=== PATIENT | female | born 1955 | race Two or more races ===

== ENCOUNTER 2017-03-18 12:22 | Emergency (ER) | payer MEDICAID ==
[~2017-03-18] VITALS: Ht 160 cm; Wt 72.6 kg
[~2017-03-18 12:22] MED LIST: ALBUAER3 IN; ALPR0.5T7 PO; AMIT PO; AMLO10TA2 PO; ATEN100T PO; CARI-316 PO; CHOL1TAB42 PO; CLO01T PO; FLUO20CA19 PO; FURO20TA PO; GABA-497 PO; HYDR12.56 PO; IBUP800T24 PO; INSLANTI SC; LEVO500T21 PO; LISI40TA PO; LORA-516 PO; MET10T PO; METF-371 PO; NOR10T PO; OLAN20TA13 PO; OMEP20CA74 PO; POTA12PO2 PO; RANI300T3 PO; SIMV-8 PO
[2017-03-18 12:47] VITALS: BP 140/86
[2017-03-18] MEDS ORDERED: KETOROLAC TROMETH 60MG/2ML VIAL IM ONE (14:30)
== END 2017-03-18 15:48 | disposition home or self-care (01) ==
LOC: ER 12:22 → EDBD 12:22 → ER 15:48
DX: S63.501A Unspecified sprain of right wrist, initial encounter (principal); S80.02XA Contusion of left knee, initial encounter; S09.90XA Unspecified injury of head, initial encounter; J44.9 Chronic obstructive pulmonary disease, unspecified; I25.10 Atherosclerotic heart disease of native coronary artery without angina pectoris; E11.9 Type 2 diabetes mellitus without complications; K21.9 Gastro-esophageal reflux disease without esophagitis; I10 Essential (primary) hypertension; Z90.710 Acquired absence of both cervix and uterus; Z79.4 Long term (current) use of insulin; W01.0XXA Fall on same level from slipping, tripping and stumbling without subsequent striking against object, initial encounter; Y93.01 Activity, walking, marching and hiking; Y99.8 Other external cause status; Y92.89 Other specified places as the place of occurrence of the external cause
CPT/HCPCS: 70450; 73110; 73562; 96372; 99284; J1885

== ENCOUNTER 2017-07-23 12:43 | Emergency (ER) | payer MEDICAID ==
[~2017-07-23] VITALS: Ht 160 cm; Wt 72.6 kg
[~2017-07-23 12:43] MED LIST changes: -ALBUAER3 IN; -AMIT PO; -GABA-497 PO; +GABA300C10 PO; -IBUP800T24 PO; -LEVO500T21 PO; -MET10T PO; -NOR10T PO; -OLAN20TA13 PO; -RANI300T3 PO; -SIMV-8 PO
[2017-07-23] MEDS ORDERED: cloNIDine HCL 0.1 MG TAB PO ONE (13:15)
[2017-07-23 14:23] LABS: Basophils # (auto) 0 uL; Basophils % (auto) 0.5 % (0.0-2.0); Eosinophils # (auto) 0.1 uL; Eosinophils % (auto) 1.2 % (0.0-7.0); Hematocrit 38.3 % (36.0-46.0); Hemoglobin 12.7 g/dL (12.2-16.2); Lymphocytes % (auto) 39.8 % (10.0-50.0); Mean Corpuscular Hemoglobin 27.6 pg (28.0-32.0); Mean Corpuscular Volume 83.6 fL (80.0-100.0); Monocytes # (auto) 0.4 uL; Monocytes % (auto) 5.2 % (0.0-12.0); Neutrophils % (auto) 53.3 % (37.0-80.0); Nucleated Red Blood Cells % 0.1 %; Platelet Count (auto) 432 10^3/uL (140-450); Red Blood Cells 4.59 10^6/uL (4.0-5.20); Red Cell Distribution Width 13.1 % (11.8-14.3); White Blood Cell 7.6 10^3/uL (4.4-10.8)
[2017-07-23 14:30] LABS: INR 0.95 (0.9-1.15); Partial Thromboplastin Time 28.5 sec (22.64-33.71); Prothrombin Time 10.3 sec (9.37-12.3)
[2017-07-23 14:45] LABS: Alanine Aminotransferase 37 U/L (13-56); Albumin 3.8 g/dL (3.4-5.0); Alkaline Phosphatase 176 U/L (45-117); Anion Gap 9 (5-15); Aspartate Aminotransferase 43 U/L (15-37); BUN/Creatinine Ratio 14.1; Bilirubin, Total 0.1 mg/dL (0.2-1.0); Blood Urea Nitrogen 13 mg/dL (7-18); Calcium 9.3 mg/dL (8.5-10.1); Carbon Dioxide 29 mmol/L (21-32); Chloride 97 mmol/L (98-107); GFR African American 80 mL/min; GFR Non-African American 66 mL/min; Glucose 344 mg/dL (74-106); Potassium 3.8 mmol/L (3.5-5.1); Sodium 135 mmol/L (136-145); Total Protein 8.1 g/dL (6.4-8.2)
[2017-07-23 15:01] LABS: Urine Bacteria NONE SEEN /hpf (None Seen); Urine Blood Negative /uL (Negative); Urine WBC <1 /hpf (0 - 5)
[2017-07-23] MEDS ORDERED: InsuLIN REG 1unit/0.01ml Soln (100units/ml) SC ONE (16:30)
[2017-07-23] MEDS ORDERED: HYDROcodone-ACET 10/325MG TAB PO ONE (17:00)
[2017-07-23 17:14] VITALS: BP 167/95
== END 2017-07-23 17:36 | disposition home or self-care (01) ==
LOC: ER 12:43 → EDBD 12:43 → ER 17:36
DX: I10 Essential (primary) hypertension (principal); R51 Headache; K21.9 Gastro-esophageal reflux disease without esophagitis; J44.9 Chronic obstructive pulmonary disease, unspecified; E11.9 Type 2 diabetes mellitus without complications; E78.5 Hyperlipidemia, unspecified; Z90.710 Acquired absence of both cervix and uterus; Z79.4 Long term (current) use of insulin
CPT/HCPCS: 36415; 71046; 80053; 81001; 82962; 83880; 84484; 85025; 85610; 85730; 93005; 96372; 99285; J1815

== ENCOUNTER 2017-09-21 16:42 | Emergency (ER) | payer MEDICAID ==
[~2017-09-21] VITALS: Ht 160 cm; Wt 74.8 kg
[2017-09-21 16:57] VITALS: BP 177/106
[2017-09-21 18:25] LABS: Basophils # (auto) 0.1 uL; Hematocrit 38.6 % (36.0-46.0); Hemoglobin 13.2 g/dL (12.2-16.2); Mean Corpuscular Hgb Conc. 34.2 g/dL (32.0-36.0); Monocytes # (auto) 0.6 uL; Neutrophils # (auto) 5.6 uL; Nucleated Red Blood Cells % 0.2 %; Platelet Count (auto) 584 10^3/uL (140-450)
[2017-09-21 18:27] LABS: Eosinophils # (auto) 0 uL; Eosinophils % (auto) 0.5 % (0.0-7.0); Lymphocytes # (auto) 3.9 uL; Lymphocytes % (auto) 37.6 % (10.0-50.0); Mean Corpuscular Hemoglobin 27.8 pg (28.0-32.0); Mean Corpuscular Volume 81.5 fL (80.0-100.0); Monocytes % (auto) 6.2 % (0.0-12.0); Neutrophils % (auto) 54.7 % (37.0-80.0); Red Blood Cells 4.74 10^6/uL (4.0-5.20); Red Cell Distribution Width 14.2 % (11.8-14.3); White Blood Cell 10.3 10^3/uL (4.4-10.8)
[2017-09-21 18:44] LABS: Albumin 4.4 g/dL (3.4-5.0); Anion Gap 11 (5-15); Calcium 9.1 mg/dL (8.5-10.1); Carbon Dioxide 22 mmol/L (21-32); Chloride 97 mmol/L (98-107); Glucose 166 mg/dL (74-106); Potassium 3.4 mmol/L (3.5-5.1); Sodium 130 mmol/L (136-145)
[2017-09-21 18:49] LABS: Alanine Aminotransferase 30 U/L (13-56); Alkaline Phosphatase 87 U/L (45-117); Aspartate Aminotransferase 12 U/L (15-37); BUN/Creatinine Ratio 7.4; Bilirubin, Total 0.3 mg/dL (0.2-1.0); Blood Urea Nitrogen 7 mg/dL (7-18); GFR African American 78 mL/min; GFR Non-African American 65 mL/min; Total Protein 8.7 g/dL (6.4-8.2)
== END 2017-09-21 22:40 | disposition left against medical advice (07) ==
LOC: EDBD 16:42 → ER 16:58
DX: I10 Essential (primary) hypertension (principal); R55 Syncope and collapse; Z53.21 Procedure and treatment not carried out due to patient leaving prior to being seen by health care provider
CPT/HCPCS: 36415; 70450; 71045; 80053; 84484; 85025; 93005

== ENCOUNTER 2017-10-11 13:55 | Emergency (ER) | payer MEDICAID ==
[~2017-10-11] VITALS: Ht 160 cm; Wt 71.2 kg
[2017-10-11 14:15] VITALS: BP 179/82
[2017-10-11] MEDS ORDERED: ACETAMINOPHEN 650 mg PER 20 mL UD PO ONE (14:15)
[2017-10-11 14:19] LABS: Basophils # (auto) 0 uL; Basophils % (auto) 0.6 % (0.0-2.0); Eosinophils # (auto) 0 uL; Eosinophils % (auto) 0.1 % (0.0-7.0); Hematocrit 35.4 % (36.0-46.0); Hemoglobin 11.5 g/dL (12.2-16.2); Lymphocytes # (auto) 1.2 uL; Lymphocytes % (auto) 18.1 % (10.0-50.0); Mean Corpuscular Hemoglobin 27.2 pg (28.0-32.0); Mean Corpuscular Hgb Conc. 32.6 g/dL (32.0-36.0); Mean Corpuscular Volume 83.3 fL (80.0-100.0); Monocytes # (auto) 0.9 uL; Monocytes % (auto) 13.5 % (0.0-12.0); Neutrophils # (auto) 4.5 uL; Neutrophils % (auto) 67.7 % (37.0-80.0); Nucleated Red Blood Cells % 0.2 %; Platelet Count (auto) 395 10^3/uL (140-450); Red Blood Cells 4.25 10^6/uL (4.0-5.20); Red Cell Distribution Width 14.4 % (11.8-14.3); White Blood Cell 6.7 10^3/uL (4.4-10.8)
[2017-10-11 14:36] LABS: Anion Gap 10 (5-15); Blood Urea Nitrogen 7 mg/dL (7-18); Carbon Dioxide 25 mmol/L (21-32); Chloride 101 mmol/L (98-107); Glucose 244 mg/dL (74-106); Potassium 3.5 mmol/L (3.5-5.1); Sodium 136 mmol/L (136-145)
[2017-10-11 14:37] LABS: Alanine Aminotransferase 27 U/L (13-56); Albumin 3.3 g/dL (3.4-5.0); Aspartate Aminotransferase 12 U/L (15-37); Calcium 8.7 mg/dL (8.5-10.1); GFR African American 73 mL/min; GFR Non-African American 60 mL/min
[2017-10-11 14:39] LABS: Alkaline Phosphatase 134 U/L (45-117); Bilirubin, Total 0.2 mg/dL (0.2-1.0); Total Protein 7.8 g/dL (6.4-8.2)
[2017-10-11 15:49] LABS: Urine Bacteria MANY /hpf (None Seen); Urine Blood Negative /uL (Negative); Urine Mucus FEW (None Seen); Urine Specific Gravity 1.009 (1.001-1.035); Urine WBC 12 /hpf (0 - 5)
[2017-10-11] MEDS ORDERED: cefTRIAXone 1GM/10ml IVPUSH 10 ML IV ONE (16:00)
== END 2017-10-11 16:11 | disposition home or self-care (01) ==
LOC: EDUNIT# 13:55 → EDBD 13:55 → ER 13:55
DX: N39.0 Urinary tract infection, site not specified (principal); R51 Headache; R53.1 Weakness; J44.9 Chronic obstructive pulmonary disease, unspecified; E11.9 Type 2 diabetes mellitus without complications; K21.9 Gastro-esophageal reflux disease without esophagitis; E78.5 Hyperlipidemia, unspecified; I10 Essential (primary) hypertension
CPT/HCPCS: 36415; 71045; 80053; 81001; 83605; 84484; 85025; 87040; 93005; 94761; 96374

== ENCOUNTER 2017-12-12 12:20 | Emergency (ER) | payer MEDICAID ==
[~2017-12-12] VITALS: Ht 160 cm; Wt 70.3 kg
[2017-12-12 13:21] LABS: Basophils # (auto) 0 uL; Eosinophils # (auto) 0 uL; Eosinophils % (auto) 0.4 % (0.0-7.0); Lymphocytes # (auto) 2.6 uL; Mean Corpuscular Volume 80.8 fL (80.0-100.0); White Blood Cell 7.1 10^3/uL (4.4-10.8)
[2017-12-12 13:22] LABS: Basophils % (auto) 0.5 % (0.0-2.0); Hematocrit 37.1 % (36.0-46.0); Hemoglobin 12.5 g/dL (12.2-16.2); Lymphocytes % (auto) 37.2 % (10.0-50.0); Mean Corpuscular Hemoglobin 27.2 pg (28.0-32.0); Mean Corpuscular Hgb Conc. 33.7 g/dL (32.0-36.0); Monocytes # (auto) 0.5 uL; Monocytes % (auto) 6.9 % (0.0-12.0); Neutrophils # (auto) 3.9 uL; Platelet Count (auto) 317 10^3/uL (140-450); Red Cell Distribution Width 14.3 % (11.8-14.3)
[2017-12-12 13:41] LABS: Partial Thromboplastin Time 29.4 sec (23.78-33.04); Prothrombin Time 10.7 sec (9.27-12.13)
[2017-12-12 13:44] LABS: Alanine Aminotransferase 22 U/L (13-56); Albumin 3.7 g/dL (3.4-5.0); Alkaline Phosphatase 99 U/L (45-117); Anion Gap 12 (5-15); Aspartate Aminotransferase 15 U/L (15-37); BUN/Creatinine Ratio 9.2; Bilirubin, Total 0.3 mg/dL (0.2-1.0); Blood Alcohol < 3.0 mg/dL (0-5); Blood Urea Nitrogen 9 mg/dL (7-18); Calcium 8.3 mg/dL (8.5-10.1); Carbon Dioxide 25 mmol/L (21-32); Chloride 103 mmol/L (98-107); GFR African American 74 mL/min; GFR Non-African American 61 mL/min; Glucose 379 mg/dL (74-106); Potassium 3.9 mmol/L (3.5-5.1); Sodium 140 mmol/L (136-145); Total Protein 7.4 g/dL (6.4-8.2)
[2017-12-12 14:14] LABS: Acetaminophen < 2.0 ug/mL (10-30); Salicylate < 1.7 mg/dL (2.8-20.0)
[2017-12-12 14:44] LABS: Urine Bacteria NONE SEEN /hpf (None Seen); Urine Blood Negative /uL (Negative); Urine Specific Gravity 1.012 (1.001-1.035); Urine WBC <1 /hpf (0 - 5)
[2017-12-12 15:29] LABS: Alcohol, Urine < 3.0 mg/dL (0-5); Amphetamine Screen, Urine NEGATIVE (NEGATIVE); Barbiturate Scree,Urine NEGATIVE (NEGATIVE); Benzodiazephine Screen, Urine POSITIVE (NEGATIVE); Cannabinoid Screen, Urine NEGATIVE (NEGATIVE); Cocaine Screen, Urine NEGATIVE (NEGATIVE); Opiate Scree,Urine NEGATIVE (NEGATIVE); Phencyclidine Screen, Urine NEGATIVE (NEGATIVE)
[2017-12-12] MEDS ORDERED: cloNIDine HCL 0.1 MG TAB PO ONE (15:45)
[2017-12-12] MEDS ORDERED: LABETALOL HCL 5 MG/ML ML 20ML VIAL IV ONE (16:30)
[2017-12-12 18:58] VITALS: BP 155/68
[2017-12-12] MEDS ORDERED: ALPRAZolam 0.5 MG TAB PO ONE (20:00)
== END 2017-12-12 21:15 | disposition home or self-care (01) ==
LOC: EDUNIT# 12:20 → EDBD 12:20 → ER 12:24
DX: R45.851 Suicidal ideations (principal); F32.9 Major depressive disorder, single episode, unspecified; F41.9 Anxiety disorder, unspecified; J44.9 Chronic obstructive pulmonary disease, unspecified; I10 Essential (primary) hypertension; K21.9 Gastro-esophageal reflux disease without esophagitis; E11.9 Type 2 diabetes mellitus without complications; E78.5 Hyperlipidemia, unspecified; Z90.710 Acquired absence of both cervix and uterus
CPT/HCPCS: 36415; 71045; 80053; 80307; 80320; 80329; 81001; 84484; 85025; 85610; 85730; 93005; 96374

== ENCOUNTER 2017-12-21 13:09 | Inpatient (IN) | payer MEDICAID ==
[~2017-12-21] VITALS: Ht 170.2 cm; Wt 73.1 kg
[2017-12-21] MEDS ORDERED: SODIUM CHLORIDE 0.9% 1,000 ML IVB ONE (14:10)
[2017-12-21 14:18] LABS: Basophils # (auto) 0.1 uL; Basophils % (auto) 1.1 % (0.0-2.0); Eosinophils # (auto) 0 uL; Hemoglobin 12.4 g/dL (12.2-16.2); Monocytes # (auto) 0.6 uL; Red Cell Distribution Width 14.2 % (11.8-14.3)
[2017-12-21 14:19] LABS: Eosinophils % (auto) 0.4 % (0.0-7.0); Hematocrit 36.6 % (36.0-46.0); Lymphocytes # (auto) 2.9 uL; Lymphocytes % (auto) 33.3 % (10.0-50.0); Mean Corpuscular Hemoglobin 27.4 pg (28.0-32.0); Mean Corpuscular Hgb Conc. 33.8 g/dL (32.0-36.0); Monocytes % (auto) 7.1 % (0.0-12.0); Neutrophils # (auto) 5.1 uL; Neutrophils % (auto) 58.1 % (37.0-80.0); Platelet Count (auto) 364 10^3/uL (140-450); Red Blood Cells 4.52 10^6/uL (4.0-5.20); White Blood Cell 8.7 10^3/uL (4.4-10.8)
[2017-12-21 14:34] LABS: Alanine Aminotransferase 24 U/L (13-56); Albumin 3.6 g/dL (3.4-5.0); Anion Gap 10 (5-15); Aspartate Aminotransferase 15 U/L (15-37); BUN/Creatinine Ratio 6.8; Blood Alcohol < 3.0 mg/dL (0-5); Blood Urea Nitrogen 7 mg/dL (7-18); Calcium 8.8 mg/dL (8.5-10.1); Carbon Dioxide 26 mmol/L (21-32); Chloride 105 mmol/L (98-107); GFR African American 70 mL/min; GFR Non-African American 58 mL/min; Glucose 249 mg/dL (74-106); Potassium 3.6 mmol/L (3.5-5.1); Sodium 141 mmol/L (136-145)
[2017-12-21 14:36] LABS: Alkaline Phosphatase 115 U/L (45-117); Bilirubin, Total 0.2 mg/dL (0.2-1.0); Total Protein 7.5 g/dL (6.4-8.2)
[2017-12-21 14:38] LABS: Acetaminophen < 2.0 ug/mL (10-30); Salicylate < 1.7 mg/dL (2.8-20.0)
[2017-12-21] MEDS: MAGNESIUM SULFATE 1GM/100ML 100 ML IV SCH ×2 (15:37→16:45)
[2017-12-21] MEDS ORDERED: ALPRAZolam 0.5 MG TAB PO ONE ×2 (15:45→17:45)
[2017-12-21] MEDS ORDERED: cloNIDine HCL 0.1 MG TAB PO ONE (15:45)
[2017-12-21 16:26] LABS: Urine Bacteria FEW /hpf (None Seen); Urine Blood Negative /uL (Negative); Urine Hyaline Cast FEW /lpf (0 - 2); Urine Specific Gravity 1.007 (1.001-1.035); Urine WBC 11 /hpf (0 - 5)
[2017-12-21 16:44] LABS: Alcohol, Urine < 3.0 mg/dL (0-5); Amphetamine Screen, Urine NEGATIVE (NEGATIVE); Barbiturate Scree,Urine NEGATIVE (NEGATIVE); Cannabinoid Screen, Urine NEGATIVE (NEGATIVE); Cocaine Screen, Urine NEGATIVE (NEGATIVE); Opiate Scree,Urine NEGATIVE (NEGATIVE); Phencyclidine Screen, Urine NEGATIVE (NEGATIVE)
[2017-12-21] MEDS ORDERED: cefTRIAXone 1GM/10ml IVPUSH 10 ML IV ONE ×2 (16:45→17:15)
[2017-12-21 17:14] LABS: Benzodiazephine Screen, Urine POSITIVE (NEGATIVE)
[2017-12-21] MEDS ORDERED: DEXTROSE (50%) 50ML SYRG IV PRN (17:15)
[2017-12-21] MEDS ORDERED: NITROGLYCERIN 0.4 MG SL TAB SL PRN (17:15)
[2017-12-21] MEDS ORDERED: MORPHINE SULF INJ 2 MG/ML SYRINGE 1ML IV PRN ×2 (17:15)
[2017-12-21] MEDS ORDERED: TEMAZEPAM 15 MG CAP PO PRN (17:15)
[2017-12-21] MEDS ORDERED: LACTULOSE 20Gm/30ML SOLN PO PRN (17:15)
[2017-12-21] MEDS ORDERED: PROMETHAZINE HCL 25 MG/ML 1ML IV PRN (17:15)
[2017-12-21] MEDS ORDERED: ALBUTEROL SULF 2.5 MG/0.5ML(0.5%) NEB SOLN NEB PRN (17:15)
[2017-12-21 19:33] LABS: Albumin 3.3 g/dL (3.4-5.0); BUN/Creatinine Ratio 5.8; Calcium 8.1 mg/dL (8.5-10.1); Potassium 3.3 mmol/L (3.5-5.1)
[2017-12-21 19:35] LABS: Bilirubin, Total 0.1 mg/dL (0.2-1.0)
[2017-12-21 19:36] LABS: Salicylate 3.5 mg/dL (2.8-20.0)
[2017-12-21 19:41] LABS: Acetaminophen < 2.0 ug/mL (10-30)
[2017-12-21] MEDS: IPRATROPIUM BROM 0.5 MG/2.5ML INH SOL NEB SCH (19:47)
[2017-12-21] MEDS: ALBUTEROL SULF 2.5 MG/0.5ML(0.5%) NEB SOLN NEB SCH (19:47)
[2017-12-21] MEDS: SODIUM CHLORIDE 0.9% 1,000 ML IV SCH (19:58)
[2017-12-21] MEDS: POTASSIUM CHL 20 Meq TABLET PO SCH (20:56)
[2017-12-21] MEDS ORDERED: LABETALOL HCL 5 MG/ML ML 20ML VIAL IV ONE (21:15)
[2017-12-21] MEDS: cloNIDine HCL 0.1 MG TAB PO SCH (21:25)
[2017-12-21] MEDS: SODIUM CHLOR 0.9% PF (SALINE LOCK) 10ML VIAL/SYR IV SCH (22:11)
[2017-12-21] MEDS: ALPRAZolam 0.5 MG TAB PO SCH (22:17)
[2017-12-21] MEDS: GABAPENTIN 300 MG CAP PO SCH (22:17)
[2017-12-21] MEDS: ATENOLOL 25 MG TAB PO SCH (22:17)
[2017-12-21] MEDS: ACCU-CHEK COMFORT CURVE STRIP VI SCH (22:35)
[2017-12-21] MEDS: InsuLIN REG 1unit/0.01ml Soln (100units/ml) SC SCH (22:57)
[2017-12-22] MEDS ORDERED: hydrALAZINE HCL 20 MG/ML VL IV ONE
[2017-12-22] MEDS: ALBUTEROL SULF 2.5 MG/0.5ML(0.5%) NEB SOLN NEB SCH ×3 (00:29→11:47)
[2017-12-22] MEDS: IPRATROPIUM BROM 0.5 MG/2.5ML INH SOL NEB SCH ×3 (00:29→11:47)
[2017-12-22 01:35] VITALS: BP 154/90
[2017-12-22 02:15] VITALS: BP 167/80
[2017-12-22] MEDS: MORPHINE SULF INJ 2 MG/ML SYRINGE 1ML IV PRN ×2 (02:56→12:35)
[2017-12-22] MEDS: SODIUM CHLORIDE 0.9% 1,000 ML IV SCH ×2 (03:07→13:07)
[2017-12-22 04:30] VITALS: BP 183/86
[2017-12-22 04:40] VITALS: BP 169/88
[2017-12-22] MEDS: SODIUM CHLOR 0.9% PF (SALINE LOCK) 10ML VIAL/SYR IV SCH ×2 (05:49→14:00)
[2017-12-22] MEDS ORDERED: METOPROLOL TARTRATE 1MG/1ML-5ML VIAL IV ONE (06:00)
[2017-12-22] MEDS: ACCU-CHEK COMFORT CURVE STRIP VI SCH ×2 (06:07→12:41)
[2017-12-22] MEDS: InsuLIN REG 1unit/0.01ml Soln (100units/ml) SC SCH ×2 (06:08→12:45)
[2017-12-22 06:13] LABS: Cholesterol 104 mg/dL (< 200); HDL Cholesterol 41 mg/dL (40-59); LDL Cholesterol 47 mg/dL (< 100); Triglycerides 178 mg/dL (< 150)
[2017-12-22] MEDS ORDERED: cefTRIAXone 1GM/10ml IVPUSH 10 ML IV SCH (09:00)
[2017-12-22] MEDS ORDERED: ENOXAPARIN SOD 40 MG/0.4 ML SYRINGE SC SCH (10:00)
[2017-12-22] MEDS ORDERED: amLODIPine BESYLATE 5 MG TAB PO SCH (10:00)
[2017-12-22] MEDS ORDERED: FUROSEMIDE 20 MG TAB PO SCH (10:00)
[2017-12-22] MEDS ORDERED: CHOLECALCIFEROL (VITD3) 1,000 UNIT TAB PO SCH (10:00)
[2017-12-22] MEDS ORDERED: FLUoxetine HCL 20 MG CAP PO SCH (10:00)
[2017-12-22] MEDS ORDERED: PANTOPRAZOLE 40 MG TAB PO SCH (10:00)
[2017-12-22] MEDS ORDERED: HCTZ 25 MG TAB PO SCH (10:00)
[2017-12-22] MEDS ORDERED: LISINOPRIL 20 MG TAB PO SCH (10:00)
[2017-12-22] MEDS ORDERED: INSULIN LANTUS (GLARGINE) 1 /0.01ml (100units/ml) SC SCH (10:00)
[2017-12-22] MEDS: ATENOLOL 25 MG TAB PO SCH (10:13)
[2017-12-22] MEDS: POTASSIUM CHL 20 Meq TABLET PO SCH (10:13)
[2017-12-22] MEDS: GABAPENTIN 300 MG CAP PO SCH (10:14)
[2017-12-22] MEDS: cloNIDine HCL 0.1 MG TAB PO SCH (10:15)
[2017-12-22] MEDS: ALPRAZolam 0.5 MG TAB PO SCH (10:15)
[2017-12-22 14:41] VITALS: BP 167/80
== END 2017-12-22 17:28 | disposition home or self-care (01) | DRG 812 ==
LOC: EDBD 13:09 → ER 13:09 → TELE 13:10 → TELE-WESTW 12-22 01:30
PROVIDERS: ADMIT Internal Medicine; ATTEND Internal Medicine
DX: T39.1X2A Poisoning by 4-Aminophenol derivatives, intentional self-harm, initial encounter (principal); R45.851 Suicidal ideations; E11.40 Type 2 diabetes mellitus with diabetic neuropathy, unspecified; T45.0X2A Poisoning by antiallergic and antiemetic drugs, intentional self-harm, initial encounter; T43.592A Poisoning by other antipsychotics and neuroleptics, intentional self-harm, initial encounter; E11.65 Type 2 diabetes mellitus with hyperglycemia; I10 Essential (primary) hypertension; N39.0 Urinary tract infection, site not specified; F32.9 Major depressive disorder, single episode, unspecified; J44.9 Chronic obstructive pulmonary disease, unspecified; F41.9 Anxiety disorder, unspecified; K21.9 Gastro-esophageal reflux disease without esophagitis; E78.5 Hyperlipidemia, unspecified; E83.42 Hypomagnesemia; Z90.710 Acquired absence of both cervix and uterus; Y92.89 Other specified places as the place of occurrence of the external cause; Z79.4 Long term (current) use of insulin; Z82.49 Family history of ischemic heart disease and other diseases of the circulatory system
CPT/HCPCS: 36415; 71045; 80053; 80061; 80307; 80320; 80329; 81001; 82248; 82962; 83036; 83735; 85025; 87086; 93005; 94640; 94761; 96361; 96365; 96375; 96376; J1815

== ENCOUNTER 2018-09-26 10:43 | Emergency (ER) | payer MEDICAID ==
[~2018-09-26] VITALS: Ht 162.6 cm; Wt 68.0 kg
[~2018-09-26 10:43] MED LIST changes: +AMLO10TA12 PO; -AMLO10TA2 PO; -CARI-316 PO; +CARI350T22 PO; -HYDR12.56 PO
[2018-09-26] MEDS ORDERED: PANTOPRAZOLE 40 MG TAB PO ONE (11:30)
[2018-09-26 12:12] LABS: Basophils # (auto) 0.1 uL; Basophils % (auto) 0.6 % (0.0-2.0); Eosinophils # (auto) 0.1 uL; Eosinophils % (auto) 0.9 % (0.0-7.0); Hematocrit 42.7 % (36.0-46.0); Hemoglobin 14.5 g/dL (12.2-16.2); Lymphocytes % (auto) 31.5 % (10.0-50.0); Mean Corpuscular Hemoglobin 30.2 pg (28.0-32.0); Mean Corpuscular Hgb Conc. 34.1 g/dL (32.0-36.0); Mean Corpuscular Volume 88.5 fL (80.0-100.0); Monocytes # (auto) 0.6 uL; Monocytes % (auto) 6.1 % (0.0-12.0); Neutrophils # (auto) 5.7 uL; Neutrophils % (auto) 60.9 % (37.0-80.0); Nucleated Red Blood Cells % 0.2 %; Platelet Count (auto) 445 10^3/uL (140-450); Red Blood Cells 4.82 10^6/uL (4.0-5.20); White Blood Cell 9.4 10^3/uL (4.4-10.8)
[2018-09-26 12:37] LABS: Albumin 4.2 g/dL (3.4-5.0); BUN/Creatinine Ratio 8.5; Bilirubin, Total 0.3 mg/dL (0.2-1.0); Total Protein 8.6 g/dL (6.4-8.2)
[2018-09-26 13:20] VITALS: BP 183/103
[2018-09-26] MEDS ORDERED: POTASSIUM CHL 10% (20 MEQ/15ML) 15ml ORAL SOLN PO ONE (14:15)
== END 2018-09-26 14:32 | disposition home or self-care (01) ==
LOC: ER 10:48
DX: K29.70 Gastritis, unspecified, without bleeding (principal); E87.6 Hypokalemia; F17.210 Nicotine dependence, cigarettes, uncomplicated; J44.9 Chronic obstructive pulmonary disease, unspecified; E11.9 Type 2 diabetes mellitus without complications; E78.5 Hyperlipidemia, unspecified; I10 Essential (primary) hypertension; Z90.710 Acquired absence of both cervix and uterus; Z79.4 Long term (current) use of insulin; Z79.899 Other long term (current) drug therapy
CPT/HCPCS: 36415; 71046; 80053; 85025

== ENCOUNTER 2019-05-30 08:43 | Emergency (ER) | payer MEDICAID ==
[~2019-05-30] VITALS: Ht 157.5 cm; Wt 61.2 kg
[~2019-05-30 08:43] MED LIST changes: -AMLO10TA12 PO; +AMLO10TA13 PO; +FURO1TAB33 PO; -FURO20TA PO
[2019-05-30 09:52] LABS: Basophils # (auto) 0.1 uL; Eosinophils # (auto) 0 uL; Lymphocytes # (auto) 1.9 uL
[2019-05-30 09:54] LABS: Basophils % (auto) 0.7 % (0.0-2.0); Eosinophils % (auto) 0.4 % (0.0-7.0); Hematocrit 39.7 % (36.0-46.0); Lymphocytes % (auto) 18.7 % (10.0-50.0); Mean Corpuscular Hemoglobin 28.6 pg (28.0-32.0); Mean Corpuscular Hgb Conc. 35.4 g/dL (32.0-36.0); Mean Corpuscular Volume 80.8 fL (80.0-100.0); Monocytes # (auto) 0.6 uL; Monocytes % (auto) 5.8 % (0.0-12.0); Neutrophils # (auto) 7.5 uL; Neutrophils % (auto) 74.4 % (37.0-80.0); Platelet Count (auto) 563 10^3/uL (140-450); Red Blood Cells 4.91 10^6/uL (4.0-5.20); Red Cell Distribution Width 14.5 % (11.8-14.3)
[2019-05-30 10:09] LABS: Albumin 3.4 g/dL (3.4-5.0); Calcium 7.4 mg/dL (8.5-10.1)
[2019-05-30 10:16] LABS: BUN/Creatinine Ratio 3.5; Bilirubin, Total 0.3 mg/dL (0.2-1.0); Total Protein 7.7 g/dL (6.4-8.2)
[2019-05-30 10:20] LABS: Potassium 2.2 mmol/L (3.5-5.1)
[2019-05-30] MEDS ORDERED: POTASSIUM EFFERVESENT TAB 25 MEQ PO ONE (10:30)
[2019-05-30] MEDS ORDERED: cloNIDine HCL 0.1 MG TAB PO ONE (11:00)
[2019-05-30 11:08] VITALS: BP 185/101
== END 2019-05-30 11:27 | disposition left against medical advice (07) ==
LOC: ER 08:47
DX: M54.5 Low back pain (principal); E87.1 Hypo-osmolality and hyponatremia; E87.6 Hypokalemia; J44.9 Chronic obstructive pulmonary disease, unspecified; E11.9 Type 2 diabetes mellitus without complications; K21.9 Gastro-esophageal reflux disease without esophagitis; E78.5 Hyperlipidemia, unspecified; I10 Essential (primary) hypertension; Z90.710 Acquired absence of both cervix and uterus; Z87.891 Personal history of nicotine dependence; Z79.4 Long term (current) use of insulin; Z79.899 Other long term (current) drug therapy
CPT/HCPCS: 36415; 80053; 85025

== ENCOUNTER 2019-05-31 09:00 | Emergency (ER) | payer MEDICAID ==
[~2019-05-31] VITALS: Ht 157.5 cm; Wt 61.2 kg
[2019-05-31 09:21] VITALS: BP 156/92
[2019-05-31] MEDS ORDERED: ACETAMINOPHEN 325 MG TAB PO ONE (11:15)
== END 2019-05-31 11:11 | disposition home or self-care (01) ==
LOC: ER 09:01
DX: S00.83XA Contusion of other part of head, initial encounter (principal); N39.0 Urinary tract infection, site not specified; J44.9 Chronic obstructive pulmonary disease, unspecified; E11.9 Type 2 diabetes mellitus without complications; K21.9 Gastro-esophageal reflux disease without esophagitis; E78.5 Hyperlipidemia, unspecified; I10 Essential (primary) hypertension; Z87.891 Personal history of nicotine dependence; Z79.899 Other long term (current) drug therapy; W01.0XXA Fall on same level from slipping, tripping and stumbling without subsequent striking against object, initial encounter; Y93.01 Activity, walking, marching and hiking; Y92.89 Other specified places as the place of occurrence of the external cause; Y99.8 Other external cause status
CPT/HCPCS: 70450; 81002

== ENCOUNTER 2019-08-27 09:03 | Emergency (ER) | payer MEDICAID ==
[~2019-08-27] VITALS: Ht 157.5 cm; Wt 58.1 kg
[2019-08-27 09:09] VITALS: BP 157/50
[2019-08-27] MEDS ORDERED: ACETAMINOPHEN 500 MG TAB PO ONE (09:15)
== END 2019-08-27 10:52 | disposition home or self-care (01) ==
LOC: ER 09:08
DX: S63.501A Unspecified sprain of right wrist, initial encounter (principal); J44.9 Chronic obstructive pulmonary disease, unspecified; E11.9 Type 2 diabetes mellitus without complications; K21.9 Gastro-esophageal reflux disease without esophagitis; E78.5 Hyperlipidemia, unspecified; I10 Essential (primary) hypertension; F17.210 Nicotine dependence, cigarettes, uncomplicated; Z90.710 Acquired absence of both cervix and uterus; W01.0XXA Fall on same level from slipping, tripping and stumbling without subsequent striking against object, initial encounter; Y93.89 Activity, other specified; Y92.89 Other specified places as the place of occurrence of the external cause; Y99.8 Other external cause status
CPT/HCPCS: 29125; 73110

== ENCOUNTER 2020-09-10 15:48 | Inpatient (IN) | payer MEDICAID ==
[~2020-09-10] VITALS: Ht 167.6 cm; Wt 60.2 kg
[~2020-09-10 15:48] MED LIST changes: +AMLO-496 PO; -AMLO10TA13 PO; -LISI40TA PO; +LISI40TA11 PO
[2020-09-10] MEDS ORDERED: AZITHROMYCIN 500MG/ 250ML 250 ML IV ONE (16:45)
[2020-09-10] MEDS ORDERED: FUROSEMIDE 40 MG/4 ML VIAL IV ONE (16:45)
[2020-09-10] MEDS ORDERED: cefTRIAXone 1GM/50ML D5W 50 ML IV ONE (16:45)
[2020-09-10 16:49] LABS: Hematocrit 41.4 % (36.0-46.0); Hemoglobin 14.2 g/dL (12.2-16.2); Mean Corpuscular Hemoglobin 31.6 pg (28.0-32.0); Mean Corpuscular Hgb Conc. 34.3 g/dL (32.0-36.0); Mean Corpuscular Volume 92.2 fL (80.0-100.0); Platelet Count (auto) 551 10^3/uL (140-450); Red Blood Cells 4.49 10^6/uL (4.0-5.20); Red Cell Distribution Width 14.5 % (11.8-14.3); White Blood Cell 9.8 10^3/uL (4.4-10.8)
[2020-09-10 16:52] LABS: Basophils % (manual) 0 (0.0-2.0); Blast Cells 0; Eosinophils % (manual) 0 (0-7); Metamyelocytes % 0; Myelocytes % 0; Promyelocytes % 0; Reactive Lymphocytes 0
[2020-09-10 16:55] LABS: Urine Amorphous Crystal FEW /hpf (None Seen); Urine Bacteria FEW /hpf (None Seen); Urine Blood TRACE /uL (Negative); Urine Specific Gravity 1.007 (1.001-1.035); Urine WBC 7 /hpf (0 - 5)
[2020-09-10] MEDS ORDERED: methylPREDNISolone SOD SUCC 125 MG/2 ML VL IV ONE (17:00)
[2020-09-10 17:04] VITALS: BP 175/93
[2020-09-10 17:06] LABS: Albumin 3.3 g/dL (3.4-5.0); Anion Gap 21 (5-15); Blood Urea Nitrogen 17 mg/dL (7-18); Calcium 7.6 mg/dL (8.5-10.1); Carbon Dioxide 16 mmol/L (21-32); Chloride 98 mmol/L (98-107); Glucose 270 mg/dL (74-106); Magnesium 1.4 mg/dL (1.6-2.6); Sodium 135 mmol/L (136-145)
[2020-09-10 17:07] LABS: INR 0.98 (0.9-1.15); Partial Thromboplastin Time 26.9 sec (23.0-31.2)
[2020-09-10 17:10] LABS: Band Neutrophils % (manual) 3
[2020-09-10 17:11] LABS: Alanine Aminotransferase 15 U/L (13-56); Alkaline Phosphatase 99 U/L (45-117); Aspartate Aminotransferase 13 U/L (15-37); BUN/Creatinine Ratio 8.9; Bilirubin, Total 0.2 mg/dL (0.2-1.0); GFR African American 34 mL/min; GFR Non-African American 28 mL/min; Lactic Acid w/Reflex 10.3 mmol/L (0.4-2.0); Lymphocytes % (manual) 53 (10.0-50.0); Monocytes % (manual) 4 (0-12); Total Protein 7.4 g/dL (6.4-8.2)
[2020-09-10 17:13] LABS: Potassium 2.8 mmol/L (3.5-5.1)
[2020-09-10] MEDS ORDERED: POTASSIUM EFFERVESENT TAB 25 MEQ PO ONE (17:30)
[2020-09-10] MEDS ORDERED: ALUM & MAG HYDROX-SIMETH LIQ(MAALOX) 30 ML PO PRN (18:00)
[2020-09-10] MEDS ORDERED: NITROGLYCERIN 0.4 MG SL TAB SL PRN (18:00)
[2020-09-10] MEDS ORDERED: ONDANSETRON HCL 4 MG/2 ML VIAL IV PRN (18:00)
[2020-09-10] MEDS ORDERED: MORPHINE SULF INJ 2 MG/ML SYRINGE 1ML IV PRN (18:00)
[2020-09-10] MEDS ORDERED: DEXTROSE (50%) 50ML SYRG IV PRN (18:00)
[2020-09-10] MEDS ORDERED: ACETAMINOPHEN 325 MG TAB PO PRN (18:00)
[2020-09-10] MEDS: MAGNESIUM SULFATE 1GM/100ML 100 ML IV SCH ×2 (18:06→19:09)
[2020-09-10] MEDS: FUROSEMIDE 40 MG/4 ML VIAL IV SCH (18:32)
[2020-09-10 18:58] LABS: Alcohol, Urine < 3.0 mg/dL (0-10); Amphetamine Screen, Urine NEGATIVE (NEGATIVE); Barbiturate Scree,Urine NEGATIVE (NEGATIVE); Benzodiazephine Screen, Urine POSITIVE (NEGATIVE); Cannabinoid Screen, Urine NEGATIVE (NEGATIVE); Cocaine Screen, Urine NEGATIVE (NEGATIVE); Opiate Scree,Urine NEGATIVE (NEGATIVE); Phencyclidine Screen, Urine NEGATIVE (NEGATIVE)
[2020-09-10] MEDS ORDERED: PIPERACILLIN-TAZOB 3.375GM 100 ML IV ONE (19:00)
[2020-09-10] MEDS: MORPHINE SULF INJ 2 MG/ML SYRINGE 1ML IV PRN (20:02)
[2020-09-10] MEDS: hydrALAZINE HCL 20 MG/ML VL IV PRN (20:25)
[2020-09-10] MEDS: POTASSIUM CHL 20 Meq TABLET PO SCH (21:36)
[2020-09-10] MEDS: MAGNESIUM OXIDE 400 MG TAB PO SCH (21:37)
[2020-09-10] MEDS: GABAPENTIN 300 MG CAP PO SCH (21:37)
[2020-09-10] MEDS: ALPRAZolam 0.5 MG TAB PO SCH (21:37)
[2020-09-10] MEDS: ATENOLOL 50 MG TAB PO SCH (21:38)
[2020-09-10] MEDS: ACCU-CHEK COMFORT CURVE STRIP VI SCH (21:38)
[2020-09-10] MEDS: INSULIN LANTUS (GLARGINE) 1 /0.01ml (100units/ml) SC SCH (21:40)
[2020-09-10] MEDS ORDERED: BUDESONIDE (INHALATION) 0.5 MG/2 ML NEB NEB SCH (22:00)
[2020-09-10] MEDS ORDERED: LISINOPRIL 20 MG TAB PO SCH (22:00)
[2020-09-10] MEDS ORDERED: cloNIDine HCL 0.1 MG TAB PO PRN (22:00)
[2020-09-10] MEDS ORDERED: ALBUTEROL SULF HFA 90MCG INH 200DOSE IN SCH (22:00)
[2020-09-10] MEDS ORDERED: ALBUTEROL SULF 2.5 MG/0.5ML(0.5%) NEB SOLN ONE (23:37)
[2020-09-11] MEDS ORDERED: PIPERACILLIN-TAZOB 2.25GM 50 ML IV SCH
[2020-09-11] MEDS: cloNIDine HCL 0.1 MG TAB PO PRN ×2 (01:04→07:18)
[2020-09-11] MEDS: PIPERACILLIN-TAZOB 2.25GM 50 ML IV SCH ×4 (03:35→21:00)
[2020-09-11] MEDS: hydrALAZINE HCL 20 MG/ML VL IV PRN ×3 (03:37→16:42)
[2020-09-11] MEDS: HYDROcodone-ACET 5/325MG TAB PO PRN ×3 (04:02→15:40)
[2020-09-11] MEDS ORDERED: ALBUTEROL SULF 2.5 MG/0.5ML(0.5%) NEB SOLN NEB PRN (04:45)
[2020-09-11] MEDS: FUROSEMIDE 40 MG/4 ML VIAL IV SCH (05:59)
[2020-09-11] MEDS: ACCU-CHEK COMFORT CURVE STRIP VI SCH ×4 (06:29→22:21)
[2020-09-11] MEDS: InsuLIN REG 1unit/0.01ml Soln (100units/ml) SC SCH ×3 (07:00→18:12)
[2020-09-11] MEDS: INSULIN LANTUS (GLARGINE) 1 /0.01ml (100units/ml) SC SCH ×2 (07:00→22:21)
[2020-09-11 07:33] LABS: Basophils # (auto) 0 10 ^3/uL (0-0.2); Basophils % (auto) 0.2 % (0.0-2.0); Eosinophils # (auto) 0 10 ^3/uL (0-0.8); Hematocrit 37.1 % (36.0-46.0); Hemoglobin 12.8 g/dL (12.2-16.2); Lymphocytes # (auto) 1.3 10 ^3/uL (0.4-5.4); Mean Corpuscular Hemoglobin 30.5 pg (28.0-32.0); Mean Corpuscular Hgb Conc. 34.5 g/dL (32.0-36.0); Mean Corpuscular Volume 88.4 fL (80.0-100.0); Monocytes # (auto) 0.8 10 ^3/uL (0-1.3); Monocytes % (auto) 5.8 % (0.0-12.0); Neutrophils # (auto) 12.4 10 ^3/uL (1.6-8.6); Platelet Count (auto) 532 10^3/uL (140-450); Red Cell Distribution Width 14.6 % (11.8-14.3); White Blood Cell 14.5 10^3/uL (4.4-10.8)
[2020-09-11 07:42] LABS: BUN/Creatinine Ratio 13.8; Calcium 8.1 mg/dL (8.5-10.1); Magnesium 1.9 mg/dL (1.6-2.6); Potassium 3.3 mmol/L (3.5-5.1)
[2020-09-11] MEDS ORDERED: FAMOTIDINE (10MG/ML) 2ML VL IV SCH (10:00)
[2020-09-11] MEDS ORDERED: DexAMETHasone SOD PHOS 10MG/1ML VIAL INJ IV SCH (10:00)
[2020-09-11] MEDS: ATENOLOL 50 MG TAB PO SCH ×2 (11:28→22:20)
[2020-09-11] MEDS: POTASSIUM CHL 20 Meq TABLET PO SCH ×2 (11:29→22:20)
[2020-09-11] MEDS: FLUoxetine HCL 20 MG CAP PO SCH (11:29)
[2020-09-11] MEDS: MAGNESIUM OXIDE 400 MG TAB PO SCH ×2 (11:29→22:20)
[2020-09-11] MEDS ORDERED: traMADol HCL 50 MG TAB PO ONE (11:30)
[2020-09-11] MEDS: CHOLECALCIFEROL (VITD3) 2,000 UNIT CAP/TAB PO SCH (11:31)
[2020-09-11] MEDS: ALPRAZolam 0.5 MG TAB PO SCH ×2 (11:38→22:21)
[2020-09-11] MEDS ORDERED: amLODIPine BESYLATE 5 MG TAB PO SCH (12:00)
[2020-09-11] MEDS: methylPREDNISolone SOD SUCC 125 MG/2 ML VL IV SCH ×2 (14:15→22:19)
[2020-09-11] MEDS: MORPHINE SULF INJ 2 MG/ML SYRINGE 1ML IV PRN (14:16)
[2020-09-11 15:00] VITALS: BP 172/81
[2020-09-11 17:00] VITALS: BP 187/95
[2020-09-11] MEDS: FUROSEMIDE 40 MG TAB PO SCH (18:02)
[2020-09-11 20:00] VITALS: BP 186/89
[2020-09-11 22:00] VITALS: BP 186/89
[2020-09-11] MEDS: GABAPENTIN 300 MG CAP PO SCH (22:20)
[2020-09-12] MEDS: hydrALAZINE HCL 20 MG/ML VL IV PRN ×3 (01:22→23:05)
[2020-09-12] MEDS: HYDROcodone-ACET 5/325MG TAB PO PRN ×5 (01:23→20:55)
[2020-09-12] MEDS: PIPERACILLIN-TAZOB 2.25GM 50 ML IV SCH ×4 (03:29→20:54)
[2020-09-12] MEDS: cloNIDine HCL 0.1 MG TAB PO PRN (04:28)
[2020-09-12 05:00] VITALS: BP 206/99
[2020-09-12] MEDS: FUROSEMIDE 40 MG TAB PO SCH ×2 (06:07→18:26)
[2020-09-12] MEDS: ACCU-CHEK COMFORT CURVE STRIP VI SCH ×4 (06:07→21:52)
[2020-09-12] MEDS: methylPREDNISolone SOD SUCC 125 MG/2 ML VL IV SCH (06:07)
[2020-09-12] MEDS: InsuLIN REG 1unit/0.01ml Soln (100units/ml) SC SCH ×3 (06:30→17:04)
[2020-09-12] MEDS: INSULIN LANTUS (GLARGINE) 1 /0.01ml (100units/ml) SC SCH ×2 (06:39→21:52)
[2020-09-12 07:20] LABS: Basophils # (auto) 0 10 ^3/uL (0-0.2); Eosinophils # (auto) 0 10 ^3/uL (0-0.8); Hematocrit 36.3 % (36.0-46.0); Hemoglobin 12.1 g/dL (12.2-16.2); Lymphocytes # (auto) 0.8 10 ^3/uL (0.4-5.4); Lymphocytes % (auto) 6.6 % (10.0-50.0); Mean Corpuscular Hemoglobin 30.3 pg (28.0-32.0); Mean Corpuscular Hgb Conc. 33.4 g/dL (32.0-36.0); Mean Corpuscular Volume 90.5 fL (80.0-100.0); Monocytes # (auto) 0.4 10 ^3/uL (0-1.3); Neutrophils % (auto) 90.4 % (37.0-80.0); Nucleated Red Blood Cells % 0.1 %; Platelet Count (auto) 420 10^3/uL (140-450); Red Blood Cells 4.01 10^6/uL (4.0-5.20); Red Cell Distribution Width 14.8 % (11.8-14.3); White Blood Cell 12.1 10^3/uL (4.4-10.8)
[2020-09-12 07:44] LABS: Potassium 4.3 mmol/L (3.5-5.1)
[2020-09-12 09:00] VITALS: BP 165/94
[2020-09-12] MEDS: MAGNESIUM OXIDE 400 MG TAB PO SCH ×2 (09:22→21:40)
[2020-09-12] MEDS: POTASSIUM CHL 20 Meq TABLET PO SCH ×2 (09:22→21:43)
[2020-09-12] MEDS: ATENOLOL 50 MG TAB PO SCH ×2 (09:23→21:41)
[2020-09-12] MEDS: FLUoxetine HCL 20 MG CAP PO SCH (09:23)
[2020-09-12] MEDS: CHOLECALCIFEROL (VITD3) 2,000 UNIT CAP/TAB PO SCH (09:24)
[2020-09-12] MEDS: ALPRAZolam 0.5 MG TAB PO SCH ×2 (09:24→21:40)
[2020-09-12] MEDS: ENOXAPARIN SOD 40 MG/0.4 ML SYRINGE SC SCH (09:24)
[2020-09-12] MEDS: FAMOTIDINE 20 MG TAB PO SCH (09:30)
[2020-09-12] MEDS ORDERED: FAMOTIDINE (10MG/ML) 2ML VL IV SCH (10:00)
[2020-09-12] MEDS: diphenhdrAMINE HCL 25 MG CAP PO PRN ×2 (12:35→21:39)
[2020-09-12 13:00] VITALS: BP 164/87
[2020-09-12] MEDS: cloNIDine HCL 0.1 MG TAB PO SCH ×2 (14:20→21:42)
[2020-09-12 16:47] VITALS: BP 196/97
[2020-09-12] MEDS: methylPREDNISolone SOD SUCC 40 MG/ML VL IV SCH (18:26)
[2020-09-12] MEDS: MORPHINE SULF INJ 2 MG/ML SYRINGE 1ML IV PRN (18:26)
[2020-09-12] MEDS: GABAPENTIN 300 MG CAP PO SCH (21:40)
[2020-09-12 22:00] VITALS: BP 199/101
[2020-09-13 00:40] VITALS: BP 167/80
[2020-09-13] MEDS ORDERED: METOPROLOL TARTRATE 1MG/1ML-5ML VIAL IV PRN (03:15)
[2020-09-13] MEDS: PIPERACILLIN-TAZOB 2.25GM 50 ML IV SCH ×3 (03:15→15:00)
[2020-09-13 05:00] VITALS: BP 186/92
[2020-09-13] MEDS: methylPREDNISolone SOD SUCC 40 MG/ML VL IV SCH (05:07)
[2020-09-13] MEDS: cloNIDine HCL 0.1 MG TAB PO SCH ×3 (05:08→14:00)
[2020-09-13] MEDS: FUROSEMIDE 40 MG TAB PO SCH (05:09)
[2020-09-13] MEDS: hydrALAZINE HCL 20 MG/ML VL IV PRN (06:40)
[2020-09-13] MEDS: ACCU-CHEK COMFORT CURVE STRIP VI SCH ×2 (06:42→12:35)
[2020-09-13] MEDS: INSULIN LANTUS (GLARGINE) 1 /0.01ml (100units/ml) SC SCH (06:43)
[2020-09-13] MEDS: InsuLIN REG 1unit/0.01ml Soln (100units/ml) SC SCH ×2 (06:43→12:36)
[2020-09-13 07:07] LABS: Potassium 4.5 mmol/L (3.5-5.1)
[2020-09-13 07:12] LABS: BUN/Creatinine Ratio 24.5
[2020-09-13] MEDS ORDERED: hydrALAZINE HCL 25 MG TAB PO ONE (07:15)
[2020-09-13] MEDS ORDERED: DOXY-338 PO (09:04)
[2020-09-13] MEDS ORDERED: ATEN100T PO (09:04)
[2020-09-13] MEDS ORDERED: LISI40TA11 PO (09:04)
[2020-09-13] MEDS ORDERED: AMLO-496 PO (09:04)
[2020-09-13] MEDS ORDERED: CLON0.1T PO (09:04)
[2020-09-13] MEDS ORDERED: FURO1TAB31 PO (09:05)
[2020-09-13 09:10] VITALS: BP 182/88
[2020-09-13] MEDS ORDERED: amLODIPine BESYLATE 5 MG TAB PO ONE (09:15)
[2020-09-13] MEDS: FAMOTIDINE 20 MG TAB PO SCH (09:25)
[2020-09-13] MEDS: FLUoxetine HCL 20 MG CAP PO SCH (09:25)
[2020-09-13] MEDS: MAGNESIUM OXIDE 400 MG TAB PO SCH (09:25)
[2020-09-13] MEDS: POTASSIUM CHL 20 Meq TABLET PO SCH (09:25)
[2020-09-13] MEDS: ALPRAZolam 0.5 MG TAB PO SCH (09:26)
[2020-09-13] MEDS: CHOLECALCIFEROL (VITD3) 2,000 UNIT CAP/TAB PO SCH (09:26)
[2020-09-13] MEDS: ENOXAPARIN SOD 40 MG/0.4 ML SYRINGE SC SCH (09:27)
[2020-09-13] MEDS: HYDROcodone-ACET 5/325MG TAB PO PRN (09:31)
[2020-09-13] MEDS ORDERED: ATENOLOL 50 MG TAB PO SCH (10:00)
[2020-09-13] MEDS ORDERED: amLODIPine BESYLATE 5 MG TAB PO SCH (10:00)
[2020-09-13 10:23] VITALS: BP 180/84
[2020-09-13 11:35] VITALS: BP 182/88
[2020-09-13 13:19] VITALS: BP 158/76
[2020-09-13] MEDS ORDERED: hydrALAZINE HCL 25 MG TAB PO SCH (14:00)
[2020-09-14] MEDS ORDERED: amLODIPine BESYLATE 5 MG TAB PO SCH (10:00)
== END 2020-09-13 16:02 | disposition home health service (06) | DRG 133 ==
LOC: EDBD 15:48 → ER 15:48 → EDUNIT# 15:48 → OVERFLOW 15:49 → TELE-WESTW 09-11 15:11
PROVIDERS: ADMIT Hospitalist; ATTEND Hospitalist
PROC: 5A09357 Assistance with Respiratory Ventilation, Less than 24 Consecutive Hours, Continuous Positive Airway Pressure (ICD-10-PCS; principal; 2020-09-10)
DX: J96.01 Acute respiratory failure with hypoxia (principal); J18.9 Pneumonia, unspecified organism; I50.31 Acute diastolic (congestive) heart failure; J44.0 Chronic obstructive pulmonary disease with (acute) lower respiratory infection; E83.42 Hypomagnesemia; J81.1 Chronic pulmonary edema; E11.21 Type 2 diabetes mellitus with diabetic nephropathy; I13.0 Hypertensive heart and chronic kidney disease with heart failure and stage 1 through stage 4 chronic kidney disease, or unspecified chronic kidney disease; N18.31 Chronic kidney disease, stage 3a; Z20.822 Contact with and (suspected) exposure to COVID-19; N39.0 Urinary tract infection, site not specified; K21.9 Gastro-esophageal reflux disease without esophagitis; J98.11 Atelectasis; E87.6 Hypokalemia; E78.5 Hyperlipidemia, unspecified; F17.210 Nicotine dependence, cigarettes, uncomplicated; Z79.4 Long term (current) use of insulin; Z79.899 Other long term (current) drug therapy; Z82.49 Family history of ischemic heart disease and other diseases of the circulatory system; Z83.3 Family history of diabetes mellitus; Z90.710 Acquired absence of both cervix and uterus; Z80.9 Family history of malignant neoplasm, unspecified
CPT/HCPCS: 36415; 36600; 71045; 71250; 80048; 80053; 80307; 81001; 82805; 82962; 83036; 83605; 83735; 83880; 84443; 84484; 85007; 85025; 85027; 85610; 85730; 87040; 87426; 93005; 93306; 94640; 94660; 96365; 96368; 96375; 97163; 99291; G0378; J0696; J1815; J2405; J2543; J3490

== ENCOUNTER 2020-09-29 10:13 | Emergency (ER) | payer MEDICAID ==
[~2020-09-29] VITALS: Ht 160 cm; Wt 61.2 kg
[~2020-09-29 10:13] MED LIST changes: -CLO01T PO; +CLON0.1T PO; +DOXY-338 PO; +FURO1TAB31 PO; -FURO1TAB33 PO
[2020-09-29 11:16] VITALS: BP 143/83
== END 2020-09-29 12:47 | disposition home or self-care (01) ==
LOC: ER 10:13
DX: S93.402A Sprain of unspecified ligament of left ankle, initial encounter (principal); X50.1XXA Overexertion from prolonged static or awkward postures, initial encounter; Y93.89 Activity, other specified; Y92.89 Other specified places as the place of occurrence of the external cause; Y99.8 Other external cause status
CPT/HCPCS: 73610

== ENCOUNTER 2021-04-03 12:05 | Emergency (ER) | payer MEDICAID ==
[~2021-04-03] VITALS: Ht 160 cm; Wt 64.0 kg
[2021-04-03 12:21] VITALS: BP 192/88
[2021-04-03 13:34] LABS: Basophils # (auto) 0.1 10 ^3/uL (0-0.2); Eosinophils # (auto) 0 10 ^3/uL (0-0.8); Hematocrit 36.7 % (36.0-46.0); Hemoglobin 12.8 g/dL (12.2-16.2); Lymphocytes # (auto) 2.4 10 ^3/uL (0.4-5.4); Neutrophils # (auto) 7.3 10 ^3/uL (1.6-8.6); Red Cell Distribution Width 14.7 % (11.8-14.3)
[2021-04-03 13:36] LABS: Basophils % (auto) 0.6 % (0.0-2.0); Eosinophils % (auto) 0.3 % (0.0-7.0); Lymphocytes % (auto) 21.7 % (10.0-50.0); Mean Corpuscular Hemoglobin 29.7 pg (28.0-32.0); Mean Corpuscular Volume 84.7 fL (80.0-100.0); Monocytes # (auto) 1.1 10 ^3/uL (0-1.3); Monocytes % (auto) 9.7 % (0.0-12.0); Neutrophils % (auto) 67.7 % (37.0-80.0); Nucleated Red Blood Cells % 0.1 %; Red Blood Cells 4.33 10^6/uL (4.0-5.20); White Blood Cell 10.8 10^3/uL (4.4-10.8)
[2021-04-03 13:50] LABS: Albumin 3.6 g/dL (3.4-5.0); Anion Gap 8 (5-15); Blood Urea Nitrogen 21 mg/dL (7-18); Calcium 8.4 mg/dL (8.5-10.1); Carbon Dioxide 24 mmol/L (21-32); Chloride 103 mmol/L (98-107); Glucose 133 mg/dL (74-106); Sodium 135 mmol/L (136-145)
[2021-04-03 13:56] LABS: Alanine Aminotransferase 28 U/L (13-56); Alkaline Phosphatase 117 U/L (45-117); Aspartate Aminotransferase 12 U/L (15-37); BUN/Creatinine Ratio 10.1; Bilirubin, Total 0.2 mg/dL (0.2-1.0); GFR African American 31 mL/min; GFR Non-African American 26 mL/min; Total Protein 7.7 g/dL (6.4-8.2)
[2021-04-03 18:02] LABS: Urine Blood TRACE /uL (Negative); Urine Specific Gravity 1.015 (1.001-1.035); Urine WBC 43 /hpf (0 - 5)
[2021-04-03 18:03] LABS: Urine Bacteria FEW /hpf (None Seen)
== END 2021-04-03 17:22 | disposition home or self-care (01) ==
LOC: ER 12:05
DX: I10 Essential (primary) hypertension (principal); R51.9 Headache, unspecified; F17.210 Nicotine dependence, cigarettes, uncomplicated; E11.9 Type 2 diabetes mellitus without complications; F41.9 Anxiety disorder, unspecified; J44.9 Chronic obstructive pulmonary disease, unspecified; F32.9 Major depressive disorder, single episode, unspecified; K21.9 Gastro-esophageal reflux disease without esophagitis; E78.5 Hyperlipidemia, unspecified; Z79.4 Long term (current) use of insulin; Z79.899 Other long term (current) drug therapy; Z90.710 Acquired absence of both cervix and uterus
CPT/HCPCS: 36415; 70450; 80053; 81001; 84484; 85025; 93005

== ENCOUNTER 2021-04-08 19:02 | Emergency (ER) | payer MEDICAID ==
[~2021-04-08] VITALS: Ht 160 cm; Wt 63.5 kg
[2021-04-08] MEDS ORDERED: cloNIDine HCL 0.1 MG TAB PO ONE (19:45)
[2021-04-08 20:19] LABS: Basophils # (auto) 0.1 10 ^3/uL (0-0.2); Basophils % (auto) 1.3 % (0.0-2.0); Eosinophils # (auto) 0.1 10 ^3/uL (0-0.8); Eosinophils % (auto) 1.3 % (0.0-7.0); Hemoglobin 11.8 g/dL (12.2-16.2); Lymphocytes # (auto) 2.4 10 ^3/uL (0.4-5.4); Lymphocytes % (auto) 22.5 % (10.0-50.0); Mean Corpuscular Hemoglobin 29.3 pg (28.0-32.0); Mean Corpuscular Hgb Conc. 34.8 g/dL (32.0-36.0); Mean Corpuscular Volume 84.1 fL (80.0-100.0); Monocytes % (auto) 9.2 % (0.0-12.0); Neutrophils # (auto) 7.1 10 ^3/uL (1.6-8.6); Neutrophils % (auto) 65.7 % (37.0-80.0); Nucleated Red Blood Cells % 0.1 %; Red Blood Cells 4.04 10^6/uL (4.0-5.20); Red Cell Distribution Width 14.3 % (11.8-14.3); White Blood Cell 10.8 10^3/uL (4.4-10.8)
[2021-04-08 20:45] LABS: Albumin 3.5 g/dL (3.4-5.0); Anion Gap 12 (5-15); BUN/Creatinine Ratio 12.1; Blood Urea Nitrogen 20 mg/dL (7-18); Calcium 8.1 mg/dL (8.5-10.1); Carbon Dioxide 25 mmol/L (21-32); Chloride 99 mmol/L (98-107); GFR African American 40 mL/min; GFR Non-African American 33 mL/min; Glucose 81 mg/dL (74-106); Magnesium 1.1 mg/dL (1.6-2.6); Potassium 3.2 mmol/L (3.5-5.1); Sodium 136 mmol/L (136-145)
[2021-04-08 20:51] LABS: Alanine Aminotransferase 24 U/L (13-56); Alkaline Phosphatase 112 U/L (45-117); Aspartate Aminotransferase 13 U/L (15-37); Bilirubin, Total 0.3 mg/dL (0.2-1.0); Total Protein 7.7 g/dL (6.4-8.2)
[2021-04-08] MEDS ORDERED: HYDROcodone-ACET 7.5/325MG TAB PO ONE (23:00)
[2021-04-09 01:21] VITALS: BP 178/99
== END 2021-04-09 02:06 | disposition home or self-care (01) ==
LOC: EDBD 19:02 → ER 19:02
DX: I12.9 Hypertensive chronic kidney disease with stage 1 through stage 4 chronic kidney disease, or unspecified chronic kidney disease (principal); E11.22 Type 2 diabetes mellitus with diabetic chronic kidney disease; N18.9 Chronic kidney disease, unspecified; R51.9 Headache, unspecified; E78.5 Hyperlipidemia, unspecified; F17.210 Nicotine dependence, cigarettes, uncomplicated; Z90.710 Acquired absence of both cervix and uterus; Z79.899 Other long term (current) drug therapy
CPT/HCPCS: 36415; 71045; 80053; 83735; 83880; 84484; 85025; 93005

== ENCOUNTER 2021-10-14 10:04 | Emergency (ER) | payer MEDICAID ==
[~2021-10-14] VITALS: Ht 160 cm; Wt 66.2 kg
[2021-10-14 11:19] LABS: Basophils # (auto) 0.1 10 ^3/uL (0-0.2); Eosinophils # (auto) 0.1 10 ^3/uL (0-0.8); Hemoglobin 10.5 g/dL (12.2-16.2); Monocytes # (auto) 0.6 10 ^3/uL (0-1.3); Neutrophils # (auto) 5.2 10 ^3/uL (1.6-8.6)
[2021-10-14 11:22] LABS: Basophils % (auto) 0.8 % (0.0-2.0); Eosinophils % (auto) 1.2 % (0.0-7.0); Hematocrit 31.3 % (36.0-46.0); Lymphocytes # (auto) 1.6 10 ^3/uL (0.4-5.4); Lymphocytes % (auto) 21.8 % (10.0-50.0); Mean Corpuscular Hemoglobin 28.1 pg (28.0-32.0); Mean Corpuscular Hgb Conc. 33.5 g/dL (32.0-36.0); Mean Corpuscular Volume 83.9 fL (80.0-100.0); Monocytes % (auto) 7.8 % (0.0-12.0); Neutrophils % (auto) 68.4 % (37.0-80.0); Red Blood Cells 3.74 10^6/uL (4.0-5.20); Red Cell Distribution Width 13.3 % (11.8-14.3); White Blood Cell 7.5 10^3/uL (4.4-10.8)
[2021-10-14 11:34] LABS: Albumin 3.4 g/dL (3.4-5.0); Calcium 8.3 mg/dL (8.5-10.1); Potassium 3.6 mmol/L (3.5-5.1)
[2021-10-14 11:37] LABS: BUN/Creatinine Ratio 8.7
[2021-10-14 11:46] LABS: Bilirubin, Total 0.1 mg/dL (0.2-1.0); Total Protein 6.8 g/dL (6.4-8.2)
[2021-10-14] MEDS ORDERED: SODIUM CHLORIDE 0.9% 1,000 ML IV ONE (14:00)
[2021-10-14] MEDS ORDERED: SODIUM CHLORIDE 0.9% 500 ML IVB ONE (14:00)
[2021-10-14 14:11] LABS: Magnesium 2.2 mg/dL (1.6-2.6)
[2021-10-14] MEDS ORDERED: PEGSOL11 OR (15:34)
[2021-10-14 16:00] VITALS: BP 161/69
== END 2021-10-14 16:02 | disposition home or self-care (01) ==
LOC: ER 10:04
DX: K59.01 Slow transit constipation (principal); E11.21 Type 2 diabetes mellitus with diabetic nephropathy; D35.00 Benign neoplasm of unspecified adrenal gland; K42.9 Umbilical hernia without obstruction or gangrene; D53.9 Nutritional anemia, unspecified; I12.9 Hypertensive chronic kidney disease with stage 1 through stage 4 chronic kidney disease, or unspecified chronic kidney disease; E11.22 Type 2 diabetes mellitus with diabetic chronic kidney disease; N18.4 Chronic kidney disease, stage 4 (severe); J44.9 Chronic obstructive pulmonary disease, unspecified; K21.9 Gastro-esophageal reflux disease without esophagitis; E78.5 Hyperlipidemia, unspecified; F17.210 Nicotine dependence, cigarettes, uncomplicated; Z86.73 Personal history of transient ischemic attack (TIA), and cerebral infarction without residual deficits; Z90.710 Acquired absence of both cervix and uterus; Z79.4 Long term (current) use of insulin; Z79.899 Other long term (current) drug therapy
CPT/HCPCS: 36415; 71046; 74176; 80053; 83690; 83735; 85025; 93005; 99285; J7030

== ENCOUNTER 2022-11-04 11:22 | Inpatient (IN) | payer OTHER, MEDICAID ==
[~2022-11-04] VITALS: Ht 160 cm; Wt 70.1 kg
[~2022-11-04 11:22] MED LIST changes: +ALPR0.5T PO; +HYDR25TA87 PO; +LISI20TA28 PO; +NIFE1TAB31 PO; +OME20GT PO; +PEGSOL11 OR; +SPIR25TA PO
[2022-11-04 11:44] LABS: Basophils # (auto) 0.1 10 ^3/uL (0-0.2); Basophils % (auto) 0.6 % (0.0-2.0); Eosinophils # (auto) 0.1 10 ^3/uL (0-0.8); Eosinophils % (auto) 0.9 % (0.0-7.0); Hematocrit 35.5 % (36.0-46.0); Lymphocytes % (auto) 22.8 % (10.0-50.0); Mean Corpuscular Hemoglobin 27.8 pg (28.0-32.0); Mean Corpuscular Hgb Conc. 33.9 g/dL (32.0-36.0); Mean Corpuscular Volume 82.1 fL (80.0-100.0); Monocytes # (auto) 0.6 10 ^3/uL (0-1.3); Monocytes % (auto) 6.4 % (0.0-12.0); Neutrophils # (auto) 6.1 10 ^3/uL (1.6-8.6); Neutrophils % (auto) 69.3 % (37.0-80.0); Nucleated Red Blood Cells % 0.2 %; Red Blood Cells 4.32 10^6/uL (4.0-5.20); Red Cell Distribution Width 16.7 % (11.8-14.3); White Blood Cell 8.8 10^3/uL (4.4-10.8)
[2022-11-04 12:00] LABS: INR 0.92 (0.9-1.15); Partial Thromboplastin Time 31.3 sec (24.6-33.4)
[2022-11-04 12:41] LABS: Albumin 4.2 g/dL (3.4-5.0); Calcium 9.2 mg/dL (8.5-10.1); Magnesium 2.7 mg/dL (1.6-2.6); Potassium 4.3 mmol/L (3.5-5.1)
[2022-11-04 12:44] LABS: Bilirubin, Total 0.2 mg/dL (0.2-1.0); Total Protein 7.1 g/dL (6.4-8.2)
[2022-11-04 13:07] LABS: Urine Bacteria FEW /hpf (None Seen); Urine Blood Negative /uL (Negative); Urine Specific Gravity 1.006 (1.001-1.035); Urine WBC 16 /hpf (0 - 5)
[2022-11-04] MEDS ORDERED: ONDANSETRON HCL 4 MG/2 ML VIAL IV PRN (15:45)
[2022-11-04] MEDS ORDERED: DOCUSATE SOD 100 MG CAP PO PRN (15:45)
[2022-11-04] MEDS ORDERED: MORPHINE SULFATE INJ 2 MG/ml SYRG IV PRN (15:45)
[2022-11-04] MEDS ORDERED: NITROGLYCERIN 0.4 MG SL TAB SL PRN (15:45)
[2022-11-04] MEDS ORDERED: ACETAMINOPHEN 325 MG TAB PO PRN (15:45)
[2022-11-04] MEDS ORDERED: HYDROcodone-ACET 5/325MG TAB PO PRN (15:45)
[2022-11-04] MEDS ORDERED: FURO1TAB31 PO (15:54)
[2022-11-04] MEDS: MORPHINE SULFATE INJ 2 MG/ml SYRG IV PRN (20:43)
[2022-11-04] MEDS ORDERED: LORazepam 0.5 MG TAB PO PRN (22:00)
[2022-11-04] MEDS: SODIUM CHLOR 0.9% PF (SALINE LOCK) 10ML VIAL/SYR IV SCH (22:15)
[2022-11-04] MEDS: FUROSEMIDE 40 MG TAB PO SCH (22:20)
[2022-11-04 22:59] LABS: Cholesterol 111 mg/dL (< 200); HDL Cholesterol 53 mg/dL (40-59); LDL Cholesterol 42 mg/dL (< 100); Triglycerides 205 mg/dL (< 150)
[2022-11-05] MEDS: hydrALAZINE HCL 20 MG/ML VL IV PRN ×2 (02:12→07:11)
[2022-11-05 05:49] LABS: Basophils # (auto) 0 10 ^3/uL (0-0.2); Basophils % (auto) 0.5 % (0.0-2.0); Eosinophils # (auto) 0.1 10 ^3/uL (0-0.8); Eosinophils % (auto) 2.1 % (0.0-7.0); Hematocrit 35.4 % (36.0-46.0); Hemoglobin 12.2 g/dL (12.2-16.2); Lymphocytes # (auto) 2.2 10 ^3/uL (0.4-5.4); Lymphocytes % (auto) 31.5 % (10.0-50.0); Mean Corpuscular Hemoglobin 28.2 pg (28.0-32.0); Mean Corpuscular Hgb Conc. 34.4 g/dL (32.0-36.0); Mean Corpuscular Volume 81.9 fL (80.0-100.0); Monocytes # (auto) 0.8 10 ^3/uL (0-1.3); Monocytes % (auto) 11.1 % (0.0-12.0); Neutrophils # (auto) 3.8 10 ^3/uL (1.6-8.6); Neutrophils % (auto) 54.8 % (37.0-80.0); Nucleated Red Blood Cells % 0.2 %; Red Blood Cells 4.32 10^6/uL (4.0-5.20); White Blood Cell 6.9 10^3/uL (4.4-10.8)
[2022-11-05] MEDS ORDERED: diphenhdrAMINE HCL 50 MG/1 ML VL IV ONE (06:00)
[2022-11-05 06:01] LABS: Albumin 3.8 g/dL (3.4-5.0); Calcium 8.7 mg/dL (8.5-10.1)
[2022-11-05 06:03] LABS: BUN/Creatinine Ratio 9.7 (10.0-20.0)
[2022-11-05] MEDS: SODIUM CHLOR 0.9% PF (SALINE LOCK) 10ML VIAL/SYR IV SCH ×3 (06:10→21:15)
[2022-11-05 06:16] LABS: Bilirubin, Total 0.2 mg/dL (0.2-1.0); Total Protein 7.4 g/dL (6.4-8.2)
[2022-11-05] MEDS: clonazePAM 0.5 MG TAB PO SCH (09:42)
[2022-11-05] MEDS: FUROSEMIDE 40 MG TAB PO SCH ×2 (09:42→21:18)
[2022-11-05] MEDS: GABAPENTIN 300 MG CAP PO SCH (09:42)
[2022-11-05] MEDS: amLODIPine BESYLATE 5 MG TAB PO SCH (09:43)
[2022-11-05] MEDS: ATENOLOL 50 MG TAB PO SCH (09:43)
[2022-11-05] MEDS: MORPHINE SULFATE INJ 2 MG/ml SYRG IV PRN ×2 (09:44→16:15)
[2022-11-05] MEDS ORDERED: ALPRAZolam 0.5 MG TAB PO PRN (12:15)
[2022-11-05] MEDS ORDERED: DEXTROSE (50%) 50ML SYRG IV PRN (12:30)
[2022-11-05] MEDS ORDERED: cefTRIAXone 1GM/50ML D5W 50 ML IV ONE (12:45)
[2022-11-05] MEDS: cloNIDine HCL 0.1 MG TAB PO SCH ×2 (15:06→21:18)
[2022-11-05 15:21] VITALS: BP 168/73
[2022-11-05 16:05] VITALS: BP 168/73
[2022-11-05] MEDS: ACCU-CHEK COMFORT CURVE STRIP VI SCH ×2 (16:17→21:26)
[2022-11-05] MEDS: InsuLIN REG 1unit/0.01ml Soln (100units/ml) SC SCH ×2 (16:22→21:24)
[2022-11-05 17:00] VITALS: BP 151/73
[2022-11-05 20:00] VITALS: BP 145/63
[2022-11-05] MEDS: CARISOPRODOL 350 MG TAB PO SCH (21:15)
[2022-11-05] MEDS ORDERED: CLON0.3T PO (21:22)
[2022-11-05] MEDS ORDERED: ZOLP5TAB5 PO (21:22)
[2022-11-05] MEDS: INSULIN LANTUS (GLARGINE) 1 /0.01ml (100units/ml) SC SCH (21:25)
[2022-11-05 22:00] VITALS: BP 163/61
[2022-11-06 05:00] VITALS: BP 161/71
[2022-11-06] MEDS: cloNIDine HCL 0.1 MG TAB PO SCH ×2 (06:17→14:12)
[2022-11-06] MEDS: SODIUM CHLOR 0.9% PF (SALINE LOCK) 10ML VIAL/SYR IV SCH ×2 (06:19→14:11)
[2022-11-06] MEDS: InsuLIN REG 1unit/0.01ml Soln (100units/ml) SC SCH ×2 (06:21→11:30)
[2022-11-06] MEDS: ACCU-CHEK COMFORT CURVE STRIP VI SCH ×2 (06:22→12:39)
[2022-11-06] MEDS: INSULIN LANTUS (GLARGINE) 1 /0.01ml (100units/ml) SC SCH (06:23)
[2022-11-06 07:30] VITALS: BP 155/62
[2022-11-06 09:00] VITALS: BP 151/72
[2022-11-06] MEDS ORDERED: cefTRIAXone 1GM/50ML D5W 50 ML IV SCH (09:00)
[2022-11-06] MEDS: clonazePAM 0.5 MG TAB PO SCH (09:14)
[2022-11-06] MEDS: GABAPENTIN 300 MG CAP PO SCH (09:15)
[2022-11-06] MEDS: CARISOPRODOL 350 MG TAB PO SCH (09:16)
[2022-11-06] MEDS: ATENOLOL 50 MG TAB PO SCH (09:18)
[2022-11-06] MEDS: amLODIPine BESYLATE 5 MG TAB PO SCH (09:20)
[2022-11-06] MEDS: FUROSEMIDE 40 MG TAB PO SCH (09:21)
[2022-11-06] MEDS ORDERED: NIFEdipine ER 30 MG TAB PO SCH (10:00)
[2022-11-06] MEDS ORDERED: CIPR500T4 PO (11:38)
[2022-11-06 13:00] VITALS: BP 173/75
[2022-11-06 13:48] VITALS: BP 138/73
[2022-11-06] MEDS: hydrALAZINE HCL 20 MG/ML VL IV PRN (14:17)
== END 2022-11-06 15:31 | disposition home or self-care (01) | DRG 69 ==
LOC: ER 11:22 → TELE 15:54 → WEST WING 11-05 13:14 → TELE-WESTW 11-05 20:14
PROVIDERS: ADMIT Nurse Practitioner Family; ATTEND Hospitalist
PROC: 4A00X4Z Measurement of Central Nervous Electrical Activity, External Approach (ICD-10-PCS; principal; 2022-11-05)
DX: G45.9 Transient cerebral ischemic attack, unspecified (principal); G92.9 Unspecified toxic encephalopathy; N18.4 Chronic kidney disease, stage 4 (severe); N39.0 Urinary tract infection, site not specified; I12.9 Hypertensive chronic kidney disease with stage 1 through stage 4 chronic kidney disease, or unspecified chronic kidney disease; E78.5 Hyperlipidemia, unspecified; E11.22 Type 2 diabetes mellitus with diabetic chronic kidney disease; K21.9 Gastro-esophageal reflux disease without esophagitis; J44.9 Chronic obstructive pulmonary disease, unspecified; F41.9 Anxiety disorder, unspecified; F17.210 Nicotine dependence, cigarettes, uncomplicated; G89.4 Chronic pain syndrome; F31.9 Bipolar disorder, unspecified; Z86.73 Personal history of transient ischemic attack (TIA), and cerebral infarction without residual deficits; Z90.710 Acquired absence of both cervix and uterus; Z82.49 Family history of ischemic heart disease and other diseases of the circulatory system; Z83.3 Family history of diabetes mellitus; Z80.1 Family history of malignant neoplasm of trachea, bronchus and lung; Z82.3 Family history of stroke; Z79.82 Long term (current) use of aspirin
CPT/HCPCS: 36415; 70450; 70551; 71045; 80053; 80061; 81001; 82962; 83735; 83880; 84484; 85025; 85610; 85730; 93005; 95819; 96374; 96375; 97163; G0378; J0696; J1815; J2405

== ENCOUNTER 2023-03-18 20:09 | Inpatient (IN) | payer OTHER, MEDICAID ==
[~2023-03-18] VITALS: Ht 165.1 cm; Wt 70.3 kg
[~2023-03-18 20:09] MED LIST changes: -ALPR0.5T7 PO; -AMLO-496 PO; +AMLO1TAB23 PO; -CARI350T22 PO; +CIPR500T4 PO; -CLON0.1T PO; +CLON0.3T PO; -DOXY-338 PO; +GABA-1250 PO; -GABA300C10 PO; -LISI20TA28 PO; -LISI40TA11 PO; -LORA-516 PO; -METF-371 PO; -OME20GT PO; -PEGSOL11 OR; -SPIR25TA PO; +ZOLP5TAB5 PO
[2023-03-18] MEDS ORDERED: ATENOLOL 25 MG TAB PO ONE (20:30)
[2023-03-18] MEDS ORDERED: ACETAMINOPHEN 325 MG TAB PO ONE (20:30)
[2023-03-18 20:54] LABS: Urine Bacteria FEW /hpf (None Seen); Urine Blood Negative /uL (Negative); Urine Clarity Clear (Clear); Urine Color Colorless (Yellow); Urine Protein, UAD TRACE (Negative); Urine Specific Gravity 1.004 (1.001-1.035); Urine Urobilinogen Normal (Negative); Urine WBC <1 /hpf (0 - 5); Urine pH 6.5 (5.0-8.0)
[2023-03-18 20:55] VITALS: PULSE 100; RESP 21; O2SAT 99
[2023-03-18 20:57] LABS: Basophils # (auto) 0 10 ^3/uL (0-0.2); Basophils % (auto) 0.4 % (0.0-2.0); Eosinophils # (auto) 0.1 10 ^3/uL (0-0.8); Eosinophils % (auto) 1.3 % (0.0-7.0); Hematocrit 35.1 % (36.0-46.0); Hemoglobin 11.8 g/dL (12.2-16.2); Lymphocytes # (auto) 1.7 10 ^3/uL (0.4-5.4); Lymphocytes % (auto) 16.9 % (10.0-50.0); Mean Corpuscular Hemoglobin 28.9 pg (28.0-32.0); Mean Corpuscular Hgb Conc. 33.7 g/dL (32.0-36.0); Monocytes # (auto) 0.9 10 ^3/uL (0-1.3); Monocytes % (auto) 9.1 % (0.0-12.0); Neutrophils # (auto) 7.5 10 ^3/uL (1.6-8.6); Neutrophils % (auto) 72.3 % (37.0-80.0); Red Blood Cells 4.09 10^6/uL (4.0-5.20); White Blood Cell 10.3 10^3/uL (4.4-10.8)
[2023-03-18 21:10] LABS: INR 0.95 (0.9-1.15); Partial Thromboplastin Time 33.3 SEC (24.5-34.5)
[2023-03-18 21:12] LABS: Alanine Aminotransferase 14 U/L (7-40); Alkaline Phosphatase 91 U/L (46-116); Anion Gap 10 (5-15); BUN/Creatinine Ratio 10.5 (10.0-20.0); Blood Urea Nitrogen 28 mg/dL (9-23); Carbon Dioxide 22 mmol/L (20-30); Chloride 103 mmol/L (98-107); Glucose 130 mg/dL (74-106); Magnesium 2.4 mg/dL (1.6-2.6); Potassium 3.5 mmol/L (3.5-5.1); Sodium 135 mmol/L (136-145)
[2023-03-18 21:13] LABS: Albumin 4.6 g/dL (3.2-4.8); Aspartate Aminotransferase 10 U/L (13-40); Bilirubin, Total < 0.2 mg/dL (0.2-1.0); Total Protein 7.6 g/dL (5.7-8.2)
[2023-03-18] MEDS ORDERED: hydrALAZINE HCL 20 MG/ML VL IV ONE (21:45)
[2023-03-19] MEDS ORDERED: ONDANSETRON HCL 4 MG/2 ML VIAL IV PRN
[2023-03-19] MEDS ORDERED: ACETAMINOPHEN 325 MG TAB PO PRN
[2023-03-19] MEDS ORDERED: MORPHINE SULFATE INJ 2 MG/ml SYRG IV PRN
[2023-03-19] MEDS ORDERED: MORPHINE SULFATE INJ 2 MG/ml SYRG IV ONE (00:15)
[2023-03-19] MEDS ORDERED: ONDANSETRON HCL 4 MG/2 ML VIAL IV ONE (00:15)
[2023-03-19] MEDS ORDERED: DEXTROSE (50%) 50ML SYRG IV PRN (00:30)
[2023-03-19] MEDS: cloNIDine HCL 0.1 MG TAB PO SCH ×4 (00:48→21:46)
[2023-03-19] MEDS ORDERED: HEPARIN DRIP/D5W 100UNITS/ML 250 ML IV SCH ×2 (01:00→09:00)
[2023-03-19] MEDS ORDERED: HEPARIN SODIUM (PORCINE) 5000 UNITS/ML 1ML VIAL IV ONE (01:00)
[2023-03-19 01:44] LABS: INR 0.94 (0.9-1.15); Partial Thromboplastin Time 32.1 SEC (24.5-34.5); Prothrombin Time 9.9 sec (9.3-11.8)
[2023-03-19 01:45] LABS: Basophils # (auto) 0.1 10 ^3/uL (0-0.2); Basophils % (auto) 0.8 % (0.0-2.0); Eosinophils # (auto) 0.2 10 ^3/uL (0-0.8); Eosinophils % (auto) 1.8 % (0.0-7.0); Hematocrit 36.6 % (36.0-46.0); Hemoglobin 11.9 g/dL (12.2-16.2); Lymphocytes # (auto) 1.6 10 ^3/uL (0.4-5.4); Lymphocytes % (auto) 14.6 % (10.0-50.0); Mean Corpuscular Hemoglobin 28.3 pg (28.0-32.0); Mean Corpuscular Hgb Conc. 32.6 g/dL (32.0-36.0); Mean Corpuscular Volume 86.7 fL (80.0-100.0); Monocytes # (auto) 1.3 10 ^3/uL (0-1.3); Monocytes % (auto) 11.4 % (0.0-12.0); Neutrophils # (auto) 7.9 10 ^3/uL (1.6-8.6); Neutrophils % (auto) 71.4 % (37.0-80.0); Red Blood Cells 4.22 10^6/uL (4.0-5.20); Red Cell Distribution Width 15.5 % (11.8-14.3); White Blood Cell 11.1 10^3/uL (4.4-10.8)
[2023-03-19] MEDS: HYDROcodone-ACET 5/325MG TAB PO PRN ×3 (03:55→21:44)
[2023-03-19 04:25] LABS: LDL Cholesterol 64 mg/dL (< 100)
[2023-03-19 04:26] LABS: Cholesterol 169 mg/dL (< 200); HDL Cholesterol 46 mg/dL (40-59)
[2023-03-19] MEDS: ASPirin 81 mg TAB PO SCH (04:27)
[2023-03-19] MEDS: hydrALAZINE HCL 20 MG/ML VL IV PRN (04:28)
[2023-03-19] MEDS ORDERED: ASPirin-EC 81 mg tab PO ONE (05:30)
[2023-03-19] MEDS: hydrALAZINE HCL 25 MG TAB PO SCH ×3 (06:29→21:45)
[2023-03-19] MEDS: InsuLIN REG 1unit/0.01ml Soln (100units/ml) SC SCH ×4 (06:31→22:05)
[2023-03-19] MEDS: ACCU-CHEK COMFORT CURVE STRIP VI SCH ×4 (06:31→21:51)
[2023-03-19 07:30] VITALS: PULSE 65; RESP 14; O2SAT 96
[2023-03-19 07:45] LABS: INR 0.98 (0.9-1.15); Partial Thromboplastin Time 45.4 SEC (24.5-34.5); Prothrombin Time 10.3 sec (9.3-11.8)
[2023-03-19] MEDS: FLUoxetine HCL 20 MG CAP PO SCH (10:00)
[2023-03-19] MEDS: ATENOLOL 25 MG TAB PO SCH (10:11)
[2023-03-19 15:16] LABS: Chloride 105 mmol/L (98-107); Potassium 4.2 mmol/L (3.5-5.1)
[2023-03-19 15:17] LABS: Carbon Dioxide 22 mmol/L (20-30)
[2023-03-19 15:18] LABS: Calcium 8.7 mg/dL (8.5-10.1)
[2023-03-19 15:23] LABS: Glucose 141 mg/dL (74-106)
[2023-03-19 15:28] LABS: Partial Thromboplastin Time 41.9 SEC (24.5-34.5); Prothrombin Time 10.5 sec (9.3-11.8)
[2023-03-19 15:42] VITALS: BP 142/57; PULSE 71; PULSE 72; RESP 18; TEMP 99.9; O2SAT 96; O2SAT 98
[2023-03-19] MEDS: HEPARIN DRIP/D5W 100UNITS/ML 250 ML IV SCH (15:45)
[2023-03-19 15:50] LABS: Triglycerides 190 mg/dL (< 150)
[2023-03-19 16:02] LABS: BUN/Creatinine Ratio 10.2 (10.0-20.0); Blood Urea Nitrogen 24 mg/dL (9-23)
[2023-03-19 16:03] LABS: Anion Gap 6 (5-15); Sodium 133 mmol/L (136-145)
[2023-03-19 17:00] VITALS: BP 142/57; PULSE 71; RESP 18; TEMP 99.9; O2SAT 98
[2023-03-19 20:00] VITALS: BP 149/59; PULSE 65; PULSE 67; RESP 16; TEMP 98.6; O2SAT 96
[2023-03-19 21:55] VITALS: BP 149/59; PULSE 65; RESP 16; TEMP 98.6; O2SAT 96
[2023-03-19] MEDS ORDERED: ATORVASTATIN 20 MG TAB PO SCH (22:00)
[2023-03-19 23:10] LABS: Prothrombin Time 10.5 sec (9.3-11.8)
[2023-03-20] MEDS: HEPARIN DRIP/D5W 100UNITS/ML 250 ML IV SCH (02:57)
[2023-03-20 05:00] VITALS: BP 148/54; PULSE 65; RESP 16; TEMP 98.9; O2SAT 97
[2023-03-20] MEDS: cloNIDine HCL 0.1 MG TAB PO SCH ×2 (05:51→13:37)
[2023-03-20] MEDS: HYDROcodone-ACET 5/325MG TAB PO PRN (05:58)
[2023-03-20] MEDS: hydrALAZINE HCL 25 MG TAB PO SCH (06:00)
[2023-03-20 06:07] LABS: Anion Gap 7 (5-15); Carbon Dioxide 22 mmol/L (20-30); Chloride 105 mmol/L (98-107); Potassium 4.2 mmol/L (3.5-5.1); Sodium 134 mmol/L (136-145)
[2023-03-20 06:08] LABS: Calcium 8.1 mg/dL (8.7-10.4)
[2023-03-20 06:13] LABS: BUN/Creatinine Ratio 11.8 (10.0-20.0); Blood Urea Nitrogen 33 mg/dL (9-23); Glucose 122 mg/dL (74-106)
[2023-03-20] MEDS: InsuLIN REG 1unit/0.01ml Soln (100units/ml) SC SCH ×3 (06:55→17:00)
[2023-03-20] MEDS: ACCU-CHEK COMFORT CURVE STRIP VI SCH ×3 (07:03→17:00)
[2023-03-20 07:30] VITALS: PULSE 61
[2023-03-20 07:36] LABS: INR 0.99 (0.9-1.15); Partial Thromboplastin Time 62.1 SEC (24.5-34.5); Prothrombin Time 10.4 sec (9.3-11.8)
[2023-03-20 09:00] VITALS: BP 157/77; PULSE 63; RESP 16; TEMP 98.1; O2SAT 96
[2023-03-20] MEDS: FLUoxetine HCL 20 MG CAP PO SCH (09:27)
[2023-03-20] MEDS: ATENOLOL 25 MG TAB PO SCH (09:27)
[2023-03-20] MEDS: ASPirin 81 mg TAB PO SCH (09:27)
[2023-03-20] MEDS ORDERED: NIFEdipine ER 30 MG TAB PO SCH (11:30)
[2023-03-20 12:42] LABS: INR 0.95 (0.9-1.15); Partial Thromboplastin Time 68.9 SEC (24.5-34.5)
[2023-03-20 13:07] VITALS: BP 144/59; PULSE 60; RESP 18; TEMP 98.1; O2SAT 98
[2023-03-20] MEDS ORDERED: hydrALAZINE HCL 25 MG TAB PO SCH (14:00)
[2023-03-20 15:31] VITALS: PULSE 65; TEMP 36.7
[2023-03-20] MEDS: hydrALAZINE HCL 20 MG/ML VL IV PRN (16:35)
== END 2023-03-20 18:05 | disposition home health service (06) | DRG 281 ==
LOC: EDBD 20:09 → ER 20:09 → TELE 03-19 00:24 → TELE-WESTW 03-19 15:29
PROVIDERS: ADMIT Nurse Practitioner Family; ATTEND Nurse Practitioner Family
DX: I16.1 Hypertensive emergency (principal); I21.A1 Myocardial infarction type 2; I69.354 Hemiplegia and hemiparesis following cerebral infarction affecting left non-dominant side; N17.9 Acute kidney failure, unspecified; N18.4 Chronic kidney disease, stage 4 (severe); I12.9 Hypertensive chronic kidney disease with stage 1 through stage 4 chronic kidney disease, or unspecified chronic kidney disease; J44.9 Chronic obstructive pulmonary disease, unspecified; E11.22 Type 2 diabetes mellitus with diabetic chronic kidney disease; F17.210 Nicotine dependence, cigarettes, uncomplicated; F32.A Depression, unspecified; F41.9 Anxiety disorder, unspecified; K21.9 Gastro-esophageal reflux disease without esophagitis; R00.0 Tachycardia, unspecified; I27.20 Pulmonary hypertension, unspecified; I34.0 Nonrheumatic mitral (valve) insufficiency; Z80.1 Family history of malignant neoplasm of trachea, bronchus and lung; Z82.49 Family history of ischemic heart disease and other diseases of the circulatory system; Z90.710 Acquired absence of both cervix and uterus
CPT/HCPCS: 36415; 70450; 71045; 76775; 80048; 80053; 80061; 81001; 82962; 83036; 83735; 83880; 84443; 84484; 85025; 85610; 85730; 93005; 93306; 99291; G0378; J1815; J2405

== ENCOUNTER 2023-10-07 11:53 | Inpatient (IN) | payer OTHER, MEDICAID ==
[~2023-10-07] VITALS: Ht 160 cm; Wt 63.4 kg
[2023-10-07 13:30] LABS: Basophils # (auto) 0 10 ^3/uL (0-0.2); Eosinophils # (auto) 0 10 ^3/uL (0-0.8); Monocytes # (auto) 0.4 10 ^3/uL (0-1.3)
[2023-10-07 13:33] LABS: Basophils % (auto) 0.3 % (0.0-2.0); Hematocrit 36.8 % (36.0-46.0); Hemoglobin 12.1 g/dL (12.2-16.2); Lymphocytes # (auto) 1.1 10 ^3/uL (0.4-5.4); Mean Corpuscular Hemoglobin 28.6 pg (28.0-32.0); Mean Corpuscular Hgb Conc. 32.8 g/dL (32.0-36.0); Mean Corpuscular Volume 87.2 fL (80.0-100.0); Monocytes % (auto) 3.4 % (0.0-12.0); Neutrophils # (auto) 10.8 10 ^3/uL (1.6-8.6); Neutrophils % (auto) 87.3 % (37.0-80.0); Red Blood Cells 4.22 10^6/uL (4.0-5.20); Red Cell Distribution Width 14.3 % (11.8-14.3); White Blood Cell 12.4 10^3/uL (4.4-10.8)
[2023-10-07 13:46] LABS: Alanine Aminotransferase 11 U/L (7-40); Albumin 4.9 g/dL (3.2-4.8); Alkaline Phosphatase 66 U/L (46-116); Anion Gap 18 (5-15); Aspartate Aminotransferase 12 U/L (13-40); BUN/Creatinine Ratio 13.8 (10.0-20.0); Blood Urea Nitrogen 41 mg/dL (9-23); Calcium 9.8 mg/dL (8.5-10.1); Carbon Dioxide 18 mmol/L (20-30); Chloride 103 mmol/L (98-107); Glucose 171 mg/dL (74-106); Sodium 139 mmol/L (136-145)
[2023-10-07 13:47] LABS: Bilirubin, Total < 0.2 mg/dL (0.2-1.0); Total Protein 7.5 g/dL (5.7-8.2)
[2023-10-07] MEDS: InsuLIN REG 1unit/0.01ml Soln (100units/ml) IV ONE (15:00)
[2023-10-07] MEDS ORDERED: SODIUM CHLORIDE 0.9% 1,000 ML IV ONE (15:00)
[2023-10-07 16:03] LABS: Base Excess -2.8 mmol/L (-2.0-2.0)
[2023-10-07] MEDS ORDERED: DEXTROSE (50%) 50ML SYRG IV PRN (16:15)
[2023-10-07] MEDS ORDERED: SODIUM CHLORIDE 0.9% 1,000 ML IV SCH (16:15)
[2023-10-07] MEDS ORDERED: NITROGLYCERIN 0.4 MG SL TAB SL PRN (16:15)
[2023-10-07 16:17] LABS: Lactic Acid w/Reflex 2.9 mmol/L (0.4-2.0)
[2023-10-07] MEDS: ATENOLOL 25 MG TAB PO ONE (16:30)
[2023-10-07] MEDS: InsuLIN REG 1unit/0.01ml Soln (100units/ml) SC SCH ×2 (17:00→22:00)
[2023-10-07] MEDS: ACCU-CHEK COMFORT CURVE STRIP VI SCH (17:00)
[2023-10-07 18:48] LABS: Magnesium 2.4 mg/dL (1.6-2.6)
[2023-10-07 18:50] LABS: Phosphorus 2.9 mg/dL (2.4-5.1)
[2023-10-07] MEDS: MORPHINE SULFATE INJ 2 MG/ml SYRG IV PRN ×2 (18:58→22:40)
[2023-10-07 19:16] LABS: Urine Bacteria None Seen /hpf (None Seen)
[2023-10-07 19:30] LABS: Urine Blood Negative /uL (Negative); Urine Clarity Turbid (Clear); Urine Color Light-Yellow (Yellow); Urine Protein, UAD 1+ (Negative); Urine Urobilinogen Normal (Negative); Urine WBC 9 /hpf (0 - 5)
[2023-10-07 19:39] LABS: Protein, Urine 50.6 mg/dL (0.0-11.9)
[2023-10-07 19:42] LABS: Creatinine, Urine 52.74 mg/dL (30.0-125.0); Urine Protein/Creatinine Ratio 0.96
[2023-10-07] MEDS: NIFEdipine ER 30 MG TAB PO SCH (20:03)
[2023-10-07] MEDS: PIPERACILLIN-TAZOB 3.375GM 100 ML IV ONE (20:08)
[2023-10-07] MEDS: ONDANSETRON HCL 4 MG/2 ML VIAL IV PRN (20:09)
[2023-10-07 21:56] LABS: Lactic Acid w/Reflex 2.3 mmol/L (0.4-2.0)
[2023-10-07] MEDS: INSULIN LANTUS (GLARGINE) 1 /0.01ml (100units/ml) SC SCH (22:00)
[2023-10-07] MEDS: PIPERACILLIN-TAZOB 3.375GM 100 ML IV SCH (22:50)
[2023-10-07] MEDS: SODIUM CHLORIDE 0.9% 1,000 ML IV ONE (22:50)
[2023-10-07] MEDS: PANTOPRAZOLE 40 MG/10 ML VIAL INJ IV SCH (22:50)
[2023-10-07] MEDS: ATORVASTATIN 20 MG TAB PO SCH (23:02)
[2023-10-07] MEDS: hydrALAZINE HCL 25 MG TAB PO SCH (23:03)
[2023-10-07 23:38] VITALS: BP 186/88; PULSE 86; RESP 24; TEMP 97.5; O2SAT 99
[2023-10-07] MEDS: SODIUM BICARB 8.4% 50Meq/50ml SYR Vial IV ONE (23:55)
[2023-10-08] VITALS (8 sets, daily range): BP systolic 157–200; BP diastolic 58–88; PULSE 77–131; RESP 16–32; TEMP 97.5–98.1; O2SAT 95–100
[2023-10-08] MEDS: SODIUM BICARB 50mEq/50ml Vial 50 ML in SOD CHL 0.45% 1,000 ML IV SCH (00:24)
[2023-10-08] MEDS: hydrALAZINE HCL 20 MG/ML VL IV PRN (01:43)
[2023-10-08 06:15] LABS: Basophils # (auto) 0 10 ^3/uL (0-0.2); Basophils % (auto) 0.4 % (0.0-2.0); Eosinophils # (auto) 0 10 ^3/uL (0-0.8); Eosinophils % (auto) 0.2 % (0.0-7.0); Hematocrit 32.9 % (36.0-46.0); Hemoglobin 10.9 g/dL (12.2-16.2); Lymphocytes # (auto) 1.2 10 ^3/uL (0.4-5.4); Lymphocytes % (auto) 10.1 % (10.0-50.0); Mean Corpuscular Hemoglobin 28.6 pg (28.0-32.0); Mean Corpuscular Volume 86.7 fL (80.0-100.0); Monocytes # (auto) 1.2 10 ^3/uL (0-1.3); Monocytes % (auto) 10.5 % (0.0-12.0); Neutrophils # (auto) 9.3 10 ^3/uL (1.6-8.6); Neutrophils % (auto) 78.8 % (37.0-80.0); Nucleated Red Blood Cells % 0.1 %; Red Cell Distribution Width 14.4 % (11.8-14.3); White Blood Cell 11.8 10^3/uL (4.4-10.8)
[2023-10-08 06:56] LABS: Alkaline Phosphatase 53 U/L (46-116)
[2023-10-08 06:57] LABS: Alanine Aminotransferase < 9 U/L (7-40); Albumin 4.7 g/dL (3.2-4.8); Anion Gap 11 (5-15); Aspartate Aminotransferase 17 U/L (13-40); BUN/Creatinine Ratio 10.9 (10.0-20.0); Bilirubin, Total < 0.2 mg/dL (0.2-1.0); Blood Urea Nitrogen 29 mg/dL (9-23); Calcium 8.7 mg/dL (8.7-10.4); Carbon Dioxide 21 mmol/L (20-30); Chloride 108 mmol/L (98-107); Glucose 82 mg/dL (74-106); Lipase 26 U/L (12-53); Sodium 140 mmol/L (136-145); Total Protein 7.3 g/dL (5.7-8.2)
[2023-10-08 06:59] LABS: Cholesterol 155 mg/dL (< 200); HDL Cholesterol 47 mg/dL (40-59); LDL Cholesterol 90 mg/dL (< 100); Triglycerides 238 mg/dL (< 150)
[2023-10-08] MEDS: ASPirin 81 mg TAB PO SCH (08:34)
[2023-10-08] MEDS: ATENOLOL 25 MG TAB PO SCH (08:35)
[2023-10-08] MEDS: ACETAMINOPHEN 325 MG TAB PO PRN (08:40)
[2023-10-08] MEDS: POTASSIUM CHL 20MEQ/100ML 100 ML IV SCH (10:30)
[2023-10-08] MEDS: MORPHINE SULFATE INJ 2 MG/ml SYRG IV PRN (11:34)
[2023-10-08] MEDS: MELATONIN 5 MG TAB PO PRN (23:56)
[2023-10-09] VITALS (9 sets, daily range): BP systolic 136–205; BP diastolic 58–87; PULSE 79–90; RESP 20–22; TEMP 97.9–98.6; O2SAT 95–100
[2023-10-09] MEDS: LABETALOL HCL 5 MG/ML 4ML SYRINGE IV PRN (02:00)
[2023-10-09] MEDS ORDERED: CLON-853 PO (08:57)
[2023-10-09] MEDS ORDERED: HYDR-4798 PO (09:11)
[2023-10-09] MEDS: cloNIDine HCL 0.1 MG TAB PO SCH (11:58)
[2023-10-09] MEDS: amLODIPine BESYLATE 5 MG TAB PO SCH (11:58)
[2023-10-09] MEDS ORDERED: clonazePAM 0.5 MG TAB PO PRN (12:30)
[2023-10-09] MEDS ORDERED: guaiFENesin-DM 100/10mg/5ml SYR PO PRN (16:30)
[2023-10-09] MEDS: FUROSEMIDE 40 MG TAB PO SCH (18:00)
[2023-10-09] MEDS: HYDROcodone-ACET 5/325MG TAB PO PRN (20:00)
[2023-10-09] MEDS: GABAPENTIN 300 MG CAP PO SCH (21:06)
[2023-10-10] VITALS (8 sets, daily range): BP systolic 121–129; BP diastolic 64–98; PULSE 70–73; RESP 20–22; TEMP 97.9–98.3; O2SAT 97–99
[2023-10-10 09:00] LABS: Basophils # (auto) 0.1 10 ^3/uL (0-0.2); Basophils % (auto) 0.7 % (0.0-2.0); Eosinophils # (auto) 0.2 10 ^3/uL (0-0.8); Eosinophils % (auto) 1.7 % (0.0-7.0); Hematocrit 38.1 % (36.0-46.0); Hemoglobin 12.5 g/dL (12.2-16.2); Lymphocytes # (auto) 2.4 10 ^3/uL (0.4-5.4); Lymphocytes % (auto) 24.8 % (10.0-50.0); Mean Corpuscular Hgb Conc. 32.8 g/dL (32.0-36.0); Mean Corpuscular Volume 88.4 fL (80.0-100.0); Monocytes % (auto) 10.3 % (0.0-12.0); Neutrophils % (auto) 62.5 % (37.0-80.0); Red Cell Distribution Width 14.4 % (11.8-14.3); White Blood Cell 9.6 10^3/uL (4.4-10.8)
[2023-10-10 09:05] LABS: Chloride 106 mmol/L (98-107); Potassium 3.7 mmol/L (3.5-5.1)
[2023-10-10 09:06] LABS: Anion Gap 8 (5-15); Calcium 8.8 mg/dL (8.7-10.4); Carbon Dioxide 21 mmol/L (20-30)
[2023-10-10 09:07] LABS: Sodium 135 mmol/L (136-145)
[2023-10-10 09:11] LABS: BUN/Creatinine Ratio 8.9 (10.0-20.0); Blood Urea Nitrogen 24 mg/dL (9-23); Glucose 182 mg/dL (74-106)
[2023-10-10 09:12] LABS: Magnesium 2.3 mg/dL (1.6-2.6)
[2023-10-10] MEDS: LORATADINE 10 MG TAB PO SCH (11:07)
[2023-10-10] MEDS ORDERED: HYDR25TA87 PO (12:17)
[2023-10-10] MEDS ORDERED: CLON0.3T PO (12:17)
[2023-10-10] MEDS ORDERED: CEFD300C2 PO (12:17)
== END 2023-10-10 14:59 | disposition home or self-care (01) | DRG 871 ==
LOC: ER 11:53 → TELE 16:03 → TELE-CENTR 23:33
PROVIDERS: ADMIT Hospitalist; ATTEND Hospitalist
DX: A41.9 Sepsis, unspecified organism (principal); E11.10 Type 2 diabetes mellitus with ketoacidosis without coma; N39.0 Urinary tract infection, site not specified; N18.4 Chronic kidney disease, stage 4 (severe); N17.9 Acute kidney failure, unspecified; J44.0 Chronic obstructive pulmonary disease with (acute) lower respiratory infection; I69.354 Hemiplegia and hemiparesis following cerebral infarction affecting left non-dominant side; I16.0 Hypertensive urgency; E86.0 Dehydration; D63.1 Anemia in chronic kidney disease; E11.40 Type 2 diabetes mellitus with diabetic neuropathy, unspecified; E87.6 Hypokalemia; E11.22 Type 2 diabetes mellitus with diabetic chronic kidney disease; I12.9 Hypertensive chronic kidney disease with stage 1 through stage 4 chronic kidney disease, or unspecified chronic kidney disease; E78.5 Hyperlipidemia, unspecified; F17.210 Nicotine dependence, cigarettes, uncomplicated; K21.9 Gastro-esophageal reflux disease without esophagitis; F32.A Depression, unspecified; F41.9 Anxiety disorder, unspecified; Z79.84 Long term (current) use of oral hypoglycemic drugs; Z79.899 Other long term (current) drug therapy; Z79.4 Long term (current) use of insulin; Z90.710 Acquired absence of both cervix and uterus; Z80.1 Family history of malignant neoplasm of trachea, bronchus and lung; Z82.49 Family history of ischemic heart disease and other diseases of the circulatory system
CPT/HCPCS: 36415; 36600; 71045; 76775; 80048; 80053; 80061; 81001; 82010; 82306; 82570; 82805; 82962; 83036; 83605; 83690; 83735; 83880; 83970; 84100; 84156; 84300; 84484; 85025; 87040; 87086; 87088; 87186; 96361; 96365; 97163; C9113; G0378; J1815; J2405; J2543; J3480; J3490

== ENCOUNTER 2024-05-25 12:33 | Emergency (ER) | payer OTHER, MEDICAID ==
[~2024-05-25] VITALS: Ht 160 cm; Wt 68.0 kg
[~2024-05-25 12:33] MED LIST changes: -ALPR0.5T PO; +CEFD300C2 PO; -CIPR500T4 PO; +CLON-853 PO; +HYDR-4798 PO; -NIFE1TAB31 PO; -POTA12PO2 PO
--- NOTE | 2024-05-25 14:47 | ED.PDOC ---
History of Present Illness HPI Comments 68Y F with PMHx DM, HTN, HLD, CKD, CVA, COPD, asthma, GERD, neuropathy, arthritis, anxiety, and depression presents to ED for chief complaint rt temporal pain x1wk. Additional symptoms include rt sided facial numbness. 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 Pt's neurologist is Dr. Jacobson. No known allergies. Chief Complaint: Face pain Time Seen by MD: 14:19 Primary Care Provider: BRINDA Dumont Notes: Medications, Allergies Allergies: Coded Allergies: NO KNOWN ALLERGIES (Unverified , 09/29/20) Home Meds Active Scripts Cefdinir (Cefdinir) 300 Mg Cap, 1 CAP PO BID, #14 CAP Prov:FILI CONTRERAS MD 10/10/23 Clonidine Hydrochloride (Clonidine Hcl) 0.3 Mg Tab, 1 TAB PO BID, #120 TAB Prov:FILI CONTRERAS MD 10/10/23 Hydralazine HCl (Hydralazine HCl) 25 Mg Tab, 50 MG PO TID, #120 TAB Prov:FILI CONTRERAS MD 10/10/23 Furosemide (Lasix) 40 Mg Tab, 40 MG PO BID, #30 TAB Prov:JAYDEN SHEIKH 11/04/22 Atenolol (Atenolol) 100 Mg Tab, 100 MG PO DAILY for 30 Days, #30 MG Prov:FRED STEPHEN MD 07/27/21 Amlodipine Besylate (Amlodipine Besylate) 10 Mg Tab, 1 TAB PO BID, #30 TAB 5 Refills Prov:FILI CONTRERAS MD 09/13/20 Reported Medications Hydrocodone-Acetaminophen (Hydrocodone Bitartrate/AC 10-325 mg) 1 Tab Tab, 1 TAB PO Q8HPRN PRN for PAIN SCALE 7 THRU 10, TAB 10/09/23 Clonazepam (Clonazepam) 1 Mg Tab, 0.25 TAB PO BID, #60 TAB 10/09/23 Zolpidem Tartrate (Zolpidem Tartrate) 5 Mg Tab, 1 TAB PO QHSP PRN for FOR INSOMNIA 11/05/22 Cholecalciferol (VITAMIN D-3) 2,000 Unit Tab, 2000 UNIT PO DAILY, TAB 12/28/14 Insulin Glargine (Lantus) 100 Units/Ml Vial, 80 UNITS SC DAILY, INJ 12/28/14 Omeprazole (PRILOSEC) 20 Mg Cap, 1 CAP PO DAILY, #90 CAP 2 Refills 06/05/14 Gabapentin (Gabapentin) 300 Mg Cap, 1 CAP PO BID, #90 CAP 1 Refill 06/05/14 Fluoxetine Hcl (Pmdd) (Fluoxetine) 20 Mg Cap, 4 CAP PO DAILY, #90 CAP 4 Refills 06/05/14 Information Source: Patient Mode of Arrival: Ambulatory Severity: Mild Timing: Days Duration: Since onset Past Medical History PAST MEDICAL HISTORY: Anxiety, Arthritis, Asthma, CKF, COPD, CVA, Depression, DM, GERD, High Lipids, HTN Surgical History: Hysterectomy ACROBATIC RIGGER History: No Pertinent ACROBATIC RIGGER History Family History Family History: Reviewed,noncontributory to illness, Family hx of DM, Family hx of Cancer, Family hx of heart herlinda Social History Smoker: Cigarettes, Less Than 1 Pack/Day Alcohol: Denies ETOH Use Drugs: Denies Drug Use Lives In: Home Constitutional: denies: chills, diaphoresis, fatigue, fever, malaise, sweats, weakness, others EENTM: reports: others (vision changes); denies: blurred vision, double vision, ear bleeding, ear discharge, ear drainage, ear pain, ear ringing, eye pain, eye redness, hearing loss, mouth pain, mouth swelling, nasal discharge, nose bleeding, nose congestion, nose pain, photophobia, tearing, throat pain, throat swelling, voice changes Respiratory: denies: cough, hemoptysis, orthopnea, SOB at rest, shortness of breath, SOB with excertion, stridor, wheezing, others Cardiovascular: denies: chest pain, dizzy spells, diaphoresis, Dyspnea on exertion, edema, irregular heart beat, left arm pain, lightheadedness, palpitations, PND, syncope, others Gastrointestinal: denies: abdomen distended, abdominal pain, blood streaked bowels, constipated, diarrhea, dysphagia, difficulty swallowing, hematemesis, melena, nausea, poor appetite, poor fluid intake, rectal bleeding, rectal pain, vomiting, others Genitourinary: denies: abnormal vagina bleeding, burning, dyspareunia, dysuria, flank pain, frequency, hematuria, incontinence, pain, , vagina discharge, urgency, others Neurological: reports: right sided numbness (face), others (face pain/rt temopoe); denies: dizziness, fainting, headache, left sided numbness, left sided weakness, numbness, paresthesia, pre-existing deficit, right sided weakness, seizure, speech problems, tingling, tremors, weakness Musculoskeletal: denies: back pain, gout, joint pain, joint swelling, muscle pain, muscle stiffness, neck pain, others Integumetry: denies: bruises, change in color, change in hair/nails, dryness, laceration, lesions, lumps, rash, wounds, others Allergic/Immunocompromised: denies: Difficulty Healing, Frequent Infections, Hives, Itching, others Hematologic/Lymphatic: denies: anemia, blood clots, easy bleeding, easy bruising, swollen glands, others Endocrine: denies: excessive hunger, excessive sweating, excessive thirst, excessive urination, flushing, intolerance to cold, intolerance to heat, unexplained weight gain, unexplained weight loss, others Psychiatric: denies: anxiety, bipolar disorder, depression, hopeless, panic disorder, schizophrenia, sleepless, suicidal, others All Other Systems: Reviewed and Negative Physical Exam General Appearance: No Apparent Distress, Normal HEENT: Normal ENT Inspection, Pharynx Normal, TMs Normal Neck: Full Range of Motion, Non-Tender, Normal, Normal Inspection Respiratory: Chest Non-Tender, Lungs Clear, No Accessory Muscle Use, No Respiratory Distress, Normal Breath Sounds Cardiovascular: No Edema, No JVD, No Murmur, No Gallop, Normal Peripheral Pulses, Regular Rate/Rhythm Breast Exam: Deferred Gastrointestinal: No Organomegaly, Non Tender, No Pulsatile Mass, Normal Bowel Sounds, Soft Genitalia: Deferred Pelvic: Deferred Rectal: Deferred Extremities: No calf tenderness, Normal capillary refill, Normal inspection, Normal range of motion, Non-tender, No pedal edema Musculoskeletal : Apperance: Normal Neurologic: Alert, vp software engineering II-XII nml as Tested, No Motor Deficits, Normal Affect, Normal Mood, No Sensory Deficits Cerebellar Function: Normal Reflexes: Normal Skin: Dry, Normal Color, Warm Lymphatic: No Adenopathy Was a procedure done? Was a procedure done?: No Differential Dx Considerations may include: Steady, temporal arteritis, stroke, meningitis, encephalitis, shingles X-Ray, Labs, Meds, VS Vital Signs Date Time Temp Pulse Resp B/P (MAP) Pulse Ox O2 Delivery O2 Flow Rate FiO2 05/25/24 13:02 98.9 94 16 180/72 (108) 94 Lab Test 05/25/24 15:27 Range/Units White Blood Count 8.8 4.4-10.8 10^3/uL Red Blood Count 4.09 4.0-5.20 10^6/uL Hemoglobin 12.1 L 12.2-16.2 g/dL Hematocrit 36.3 36.0-46.0 % Mean Corpuscular Volume 88.9 80.0-100.0 fL Mean Corpuscular Hemoglobin 29.5 28.0-32.0 pg Mean Corpuscular Hemoglobin Concent 33.2 32.0-36.0 g/dL Red Cell Distribution Width 13.6 11.8-14.3 % Platelet Count 344 140-450 10^3/uL Mean Platelet Volume 7.3 6.9-10.8 fL Neutrophils (%) (Auto) 68.2 37.0-80.0 % Lymphocytes (%) (Auto) 23.4 10.0-50.0 % Monocytes (%) (Auto) 8.0 0.0-12.0 % Eosinophils (%) (Auto) 0.1 0.0-7.0 % Basophils (%) (Auto) 0.3 0.0-2.0 % Neutrophils # (Auto) 6.0 1.6-8.6 10 ^3/uL Lymphocytes # (Auto) 2.1 0.4-5.4 10 ^3/uL Monocytes # (Auto) 0.7 0-1.3 10 ^3/uL Eosinophils # (Auto) 0 0-0.8 10 ^3/uL Basophils # (Auto) 0 0-0.2 10 ^3/uL Nucleated Red Blood Cells 0.0 % Erythrocyte Sedimentation Rate 13 0-20 mm/hr Sodium Level 133 L 136-145 mmol/L Potassium Level 3.9 3.5-5.1 mmol/L Chloride Level 100 98-107 mmol/L Carbon Dioxide Level 25 20-31 mmol/L Anion Gap 8 5-15 Blood Urea Nitrogen 45 H 9-23 mg/dL Creatinine 2.57 H 0.550-1.02 mg/dL Glomerular Filtration Rate Calc 20 >90 mL/min BUN/Creatinine Ratio 17.5 10.0-20.0 Serum Glucose 138 H 74-106 mg/dL Calcium Level 8.7 8.7-10.4 mg/dL Total Bilirubin < 0.2 L 0.2-1.0 mg/dL Aspartate Amino Transferase (AST) 10 L 13-40 U/L Alanine Aminotransferase (ALT) 19 7-40 U/L Alkaline Phosphatase 76 46-116 U/L C-Reactive Protein High Sensitivity 0.20 <1.0 mg/dL Total Protein 6.6 5.7-8.2 g/dL Albumin 4.3 3.2-4.8 g/dL X-Ray, Labs, Meds, VS Comment 68-year-old female presents to the emergency room with a concern of having tem poral arteritis. She was complaining of numbness and tingling to her right forehead. Her physical exam was benign. Labs were benign including negative CRP and ESR. As such, I do not believe she is having acute flare of temporal arteritis/giant cell arteritis. I reached out to our neurologist Dr. Kavon fernando agreed the patient would be appropriate for discharge. Time of 1ST Reevaluation: 14:49 Reevaluation 1ST: Unchanged Time of 2ND Reevaluation: 17:12 Reevaluation 2ND: Improved Patient Education/Counseling: Diagnosis, Treatment Family Education/Counseling: No Family Present Departure 1 Departure Time of Disposition: 17:12 Impression: Primary Impression: Anxiety Additional Impression: Alteration in sensory perception Disposition: 01 HOME / SELF CARE / HOMELESS Condition: Good Discharged With: Self Critical Care Note Critical Care Time?: No Stability Stability form required: No Heart Score Heart Score: Heart Score Response (Comments) Value History N/A 0 EKG N/A 0 Age N/A 0 Risk Factors N/A 0 Troponin N/A 0 Total 0 I personally scribed for LEXI CASTREJON MD ([email or web address]) on 05/25/24 at 14:47. Electronically submitted by Charlee Chavez ([email or web address]). LEXI CASTREJON MD May 25, 2024 14:47
[2024-05-25 15:57] LABS: Basophils # (auto) 0 10 ^3/uL (0-0.2); Basophils % (auto) 0.3 % (0.0-2.0); Eosinophils # (auto) 0 10 ^3/uL (0-0.8); Eosinophils % (auto) 0.1 % (0.0-7.0); Hematocrit 36.3 % (36.0-46.0); Hemoglobin 12.1 g/dL (12.2-16.2); Lymphocytes # (auto) 2.1 10 ^3/uL (0.4-5.4); Lymphocytes % (auto) 23.4 % (10.0-50.0); Mean Corpuscular Hemoglobin 29.5 pg (28.0-32.0); Mean Corpuscular Hgb Conc. 33.2 g/dL (32.0-36.0); Mean Corpuscular Volume 88.9 fL (80.0-100.0); Monocytes # (auto) 0.7 10 ^3/uL (0-1.3); Neutrophils % (auto) 68.2 % (37.0-80.0); Platelet Count (auto) 344 10^3/uL (140-450); Red Blood Cells 4.09 10^6/uL (4.0-5.20); Red Cell Distribution Width 13.6 % (11.8-14.3); White Blood Cell 8.8 10^3/uL (4.4-10.8)
[2024-05-25 16:44] LABS: Alanine Aminotransferase 19 U/L (7-40); Albumin 4.3 g/dL (3.2-4.8); Alkaline Phosphatase 76 U/L (46-116); Anion Gap 8 (5-15); BUN/Creatinine Ratio 17.5 (10.0-20.0); Calcium 8.7 mg/dL (8.7-10.4); Carbon Dioxide 25 mmol/L (20-31); Chloride 100 mmol/L (98-107); Potassium 3.9 mmol/L (3.5-5.1); Total Protein 6.6 g/dL (5.7-8.2)
[2024-05-25 16:45] LABS: Erythrocyte Sedimentation Rate 13 mm/hr (0-20)
[2024-05-25 16:46] LABS: Aspartate Aminotransferase 10 U/L (13-40); Bilirubin, Total < 0.2 mg/dL (0.2-1.0); Blood Urea Nitrogen 45 mg/dL (9-23); Glucose 138 mg/dL (74-106); Sodium 133 mmol/L (136-145)
[2024-05-25 17:31] VITALS: BP 149/77; PULSE 75; RESP 16; TEMP 98.3; O2SAT 100
== END 2024-05-25 17:34 | disposition home or self-care (01) ==
LOC: ER 12:33
DX: F41.9 Anxiety disorder, unspecified (principal); I69.998 Other sequelae following unspecified cerebrovascular disease; J45.909 Unspecified asthma, uncomplicated; I12.9 Hypertensive chronic kidney disease with stage 1 through stage 4 chronic kidney disease, or unspecified chronic kidney disease; E11.22 Type 2 diabetes mellitus with diabetic chronic kidney disease; N18.9 Chronic kidney disease, unspecified; F17.210 Nicotine dependence, cigarettes, uncomplicated; Z90.710 Acquired absence of both cervix and uterus; Z79.899 Other long term (current) drug therapy
CPT/HCPCS: 36415; 80053; 85025; 85652; 86141

== ENCOUNTER 2024-10-10 11:53 | Inpatient (IN) | payer OTHER, MEDICAID ==
[~2024-10-10] VITALS: Ht 160 cm; Wt 75.5 kg
[2024-10-10 12:42] VITALS: PULSE 65; RESP 18; O2SAT 98
[2024-10-10] MEDS: fentaNYL CITRATE 100 MCG/2 ML VL IV ONE ×2 (13:30→15:05)
--- NOTE | 2024-10-10 13:55 | DVH ---
CLINICAL INDICATION: 68 years old, Female; injury. TECHNIQUE: Noncontrast CT of the right hip was performed. Sagittal and coronal reformatted images are provided. COMPARISON: None CT Dose: CTDI volume is 18.98 mGy. Dose-length product is 513.55 mGy*cm FINDINGS: Acute comminuted fracture through the right greater trochanter. The fracture does not extend to the intertrochanteric region. No dislocation. Right hip joint space narrowing. Regional soft tissue swel ling. IMPRESSION: 1. Acute comminuted fracture through the greater trochanter of the right femur. All CT scans at this medical facility are performed using dose modulation techniques as appropriate t o a performed exam including the following: Automated exposure control was utilized; adjustment of th e MA and/or KV according to patient size; and use of iterative reconstruction technique.
--- NOTE | 2024-10-10 13:59 | DVH ---
CLINICAL INDICATION: 68 years old, Female; injury. TECHNIQUE: CT of the lumbar spine was performed without intravenous contrast. Sagittal and coronal re formatted images are provided. All CT scans at this medical facility are performed using dose modula tion techniques as appropriate to a performed exam including the following: Automated exposure contro l was utilized; adjustment of the MA and/or KV according to patient size; and use of iterative recons truction technique. COMPARISON: None CT Dose: CTDI volume is 24.6 mGy. Dose-length product is 866.7 mGy*cm FINDINGS: There is posterior instrumented fusion at L4-S1. Hardware appears intact. Haired There is grade 1 ant erolisthesis at L4-L5. The curvature of the lumbar spine is maintained. There are interbody implant s at L4-L5 and L5-S1. The vertebral bodies are normal in height. The intervertebral disc spaces are m aintained aside from at the operative levels. There is no evidence of spinal canal stenosis. Mild bi lateral neural foraminal stenosis at L4-L5 and L5-S1. The prevertebral soft tissues are unremarkable. Paraspinal muscles are also within normal limits. IMPRESSION: 1. Posterior instrumented fusion from L4-S1. No acute fracture or malalignment in the lumbar spine.
--- NOTE | 2024-10-10 14:09 | DVH ---
EXAMINATION: XY R RIB XRAY INDICATION: injury COMPARISON: None TECHNIQUE: Frontal view of the chest and 3 views of the right ribs history FINDINGS: No focal consolidation, pleural effusion or significant pneumothorax. Normal cardiomediastinal silhou ette. No displaced right rib fracture. IMPRESSION: No acute cardiopulmonary disease. No displaced right rib fracture.
[2024-10-10 14:35] LABS: Basophils # (auto) 0 10 ^3/uL (0-0.2); Basophils % (auto) 0.3 % (0.0-2.0); Eosinophils # (auto) 0 10 ^3/uL (0-0.8); Eosinophils % (auto) 0.3 % (0.0-7.0); Lymphocytes # (auto) 1.2 10 ^3/uL (0.4-5.4); Monocytes # (auto) 0.4 10 ^3/uL (0-1.3); Monocytes % (auto) 4.2 % (0.0-12.0); Neutrophils # (auto) 8.8 10 ^3/uL (1.6-8.6); Neutrophils % (auto) 84.2 % (37.0-80.0); White Blood Cell 10.5 10^3/uL (4.4-10.8)
[2024-10-10 14:36] LABS: Hematocrit 33.8 % (36.0-46.0); Hemoglobin 11.4 g/dL (12.2-16.2); Mean Corpuscular Hemoglobin 28.8 pg (28.0-32.0); Mean Corpuscular Hgb Conc. 33.8 g/dL (32.0-36.0); Mean Corpuscular Volume 85.1 fL (80.0-100.0); Platelet Count (auto) 360 10^3/uL (140-450); Red Blood Cells 3.96 10^6/uL (4.0-5.20); Red Cell Distribution Width 14.6 % (11.8-14.3)
[2024-10-10 14:46] LABS: Anion Gap 10 (5-15); Chloride 105 mmol/L (98-107)
[2024-10-10 14:47] LABS: Calcium 9.9 mg/dL (8.7-10.4); Carbon Dioxide 19 mmol/L (20-31); Potassium 3.3 mmol/L (3.5-5.1); Sodium 134 mmol/L (136-145)
[2024-10-10 14:52] LABS: BUN/Creatinine Ratio 10.2 (10.0-20.0); Blood Urea Nitrogen 25 mg/dL (9-23); Glucose 141 mg/dL (74-106)
--- NOTE | 2024-10-10 16:15 | ED.PDOC ---
History of Present Illness HPI Comments 68F BIBA w/ no prior Hx associated to the c/c of a mechanical fall. Pt reports slipping and falling onto her right leg and hip. Pt states on having right leg, hip and foot is hot and feels, numb. Pt states that she is unable to bear weight on the right leg. PMHx of Anxiety, Arthritis, Asthma, COPD, CVA, Depression, GERD, High Lipids, Stage 4 CKF, HTN, DM. SHx of Hysterectomy. Denies chills, fever, N/V/D, SOB, CP No other associated symptoms, modifiers, recent injuries or sick contacts present at this time. Chief Complaint: Fall Injury Time Seen by MD: 13:00 Primary Care Provider: TYESHA Reviewed Notes: Nurses Notes, Medications, Allergies Allergies: Coded Allergies: NO KNOWN ALLERGIES (Unverified , 09/29/20) Home Meds Active Scripts Cefdinir (Cefdinir) 300 Mg Cap, 1 CAP PO BID, #14 CAP Prov:FILI CONTRERAS MD 10/10/23 Clonidine Hydrochloride (Clonidine Hcl) 0.3 Mg Tab, 1 TAB PO BID, #120 TAB Prov:FILI CONTRERAS MD 10/10/23 Hydralazine HCl (Hydralazine HCl) 25 Mg Tab, 50 MG PO TID, #120 TAB Prov:FILI CONTRERAS MD 10/10/23 Furosemide (Lasix) 40 Mg Tab, 40 MG PO BID, #30 TAB Prov:JAYDEN SHEIKH LICENSING DIRECTOR 11/04/22 Atenolol (Atenolol) 100 Mg Tab, 100 MG PO DAILY for 30 Days, #30 MG Prov:FRED STEPHEN MD 07/27/21 Amlodipine Besylate (Amlodipine Besylate) 10 Mg Tab, 1 TAB PO BID, #30 TAB 5 Refills Prov:FILI CONTRERAS MD 09/13/20 Reported Medications Hydrocodone-Acetaminophen (Hydrocodone Bitartrate/AC 10-325 mg) 1 Tab Tab, 1 TAB PO Q8HPRN PRN for PAIN SCALE 7 THRU 10, TAB 10/09/23 Clonazepam (Clonazepam) 1 Mg Tab, 0.25 TAB PO BID, #60 TAB 10/09/23 Zolpidem Tartrate (Zolpidem Tartrate) 5 Mg Tab, 1 TAB PO QHSP PRN for FOR INSOMNIA 11/05/22 Cholecalciferol (VITAMIN D-3) 2,000 Unit Tab, 2000 UNIT PO DAILY, TAB 12/28/14 Insulin Glargine (Lantus) 100 Units/Ml Vial, 80 UNITS SC DAILY, INJ 12/28/14 Omeprazole (PRILOSEC) 20 Mg Cap, 1 CAP PO DAILY, #90 CAP 2 Refills 06/05/14 Gabapentin (Gabapentin) 300 Mg Cap, 1 CAP PO BID, #90 CAP 1 Refill 06/05/14 Fluoxetine Hcl (Pmdd) (Fluoxetine) 20 Mg Cap, 4 CAP PO DAILY, #90 CAP 4 Refills 06/05/14 Information Source: Patient Mode of Arrival: EMS Severity: Moderate Timing: Hours Duration: Since onset, Hours Prehospital treatment: None Past Medical History PAST MEDICAL HISTORY: Anxiety, Arthritis, Asthma, CKF, COPD, CVA, Depression, DM, GERD, High Lipids, HTN Surgical History: Hysterectomy CABLE COVERER History: No Pertinent CABLE COVERER History Family History Family History: Reviewed,noncontributory to illness, Unknown Social History Smoker: Unknown Alcohol: Denies ETOH Use Drugs: Denies Drug Use Lives In: Home Constitutional: denies: chills, diaphoresis, fatigue, fever, malaise, sweats, weakness, others EENTM: denies: blurred vision, double vision, ear bleeding, ear discharge, ear drainage, ear pain, ear ringing, eye pain, eye redness, hearing loss, mouth pain, mouth swelling, nasal discharge, nose bleeding, nose congestion, nose pain, photophobia, tearing, throat pain, throat swelling, voice changes, others Respiratory: denies: cough, hemoptysis, orthopnea, SOB at rest, shortness of breath, SOB with excertion, stridor, wheezing, others Cardiovascular: denies: chest pain, dizzy spells, diaphoresis, Dyspnea on exertion, edema, irregular heart beat, left arm pain, lightheadedness, palpitations, PND, syncope, others Gastrointestinal: denies: abdomen distended, abdominal pain, blood streaked bowels, constipated, diarrhea, dysphagia, difficulty swallowing, hematemesis, melena, nausea, poor appetite, poor fluid intake, rectal bleeding, rectal pain, vomiting, others Genitourinary: denies: abnormal vagina bleeding, burning, dyspareunia, dysuria, flank pain, frequency, hematuria, incontinence, pain, , vagina discharge, urgency, others Neurological: denies: dizziness, fainting, headache, left sided numbness, left sided weakness, numbness, paresthesia, pre-existing deficit, right sided numbness, right sided weakness, seizure, speech problems, tingling, tremors, weakness, others Musculoskeletal: reports: others (leg pain); denies: back pain, gout, joint pain, joint swelling, muscle pain, muscle stiffness, neck pain Integumetry: denies: bruises, change in color, change in hair/nails, dryness, laceration, lesions, lumps, rash, wounds, others Allergic/Immunocompromised: denies: Difficulty Healing, Frequent Infections, Hives, Itching, others Hematologic/Lymphatic: denies: anemia, blood clots, easy bleeding, easy bruising, swollen glands, others Endocrine: denies: excessive hunger, excessive sweating, excessive thirst, excessive urination, flushing, intolerance to cold, intolerance to heat, unexplained weight gain, unexplained weight loss, others Psychiatric: denies: anxiety, bipolar disorder, depression, hopeless, panic disorder, schizophrenia, sleepless, suicidal, others All Other Systems: Reviewed and Negative Physical Exam Exam Comments Right hip is tender w/ range of motion General Appearance: No Apparent Distress, Normal HEENT: Normal ENT Inspection, Pharynx Normal, TMs Normal Neck: Full Range of Motion, Non-Tender, Normal, Normal Inspection Respiratory: Chest Non-Tender, Lungs Clear, No Accessory Muscle Use, No Respiratory Distress, Normal Breath Sounds Cardiovascular: No Edema, No JVD, No Murmur, No Gallop, Normal Peripheral Pulses, Regular Rate/Rhythm Breast Exam: Deferred Gastrointestinal: No Organomegaly, Non Tender, No Pulsatile Mass, Normal Bowel Sounds, Soft Genitalia: Deferred Pelvic: Deferred Rectal: Deferred Extremities: No calf tenderness, Normal capillary refill, Normal inspection, Normal range of motion, Non-tender, No pedal edema Musculoskeletal : Apperance: Normal Neurologic: Alert, label cutter II-XII nml as Tested, No Motor Deficits, Normal Affect, Normal Mood, No Sensory Deficits Cerebellar Function: Normal Reflexes: Normal Skin: Dry, Normal Color, Warm Lymphatic: No Adenopathy Was a procedure done? Was a procedure done?: No Differential Dx Considerations may include: hip fracture, hip contusion, hip dislocation. spine fracture, low back strain, rib fracture, ptx, chest wall contusion X-Ray, Labs, Meds, VS Vital Signs Date Time Temp Pulse Resp B/P (MAP) Pulse Ox O2 Delivery O2 Flow Rate FiO2 10/10/24 17:19 80 20 210/89 10/10/24 17:18 210/89 10/10/24 15:05 192/78 10/10/24 14:51 74 20 192/ (116) 98 10/10/24 13:30 190/81 10/10/24 12:42 65 18 98 Room Air* 0 21 10/10/24 12:42 65 18 162/70 (100) 98 10/10/24 12:00 97.5 66 18 167/79 (108) 100 97.5 Lab Test 10/10/24 14:25 Range/Units White Blood Count 10.5 4.4-10.8 10^3/uL Red Blood Count 3.96 L 4.0-5.20 10^6/uL Hemoglobin 11.4 L 12.2-16.2 g/dL Hematocrit 33.8 L 36.0-46.0 % Mean Corpuscular Volume 85.1 80.0-100.0 fL Mean Corpuscular Hemoglobin 28.8 28.0-32.0 pg Mean Corpuscular Hemoglobin Concent 33.8 32.0-36.0 g/dL Red Cell Distribution Width 14.6 H 11.8-14.3 % Platelet Count 360 140-450 10^3/uL Mean Platelet Volume 7.2 6.9-10.8 fL Neutrophils (%) (Auto) 84.2 H 37.0-80.0 % Lymphocytes (%) (Auto) 11.0 10.0-50.0 % Monocytes (%) (Auto) 4.2 0.0-12.0 % Eosinophils (%) (Auto) 0.3 0.0-7.0 % Basophils (%) (Auto) 0.3 0.0-2.0 % Neutrophils # (Auto) 8.8 H 1.6-8.6 10 ^3/uL Lymphocytes # (Auto) 1.2 0.4-5.4 10 ^3/uL Monocytes # (Auto) 0.4 0-1.3 10 ^3/uL Eosinophils # (Auto) 0 0-0.8 10 ^3/uL Basophils # (Auto) 0 0-0.2 10 ^3/uL Nucleated Red Blood Cells 0.0 % Sodium Level 134 L 136-145 mmol/L Potassium Level 3.3 L 3.5-5.1 mmol/L Chloride Level 105 98-107 mmol/L Carbon Dioxide Level 19 L 20-31 mmol/L Anion Gap 10 5-15 Blood Urea Nitrogen 25 H 9-23 mg/dL Creatinine 2.46 H 0.550-1.02 mg/dL Glomerular Filtration Rate Calc 21 >90 mL/min BUN/Creatinine Ratio 10.2 10.0-20.0 Serum Glucose 141 H 74-106 mg/dL Calcium Level 9.9 8.7-10.4 mg/dL Current Medications Medications (Trade) Dose Ordered Sig/Sandy Route Start Time Stop Time Status Last Admin Fentanyl Citrate 12.5 mcg ONCE ONCE IV 10/10/24 13:15 10/10/24 13:16 DC 10/10/24 13:30 Fentanyl Citrate 12.5 mcg ONCE ONCE IV 10/10/24 15:00 10/10/24 15:01 DC 10/10/24 15:05 Morphine Sulfate 2 mg ONCE ONCE IV 10/10/24 17:15 10/10/24 17:16 DC 10/10/24 17:19 Clonidine HCl (Catapres Tablet) 0.1 mg ONCE ONCE PO 10/10/24 17:15 10/10/24 17:16 DC 10/10/24 17:18 Time of 1ST Reevaluation: 13:30 Reevaluation 1ST: Unchanged Patient Education/Counseling: Diagnosis, Treatment, Prognosis Family Education/Counseling: No Family Present Additional Information The following tests were ordered, and results were reviewed by me: PHA, LAB, XY, CT Additional Information was gathered from interviewing the following independent historians: 05/25/24 I reviewed and agreed with the following test results read by other providers:XY, CT I discussed treatment and results with medical personnel and: Patient Comprehensive systems review obtained and negative except for what is stated in the HPI. Departure 1 Departure Time of Disposition: 17:37 Impression: Primary Impression: Right femoral fracture Qualified Codes: S72.114A - Nondisplaced fracture of greater trochanter of right femur, initial encounter for closed fracture Additional Impressions: Falling Renal failure Disposition: ADMITTED INPATIENT Admit to: Med Surg Condition: Serious Discharged With: Self Critical Care Note Critical Care Time?: Yes (1 hr-critical care time only) Critical care comment: Due to concerns for patients condition deteriorating, the care required my highest level of attention and readiness to intervene. I assessed the patient, reviewed the medical records, ordered the appropriate tests and treatments, then reassessed for results and responsiveness. I communicated with medical personnel and consultants and formulated a plan of care. Total critical care time excludes any procedures Stability Stability form required: No I personally scribed for CHARISSA REVELES MD ([email or web address]) on 10/10/24 at 16:15. Silvia ctronically submitted by Miguel Angel Knutson ([email or web address]). CHARISSA REVELES MD Oct 10, 2024 16:15
[2024-10-10] MEDS: cloNIDine HCL 0.1 MG TAB PO ONE (17:18)
[2024-10-10] MEDS: MORPHINE SULFATE INJ 2 MG/ml SYRG IV ONE (17:19)
[2024-10-10] MEDS: LABETALOL INJECTION 250 MG in SODIUM CHL 0.9% 200 ML IV ONE (19:10)
[2024-10-10 19:25] VITALS: PULSE 120; RESP 20; O2SAT 96
[2024-10-10 20:03] LABS: Urine Bacteria FEW /hpf (None Seen); Urine Blood Negative /uL (Negative); Urine Clarity Clear (Clear); Urine Color Colorless (Yellow); Urine Protein, UAD Negative (Negative); Urine Specific Gravity 1.007 (1.001-1.035); Urine Squamous Epithelial Cell FEW /hpf (<5); Urine Urobilinogen Normal (Negative); Urine WBC 6 /HPF (0-5); Urine pH 5.5 (5.0-9.0)
[2024-10-10] MEDS ORDERED: NITROGLYCERIN 0.4 MG SL TAB SL PRN (21:15)
[2024-10-10] MEDS: POTASSIUM CHLORIDE 20 MEQ, LIDOCAINE 1% (LOCAL ANESTH.) 2 ML in SODIUM CHL 0.9% 100 ML IV ONE (21:15)
[2024-10-10] MEDS ORDERED: MORPHINE SULFATE INJ 2 MG/ml SYRG IV PRN (21:15)
[2024-10-10] MEDS ORDERED: DEXTROSE (50%) 50ML SYRG IV PRN (21:15)
[2024-10-10] MEDS: LABETALOL HCL 20 MG/4 ML VL IV PRN (21:46)
[2024-10-10] MEDS: ONDANSETRON HCL 4 MG/2 ML VIAL IV PRN (21:48)
[2024-10-10] MEDS: MORPHINE SULFATE INJ 2 MG/ml SYRG IV PRN (21:48)
[2024-10-10] MEDS: dilTIAZem 25 MG/5 ML VIAL IV ONE (22:05)
[2024-10-10 22:19] LABS: INR 0.97 (0.9-1.15); Partial Thromboplastin Time 26.6 SEC (24.5-34.5); Prothrombin Time 10.3 sec (9.3-11.8)
--- NOTE | 2024-10-10 22:25 | DVH ---
CHEST RADIOGRAPH Indication: preop Technique: Single frontal view of the chest was obtained Comparison: XY CHEST PORTABLE on DOS: 10/07/23, XY CHEST PORTABLE on DOS: 03/18/23, XY CHEST XRAY 1 VIE W on DOS: 11/04/22 FINDINGS: Lines and Tubes: None Lungs: Clear Pleura: No effusion. No pneumothorax. Cardiomediastinal contours: Unremarkable Bones: Unremarkable IMPRESSION: Clear lungs.
--- NOTE | 2024-10-10 23:23 | DVHHP2 ---
History of Present Illness Reason for Visit: Right hip pain History of Present Illness 68-year-old female presents for evaluation of right hip pain. Patient reports having a mechanical fall today in the afternoon. She was in her kitchen when she slipped and fell landing on her right side. She reports unable to bear weight on her right leg. Patient denies head trauma or loss of consciousness. Past Medical History Anxiety, Arthritis, Asthma, CKF, COPD, CVA, Depression, DM, GERD, High Lipids, HTN Past Surgical History Hysterectomy Family History Noncontributory Smoke: No ALCOHOL: none Drugs: None Lives: with Family Review of Systems Review of Systems Review of systems are currently negative otherwise addressed in HPI. Allergies: Coded Allergies: NO KNOWN ALLERGIES (Unverified , 09/29/20) Medications Current Medications Medications Dose Ordered Sig/Sandy Route Start Time Stop Time Status Last Admin Dose Admin Labetalol HCl 10 mg Q4HPRN PRN IV 10/10/24 21:15 10/10/24 23:06 10 MG Diagnostic Test (Pha) 1 strip Q6HR 10/11/24 00:00 Insulin Human Regular Q6HR SC 10/11/24 00:00 Dextrose 50 ml UD PRN IV 10/10/24 21:15 Ondansetron HCl 4 mg Q4HP PRN IV 10/10/24 21:15 10/10/24 21:48 4 MG Morphine Sulfate 2 mg Q4HPRN PRN IV 10/10/24 21:15 10/10/24 21:48 2 MG Nitroglycerin 0.4 mg Q5MINP PRN SL 10/10/24 21:15 Morphine Sulfate 2 mg Q30M PRN IV 10/10/24 21:15 Exam Vital Signs Vital Signs Date Time Temp Pulse Resp B/P (MAP) Pulse Ox O2 Delivery O2 Flow Rate FiO2 10/10/24 23:06 98 177/64 10/10/24 21:48 20 10/10/24 21:00 98.4 98 98.4 10/10/24 19:25 Room Air* 0 21 Exam Gen: 68-year-old female in mild distress Skin: Warm, dry, normal color and texture, no rash. HEENT: Normocephalic atraumatic, mucous membranes moist and pink. Neck: Cervical and supraclavicular nodes normal without enlargement, trachea is midline, thyroid gland is normal without masses. Pulmonary: Clear to auscultation and percussion bilaterally. Cardiac: Regular rate and rhythm. No murmur Abdomen: Soft, nontender, nondistended, bowel sounds present all 4 quadrants, no guarding, no rigidity, no organomegaly. Extremities: No cyanosis, clubbing, right lower extremity with positive distal pulses Neuro: Cranial nerves II through XII grossly intact, normal affect and speech, no focal motor deficits. Labs/Xrays ORDERING PHYSICIAN: CHARISSA REVELES MD PROCEDURE(s): LS2CT - LS SPINE WO CONTRAST REASON: injury ORDER NUMBER(s): [id number], ACCESSION NUMBER(s): [id number] CLINICAL INDICATION: 68 years old, Female; injury. TECHNIQUE: CT of the lumbar spine was performed without intravenous contrast. Sagittal and coronal reformatted images are provided. All CT scans at this medical facility are performed using dose modulation techniques as appropriate to a performed exam including the following: Automated exposure control was utilized; adjustment of the MA and/or KV according to patient size; and use of iterative reconstruction technique. COMPARISON: None CT Dose: CTDI volume is 24.6 mGy. Dose-length product is 866.7 mGy*cm FINDINGS: There is posterior instrumented fusion at L4-S1. Hardware appears intact. Haired There is grade 1 anterolisthesis at L4-L5. The curvature of the lumbar spine is maintained. There are interbody implants at L4-L5 and L5-S1. The vertebral bodies are normal in height. The intervertebral disc spaces are maintained aside from at the operative levels. There is no evidence of spinal canal stenosis. Mild bilateral neural foraminal stenosis at L4-L5 and L5-S1. The prevertebral soft tissues are unremarkable. Paraspinal muscles are also within normal limits. IMPRESSION: 1. Posterior instrumented fusion from L4-S1. No acute fracture or malalignment in the lumbar spine. RING PHYSICIAN: OMARI OSHEA AGACNP PROCEDURE(s): CXR1 - CHEST XRAY 1 VIEW REASON: preop ORDER NUMBER(s): [id number], ACCESSION NUMBER(s): [id number] CHEST RADIOGRAPH Indication: preop Technique: Single frontal view of the chest was obtained Comparison: XY CHEST PORTABLE on DOS: 10/07/23, XY CHEST PORTABLE on DOS: 03/18/23, XY CHEST XRAY 1 VIEW on DOS: 11/04/22 FINDINGS: Lines and Tubes: None Lungs: Clear Pleura: No effusion. No pneumothorax. Cardiomediastinal contours: Unremarkable Bones: Unremarkable IMPRESSION: Clear lungs. RING PHYSICIAN: CHARISSA REVELES MD PROCEDURE(s): RHPCT - CT R HIP WITH OUT CONTRAST REASON: injury ORDER NUMBER(s): [id number], ACCESSION NUMBER(s): [id number] CLINICAL INDICATION: 68 years old, Female; injury. TECHNIQUE: Noncontrast CT of the right hip was performed. Sagittal and coronal reformatted images are provided. COMPARISON: None CT Dose: CTDI volume is 18.98 mGy. Dose-length product is 513.55 mGy*cm FINDINGS: Acute comminuted fracture through the right greater trochanter. The fracture does not extend to the intertrochanteric region. No dislocation. Right hip joint space narrowing. Regional soft tissue swelling. IMPRESSION: 1. Acute comminuted fracture through the greater trochanter of the right femur. All CT scans at this medical facility are performed using dose modulation techniques as appropriate to a performed exam including the following: Automated exposure control was utilized; adjustment of the MA and/or KV according to patient size; and use of iterative reconstruction technique. Labs Test 10/10/24 21:31 10/10/24 14:25 10/10/24 14:13 Range/Units Prothrombin Time 10.3 9.3-11.8 sec Prothrombin Time INR 0.97 0.9-1.15 Activated Partial Thromboplast Time 26.6 24.5-34.5 SEC White Blood Count 10.5 4.4-10.8 10^3/uL Red Blood Count 3.96 L 4.0-5.20 10^6/uL Hemoglobin 11.4 L 12.2-16.2 g/dL Hematocrit 33.8 L 36.0-46.0 % Mean Corpuscular Volume 85.1 80.0-100.0 fL Mean Corpuscular Hemoglobin 28.8 28.0-32.0 pg Mean Corpuscular Hemoglobin Concent 33.8 32.0-36.0 g/dL Red Cell Distribution Width 14.6 H 11.8-14.3 % Platelet Count 360 140-450 10^3/uL Mean Platelet Volume 7.2 6.9-10.8 fL Neutrophils (%) (Auto) 84.2 H 37.0-80.0 % Lymphocytes (%) (Auto) 11.0 10.0-50.0 % Monocytes (%) (Auto) 4.2 0.0-12.0 % Eosinophils (%) (Auto) 0.3 0.0-7.0 % Basophils (%) (Auto) 0.3 0.0-2.0 % Neutrophils # (Auto) 8.8 H 1.6-8.6 10 ^3/uL Lymphocytes # (Auto) 1.2 0.4-5.4 10 ^3/uL Monocytes # (Auto) 0.4 0-1.3 10 ^3/uL Eosinophils # (Auto) 0 0-0.8 10 ^3/uL Basophils # (Auto) 0 0-0.2 10 ^3/uL Nucleated Red Blood Cells 0.0 % Sodium Level 134 L 136-145 mmol/L Potassium Level 3.3 L 3.5-5.1 mmol/L Chloride Level 105 98-107 mmol/L Carbon Dioxide Level 19 L 20-31 mmol/L Anion Gap 10 5-15 Blood Urea Nitrogen 25 H 9-23 mg/dL Creatinine 2.46 H 0.550-1.02 mg/dL Glomerular Filtration Rate Calc 21 >90 mL/min BUN/Creatinine Ratio 10.2 10.0-20.0 Serum Glucose 141 H 74-106 mg/dL Calcium Level 9.9 8.7-10.4 mg/dL Urine Color Colorless Yellow Urine Clarity Clear Clear Urine pH 5.5 5.0-9.0 Urine Specific [place] 1.007 1.001-1.035 Urine Protein Negative Negative Urine Ketones Negative Negative Urine Blood Negative Negative /uL Urine Nitrite Negative Negative Urine Bilirubin Negative Negative Urine Urobilinogen Normal Negative mg/dL Urine Leukocyte Esterase 2+ Negative /uL Urine RBC <1 0 - 4 /hpf Urine Microscopic WBC 6 H 0-5 /HPF Urine Squamous Epithelial Cells Few <5 /hpf Urine Bacteria Few H None Seen /hpf Urine Glucose Normal Normal mg/dL Assessment/Plan Assessment/Plan Assessment Right femoral fracture UTI Chronic kidney disease Electrolyte imbalance Diabetes mellitus Hypertensive urgency Plan Admit the patient to telemetry to the hospitalist Orthopedic consultation Cardiology clearance Pain management Continue treatment per orders. Plan discussed with: Patient My Orders Orders - OMARI OSHEA Procedure Category Date Status Time Labetalol Hcl PHA 10/10/24 In Process (Labetalol Hcl) 21:15 *Cons[address] Love CONS 10/10/24 Transmitted Latasha 21:06 Glucose Blood PHA 10/11/24 In Process (Accu-Chek Comfort 00:00 Insulin R (Human) PHA 10/11/24 In Process (Insulin R) 00:00 Dextrose 50% Syringe PHA 10/10/24 In Process 21:15 Admit ADMIT 10/10/24 Transmitted 21:06 Ondansetron Hcl PHA 10/10/24 In Process (Zofran) 21:15 Complete Blood Count LAB 10/11/24 Verified 04:00 Comprehensive LAB 10/11/24 Verified Metabolic Panel 04:00 Npo (Nothing By DIET 10/11/24 Transmitted Mouth) Diet Breakfast Condition: Fair MARIMAR 10/10/24 In Process 21:06 Bedrest With Bathroom MARIMAR 10/10/24 In Process Privileg 21:06 Morphine Sulfate PHA 10/10/24 In Process Injection 21:15 Nitroglycerin PHA 10/10/24 In Process Sublingual (Ntrostat 21:15 Morphine Sulfate PHA 10/10/24 In Process Injection 21:15 Stat Ekg For Chest MARIMAR 10/10/24 In Process Pain 21:06 Notify Md Of Changes MARIMAR 10/10/24 In Process From Base 21:06 Associate Web Developer For MARIMAR 10/10/24 In Process 24 Hours 21:06 Emergency Dysrhythmia MARIMAR 10/10/24 In Process Protocol 21:06 Rhythm Strips Once MARIMAR 10/10/24 In Process Every Shift 21:06 Oxygen By Nasal RT 10/10/24 Transmitted Cannula 21:06 Chest Xray 1 View XY 10/10/24 Resulted 21:06 Date of Service: Oct 10, 2024 Billing Provider: OMARI OSHEA Common Visit Codes: [id number] INP/OBS CARE (HIGH) OMARI OSHEA Oct 10, 2024 23:23
[2024-10-10] MEDS: POTASSIUM CHL 20MEQ/50ML 50 ML IV ONE (23:48)
[2024-10-11] VITALS (9 sets, daily range): BP systolic 123–202; BP diastolic 72–84; PULSE 92–107; RESP 17–19; TEMP 97.7–98.7; O2SAT 95–99
[2024-10-11] MEDS: ACCU-CHEK COMFORT CURVE STRIP VI SCH (00:08)
[2024-10-11] MEDS: InsuLIN REG 1unit/0.01ml Soln (100units/ml) SC SCH (00:19)
[2024-10-11] MEDS: dilTIAZem 25 MG/5 ML VIAL IV ONE (00:50)
[2024-10-11] MEDS ORDERED: AMIT25TA20 PO (03:01)
[2024-10-11] MEDS ORDERED: TIZA4TAB9 PO (03:01)
[2024-10-11] MEDS ORDERED: GLIP5TAB21 PO (03:01)
[2024-10-11] MEDS ORDERED: LURA40TA2 PO (03:01)
[2024-10-11 06:37] LABS: Basophils # (auto) 0 10 ^3/uL (0-0.2); Basophils % (auto) 0.3 % (0.0-2.0); Eosinophils # (auto) 0 10 ^3/uL (0-0.8); Eosinophils % (auto) 0.1 % (0.0-7.0); Hematocrit 32.8 % (36.0-46.0); Hemoglobin 11.1 g/dL (12.2-16.2); Lymphocytes # (auto) 1.4 10 ^3/uL (0.4-5.4); Lymphocytes % (auto) 15.6 % (10.0-50.0); Mean Corpuscular Hemoglobin 28.7 pg (28.0-32.0); Mean Corpuscular Hgb Conc. 33.8 g/dL (32.0-36.0); Mean Corpuscular Volume 84.8 fL (80.0-100.0); Monocytes # (auto) 0.7 10 ^3/uL (0-1.3); Monocytes % (auto) 7.8 % (0.0-12.0); Neutrophils # (auto) 6.6 10 ^3/uL (1.6-8.6); Neutrophils % (auto) 76.2 % (37.0-80.0); Platelet Count (auto) 343 10^3/uL (140-450); Red Blood Cells 3.87 10^6/uL (4.0-5.20); Red Cell Distribution Width 14.5 % (11.8-14.3); White Blood Cell 8.7 10^3/uL (4.4-10.8)
[2024-10-11 06:51] LABS: Alanine Aminotransferase 13 U/L (7-40); Albumin 4.4 g/dL (3.2-4.8); Alkaline Phosphatase 72 U/L (46-116); Anion Gap 10 (5-15); BUN/Creatinine Ratio 10.8 (10.0-20.0); Blood Urea Nitrogen 23 mg/dL (9-23); Calcium 9.6 mg/dL (8.7-10.4); Sodium 137 mmol/L (136-145); Total Protein 7.1 g/dL (5.7-8.2)
[2024-10-11 06:52] LABS: Aspartate Aminotransferase 9 U/L (13-40); Bilirubin, Total 0.2 mg/dL (0.2-1.0); Carbon Dioxide 20 mmol/L (20-31); Chloride 107 mmol/L (98-107); Glucose 140 mg/dL (74-106); Potassium 3.3 mmol/L (3.5-5.1)
--- NOTE | 2024-10-11 10:10 | ECG ---
[facility] Test Date: 2024-10-11 Test Time: 07:53:22 Pat Name: RONEY STONE Department: Room: 0293T A Gender: F Property Management Bookkeeper: JUWAN : 1955 Requested By: IEVTH CASILLAS Order Number: [id number] Reading MD: Neil Ruiz Measurements Intervals [place] Rate: 99 P: 83 MS: 218 QRS: 42 QRSD: 85 T: 21 QT: 338 QTc: 434 Interpretive Statements Sinus rhythm Prolonged MS interval Probable LVH with secondary repol abnrm Baseline wander in lead(s) V4 Electronically Signed On 10-14-2024 20:03:29 PDT by Neil Ruiz Please click the below link to view image of tracing.
--- NOTE | 2024-10-11 10:52 | DVHPN2 ---
Reviewed: Care Plan, H&P, Labs, Medications, Previous Orders, Radiology Changes from previous H/P or p: No Changes Objective Vitals Vital Signs Date Time Temp Pulse Resp B/P (MAP) Pulse Ox O2 Delivery O2 Flow Rate FiO2 10/11/24 09:00 98.7 100 18 197/78 (117) 97 98.7 10/11/24 02:10 Room Air* 0 21 Intake/Output Intake and Output 10/11/24 07:00 Intake Total 400 ml Output Total 1400 ml Balance -1000 ml Intake Oral 400 ml Output Urine Total 1400 ml Medications Current Medications Medications Dose Ordered Sig/Sandy Route Start Time Stop Time Status Last Admin Dose Admin Labetalol HCl 10 mg Q4HPRN PRN IV 10/10/24 21:15 10/11/24 08:52 10 MG Diagnostic Test (Pha) 1 strip Q6HR 10/11/24 00:00 10/11/24 05:37 1 STRIP Insulin Human Regular Q6HR SC 10/11/24 00:00 10/11/24 00:19 3 UNITS Dextrose 50 ml UD PRN IV 10/10/24 21:15 Ondansetron HCl 4 mg Q4HP PRN IV 10/10/24 21:15 10/10/24 21:48 4 MG Morphine Sulfate 2 mg Q4HPRN PRN IV 10/10/24 21:15 10/11/24 08:52 2 MG Nitroglycerin 0.4 mg Q5MINP PRN SL 10/10/24 21:15 Morphine Sulfate 2 mg Q30M PRN IV 10/10/24 21:15 Laboratory Results Laboratory Tests 10/11/24 05:44 Chemistry Test 10/10/24 14:25 10/11/24 05:44 Calcium Level 9.9 mg/dL (8.7-10.4) 9.6 mg/dL (8.7-10.4) Albumin 4.4 g/dL (3.2-4.8) Magnesium Level 2.0 mg/dL (1.6-2.6) Total Protein 7.1 g/dL (5.7-8.2) Coagulation Test 10/10/24 21:31 Prothrombin Time 10.3 sec (9.3-11.8) Prothrombin Time INR 0.97 (0.9-1.15) Activated Partial Thromboplast Time 26.6 SEC (24.5-34.5) Lipid panel Test 10/11/24 05:44 Cholesterol Level 130 mg/dL (< 200) HDL Cholesterol 42 mg/dL (40-59) Triglycerides Level 231 mg/dL (< 150) H LFT Test 10/11/24 05:44 Alanine Aminotransferase (ALT) 13 U/L (7-40) Alkaline Phosphatase 72 U/L (46-116) Aspartate Amino Transferase (AST) 9 U/L (13-40) L Total Bilirubin 0.2 mg/dL (0.2-1.0) HgA1c, TSH Test 10/11/24 05:44 Hemoglobin A1c 6.4 % A1C (<5.7) H Thyroid Stimulating Hormone (TSH) 1.69 uIU/mL (0.55-4.78) Urinalysis Test 10/10/24 14:13 Urine Color Colorless (Yellow) Urine Clarity Clear (Clear) Urine pH 5.5 (5.0-9.0) Urine Specific [place] 1.007 (1.001-1.035) Urine Protein Negative (Negative) Urine Ketones Negative (Negative) Urine Blood Negative /uL (Negative) Urine Nitrite Negative (Negative) Urine Bilirubin Negative (Negative) Urine Urobilinogen Normal mg/dL (Negative) Urine Leukocyte Esterase 2+ /uL (Negative) Urine RBC <1 /hpf (0 - 4) Urine Microscopic WBC 6 /HPF (0-5) H Urine Squamous Epithelial Cells Few /hpf (<5) Urine Bacteria Few /hpf (None Seen) H Urine Glucose Normal mg/dL (Normal) Labs and/or images reviewed: Labs reviewed by me, Image(s) reviewed by me Assessment/Plan Assessment/Plan Acute right femoral neck fracture pain management morphine, [place] consult for Dr. Pagan Mechanical fall Anxiety Arthritis Asthma CKD COPD History of CVA History of depression Diabetes UTI Hypertensive urgency Hyperlipidemia GERD History of two L spine surgeries and to C-spine surgeries Awaiting cardiology clearance Continue all home meds Time Spent 70 minutes Advanced care planning time 20 minutes Patient is full code Patient lives alone Family members out of state Per patient contact center analyst her best friend Haley [phone] who lives in [place] Patient sees psychiatrist and pain management Dr Plan discussed with: Patient Date of Service: Oct 11, 2024 Billing Provider: COTY TOWNSEND MD Common Visit Codes: [id number] CARE 30-74 MIN COTY TOWNSEND MD Oct 11, 2024 10:52
[2024-10-11] MEDS ORDERED: clonazePAM 0.5 MG TAB PO PRN (11:00)
[2024-10-11] MEDS: cloNIDine HCL 0.1 MG TAB PO PRN (11:56)
[2024-10-11] MEDS: hydrALAZINE HCL 20 MG/ML VL IV PRN (11:57)
--- NOTE | 2024-10-11 12:31 | DVHHP2 ---
History Allergies: Coded Allergies: NO KNOWN ALLERGIES (Unverified , 09/29/20) Chief Complaint: Right buttock pain Present Illness(Onset/Duration 68F, mechanical fall 10/10/24, difficulty bearing weight after fall. Presented TO ER, CT right hip taken showing right greater trochanteric fracture Past Surgical History nono contributory Medications see admitting H and P Physical Exam Skin intact EENT NC no acute trauma Chest and Lungs CTA B Heart RRR neg MRG Abdomen NBS ND NT Extremities Right buttock, hip tender to palpation greater trochanter, no pain with PROM right LE, NVI Vital Signs Vital Signs Date Time Temp Pulse Resp B/P (MAP) Pulse Ox O2 Delivery O2 Flow Rate FiO2 10/11/24 11:57 202/81 10/11/24 09:52 96 10/11/24 09:22 16 10/11/24 09:00 98.7 97 98.7 10/11/24 02:10 Room Air* 0 21 Impressions/Description 68F, Right hip greater trochanter fracture Plan NON surgical condition PT, FWW, WBAT RIGHT LE follow up ortho clinic 2 wks GLORIA HART MD Oct 11, 2024 12:31
--- NOTE | 2024-10-11 13:29 | DVHINCON2 ---
[facility] 10/11/24 1329: Date Seen: Oct 11, 2024 Referring Physician Elevated BP Reason for Consultation MD Chris History of Present Illness This is a 68-year-old female patient who presents to emergency room status post mechanical fall. The patient reports that she was at home wearing slippers when she slipped in her kitchen landing on her right side. She reports getting a hold of her caregiver who then called EMS. The patient was brought to the emergency room and found to have an acute comminuted fracture through the greater trochanter of the right femur. Cardiology was originally consulted for cardiac risk stratification. The surgical team evaluated the patient and deemed that the patient was not a surgical candidate. The primary care team has now reconsulted for elevated blood pressure. The patient denies any cardiac symptoms at time of assessment. Initial twelve lead electrocardiogram reveals normal sinus rhythm with first-degree AV block and left ventricular hypertrophy. Significant past medical history includes hypertension, dyslipidemia, CVA x2 without residual deficit, chronic kidney disease, type 2 diabetes mellitus, peripheral neuropathy, and asthma. The patient has a left arm fistula in place that she states has been there for approximately three years without use. She reports closely following a faa certified powerplant mechanic in the outpatient setting and has not needed to be dialyzed. The patient also reports following up with personnel analyst in the outpatient setting. It was noted that the patient was on hosp ice care. The patient reports that she never signed up for hospice care and that she has been having issues with the hospice company given that they have been charging her insurance for services that she has not received. Past Medical History Past medical history reviewed. No other significant than mentioned above. Past Surgical History Skin cancer removal to her nose Spinal surgery Left arm fistula in place Family History: Cancer (Lung cancer) G8 MOTHER G8 FATHER (Lung cancer) Cardiovascular disease FH: lung cancer G8 MOTHER G8 FATHER Family history: Cardiovascular disease G8 BROTHER Hypertension G8 FATHER G8 MOTHER G8 FATHER Family History Family history reviewed. Social History Patient has a 54 pack-year history, smokes approximately six cigarettes per day Denies any illicit drug use Denies any alcohol use Allergies: Coded Allergies: NO KNOWN ALLERGIES (Unverified , 09/29/20) Home Meds Active Scripts Cefdinir (Cefdinir) 300 Mg Cap, 1 CAP PO BID, #14 CAP Prov:GANAPAVARAPU,FILI MD 10/10/23 Clonidine Hydrochloride (Clonidine Hcl) 0.3 Mg Tab, 1 TAB PO BID, #120 TAB Prov:FILI CONTRERAS MD 10/10/23 Hydralazine HCl (Hydralazine HCl) 25 Mg Tab, 50 MG PO TID, #120 TAB Prov:FILI CONTRERAS MD 10/10/23 Furosemide (Lasix) 40 Mg Tab, 40 MG PO BID, #30 TAB Prov:JAYDEN SHEIKH OUTSOLE BEVELER 11/04/22 Atenolol (Atenolol) 100 Mg Tab, 100 MG PO DAILY for 30 Days, #30 MG Prov:FRED STEPHEN MD 07/27/21 Amlodipine Besylate (Amlodipine Besylate) 10 Mg Tab, 1 TAB PO BID, #30 TAB 5 Refills Prov:FILI CONTRERAS MD 09/13/20 Reported Medications Lurasidone Hydrochloride (LATUDA) 40 Mg Tab, 1 TAB PO QPM, #30 TAB 1 Refill 10/11/24 Glipizide (Glipizide) 5 Mg Tab, 1 TAB PO BID, #60 TAB 3 Refills 10/11/24 Tizanidine Hydrochloride (Zanaflex) 4 Mg Tab, 1 TAB PO QPM, #30 TAB 10/11/24 Amitriptyline Hcl (Amitriptyline Hcl) 25 Mg Tab, 1 TAB PO QPM, #30 TAB 5 Refills 10/11/24 Hydrocodone-Acetaminophen (Hydrocodone Bitartrate/AC 10-325 mg) 1 Tab Tab, 1 TAB PO Q8HPRN PRN for PAIN SCALE 7 THRU 10, TAB 10/09/23 Clonazepam (Clonazepam) 1 Mg Tab, 0.25 TAB PO BID, #60 TAB 10/09/23 Cholecalciferol (VITAMIN D-3) 2,000 Unit Tab, 2000 UNIT PO DAILY, TAB 12/28/14 Omeprazole (PRILOSEC) 20 Mg Cap, 1 CAP PO DAILY, #90 CAP 2 Refills 06/05/14 Gabapentin (Gabapentin) 300 Mg Cap, 1 CAP PO BID, #90 CAP 1 Refill 06/05/14 Discontinued Reported Medications Zolpidem Tartrate (Zolpidem Tartrate) 5 Mg Tab, 1 TAB PO QHSP PRN for FOR INSOMNIA 11/05/22 Insulin Glargine (Lantus) 100 Units/Ml Vial, 80 UNITS SC DAILY, INJ 12/28/14 Fluoxetine Hcl (Pmdd) (Fluoxetine) 20 Mg Cap, 4 CAP PO DAILY, #90 CAP 4 Refills 06/05/14 Home Meds Home medications reviewed. Current Medications Current Medications Medications (Trade) Dose Ordered Sig/Sandy Route PRN Reason Start Time Stop Time Status Last Admin Labetalol HCl (Labetalol HCl) 10 mg Q4HPRN PRN IV SBP>150 10/10/24 21:15 10/11/24 08:52 Diagnostic Test (Pha) (Accu-Chek Comfort Curve T) 1 strip Q6HR 10/11/24 00:00 10/11/24 12:00 Insulin Human Regular (InsuLIN R) Q6HR SC 10/11/24 00:00 10/11/24 00:19 Dextrose 50 ml UD PRN IV Blood Sugar LESS THAN 60 10/10/24 21:15 Ondansetron HCl (Zofran) 4 mg Q4HP PRN IV NAUSEA / VOMITING 10/10/24 21:15 10/10/24 21:48 Morphine Sulfate 2 mg Q4HPRN PRN IV SEVERE PAIN (7-10 PAIN SCALE) 10/10/24 21:15 10/11/24 08:52 Nitroglycerin (Ntrostat Sublingual) 0.4 mg Q5MINP PRN SL FOR CHEST PAIN 10/10/24 21:15 Morphine Sulfate 2 mg Q30M PRN IV FOR CHEST PAIN 10/10/24 21:15 Amitriptyline HCl (Elavil Tablet) 25 mg HS PO 10/11/24 22:00 Amlodipine Besylate (Norvasc Tablet) 10 mg DAILY PO 10/12/24 10:00 10/11/24 13:20 DC Atenolol (Tenormin Tablet) 100 mg DAILY PO 10/12/24 10:00 10/11/24 13:20 DC Clonazepam (KlonoPIN TABLET) 0.25 mg Q12HP PRN PO ANXIETY 10/11/24 11:00 Furosemide (Lasix Tablet) 40 mg BIDD PO 10/11/24 18:00 Gabapentin (Neurontin Capsule) 300 mg BID PO 10/11/24 22:00 Hydralazine HCl (Apresoline Injection) 10 mg Q6HP PRN IV SBP>150 10/11/24 11:45 10/11/24 11:57 Clonidine HCl (Catapres Tablet) 0.1 mg Q6HP PRN PO SBP>170 10/11/24 11:45 10/11/24 11:56 Acetaminophen/ Hydrocodone Bitart ([place] 5/325MG Tab) 1 tab Q4HPRN PRN PO MODERATE PAIN (4-6 PAIN SCALE) 10/11/24 11:45 Review of Systems Constitutional: No symptom reported Ears, Nose, & Throat: No symptom reported Eyes: No symptom reported Neurological: No symptoms reported Pulmonary/Respiratory: No symptoms reported Cardiovascular: No symptom reported Gastrointestinal: No symptom reported Genitourinary: No symptom reported Musculoskeletal: Right hip pain Skin: No symptom reported Psychiatric: No symptom reported Endocrine: No symptom reported Hematologic/Lymphatic: No symptom reported Vital Signs Vital Signs Date Time Temp Pulse Resp B/P (MAP) Pulse Ox O2 Delivery O2 Flow Rate FiO2 10/11/24 12:56 195/80 10/11/24 09:52 96 10/11/24 09:22 16 10/11/24 09:00 98.7 97 98.7 10/11/24 02:10 Room Air* 0 21 Physical Exam General Appearance: Cooperative. Well-developed. Well-nourished. No acute distress. Pulmonary/Respiratory: Clear, bilateral breaths sounds. Cardiovascular/Chest: Regular rate and rhythm. Peripheral Pulses: 2+ Radial (R). 2+ Radial (L). 2+ Pedal (R). 2+ Pedal (L) Abdominal Exam: Normal bowel sounds. Ankle Exam: Negative ankle edema Lower extremities: Negative lower extremity edema Neuro/Mental Status: A/OX4, coherent. Thoughts/Psych: Normal thought pattern. Appropriate mood and affect. Good judgment and insight. Appearance: No acute distress. Skin Exam: Normal inspection. Normal color. Warm and dry. Labs/Diagnostic Data Labs Test 10/11/24 12:20 10/11/24 05:44 10/10/24 21:31 10/10/24 14:13 Range/Units POC Glucose 160 H 70-106 mg/dl White Blood Count 8.7 4.4-10.8 10^3/uL Red Blood Count 3.87 L 4.0-5.20 10^6/uL Hemoglobin 11.1 L 12.2-16.2 g/dL Hematocrit 32.8 L 36.0-46.0 % Mean Corpuscular Volume 84.8 80.0-100.0 fL Mean Corpuscular Hemoglobin 28.7 28.0-32.0 pg Mean Corpuscular Hemoglobin Concent 33.8 32.0-36.0 g/dL Red Cell Distribution Width 14.5 H 11.8-14.3 % Platelet Count 343 140-450 10^3/uL Mean Platelet Volume 7.7 6.9-10.8 fL Neutrophils (%) (Auto) 76.2 37.0-80.0 % Lymphocytes (%) (Auto) 15.6 10.0-50.0 % Monocytes (%) (Auto) 7.8 0.0-12.0 % Eosinophils (%) (Auto) 0.1 0.0-7.0 % Basophils (%) (Auto) 0.3 0.0-2.0 % Neutrophils # (Auto) 6.6 1.6-8.6 10 ^3/uL Lymphocytes # (Auto) 1.4 0.4-5.4 10 ^3/uL Monocytes # (Auto) 0.7 0-1.3 10 ^3/uL Eosinophils # (Auto) 0 0-0.8 10 ^3/uL Basophils # (Auto) 0 0-0.2 10 ^3/uL Nucleated Red Blood Cells 0.0 % Sodium Level 137 136-145 mmol/L Potassium Level 3.3 L 3.5-5.1 mmol/L Chloride Level 107 98-107 mmol/L Carbon Dioxide Level 20 20-31 mmol/L Anion Gap 10 5-15 Blood Urea Nitrogen 23 9-23 mg/dL Creatinine 2.13 H 0.550-1.02 mg/dL Glomerular Filtration Rate Calc 25 >90 mL/min BUN/Creatinine Ratio 10.8 10.0-20.0 Serum Glucose 140 H 74-106 mg/dL Hemoglobin A1c 6.4 H <5.7 % A1C Calcium Level 9.6 8.7-10.4 mg/dL Magnesium Level 2.0 1.6-2.6 mg/dL Total Bilirubin 0.2 0.2-1.0 mg/dL Aspartate Amino Transferase (AST) 9 L 13-40 U/L Alanine Aminotransferase (ALT) 13 7-40 U/L Alkaline Phosphatase 72 46-116 U/L Total Protein 7.1 5.7-8.2 g/dL Albumin 4.4 3.2-4.8 g/dL Triglycerides Level 231 H < 150 mg/dL Cholesterol Level 130 < 200 mg/dL LDL Cholesterol 51 < 100 mg/dL HDL Cholesterol 42 40-59 mg/dL Thyroid Stimulating Hormone (TSH) 1.69 0.55-4.78 uIU/mL Prothrombin Time 10.3 9.3-11.8 sec Prothrombin Time INR 0.97 0.9-1.15 Activated Partial Thromboplast Time 26.6 24.5-34.5 SEC Urine Color Colorless Yellow Urine Clarity Clear Clear Urine pH 5.5 5.0-9.0 Urine Specific [place] 1.007 1.001-1.035 Urine Protein Negative Negative Urine Ketones Negative Negative Urine Blood Negative Negative /uL Urine Nitrite Negative Negative Urine Bilirubin Negative Negative Urine Urobilinogen Normal Negative mg/dL Urine Leukocyte Esterase 2+ Negative /uL Urine RBC <1 0 - 4 /hpf Urine Microscopic WBC 6 H 0-5 /HPF Urine Squamous Epithelial Cells Few <5 /hpf Urine Bacteria Few H None Seen /hpf Urine Glucose Normal Normal mg/dL Assessment Hypertensive emergency Rule out structural heart disease Hypertriglyceridemia Chronic kidney disease CVA x2 without residual deficit Type 2 diabetes mellitus Peripheral neuropathy Asthma Plan/Recommendation We will continue with the following plan/recommendations (Dr. Ware): * Transthoracic echocardiogram to evaluate cardiac function * Aggressive BP control * Up-titrate as tolerated * Lipid-lowering agent * Close Cardiac surveillance Patient seen and examined at bedside with . Thank you for allowing us to care for this patient. Please call with any questions or concerns. Critical care time spent: 42 minutes This medical document was created using an electronic medical record system with voice recognition software and computerized dictation system. Although this document has been carefully reviewed, there might still be some phonetic and typographical errors. Occasional wrong-word or ``sound-alike substitutions may have occurred due to the inherent limitations of voice recognition software. These areas are purely typographical due to imperfections of the software programs and do not reflect any compromise in the patient's medical care. Please read the chart carefully and recognize, using context, where these substitutions have occurred. Plan discussed with: Patient NYHA Physical activity limitations: NA Date of Service: Oct 11, 2024 Billing Provider: IVETH GONZALEZ [facility] Cardiology Common Codes: [id number] INP/OBS CARE (High) Cardiology Consultation Codes: [id number] CONSULT <45MIN BRANDON WARE DO 10/11/24 2325: Date Seen: Oct 11, 2024 Family History: Cancer (Lung cancer) G8 MOTHER G8 FATHER (Lung cancer) Cardiovascular disease FH: lung cancer G8 MOTHER G8 FATHER Family history: Cardiovascular disease G8 BROTHER Hypertension G8 FATHER G8 MOTHER G8 FATHER Allergies: Coded Allergies: NO KNOWN ALLERGIES (Unverified , 09/29/20) Home Meds Active Scripts Cefdinir (Cefdinir) 300 Mg Cap, 1 CAP PO BID, #14 CAP Prov:FILI CONTRERAS MD 10/10/23 Clonidine Hydrochloride (Clonidine Hcl) 0.3 Mg Tab, 1 TAB PO BID, #120 TAB Prov:FILI CONTRERAS MD 10/10/23 Hydralazine HCl (Hydralazine HCl) 25 Mg Tab, 50 MG PO TID, #120 TAB Prov:FILI CONTRERAS MD 10/10/23 Furosemide (Lasix) 40 Mg Tab, 40 MG PO BID, #30 TAB Prov:JAYDEN SHEIKH 11/04/22 Atenolol (Atenolol) 100 Mg Tab, 100 MG PO DAILY for 30 Days, #30 MG Prov:FRED STEPHEN MD 07/27/21 Amlodipine Besylate (Amlodipine Besylate) 10 Mg Tab, 1 TAB PO BID, #30 TAB 5 Refills Prov:FILI CONTRERAS MD 09/13/20 Reported Medications Lurasidone Hydrochloride (LATUDA) 40 Mg Tab, 1 TAB PO QPM, #30 TAB 1 Refill 10/11/24 Glipizide (Glipizide) 5 Mg Tab, 1 TAB PO BID, #60 TAB 3 Refills 10/11/24 Tizanidine Hydrochloride (Zanaflex) 4 Mg Tab, 1 TAB PO QPM, #30 TAB 10/11/24 Amitriptyline Hcl (Amitriptyline Hcl) 25 Mg Tab, 1 TAB PO QPM, #30 TAB 5 Refills 10/11/24 Hydrocodone-Acetaminophen (Hydrocodone Bitartrate/AC 10-325 mg) 1 Tab Tab, 1 TAB PO Q8HPRN PRN for PAIN SCALE 7 THRU 10, TAB 10/09/23 Clonazepam (Clonazepam) 1 Mg Tab, 0.25 TAB PO BID, #60 TAB 10/09/23 Cholecalciferol (VITAMIN D-3) 2,000 Unit Tab, 2000 UNIT PO DAILY, TAB 12/28/14 Omeprazole (PRILOSEC) 20 Mg Cap, 1 CAP PO DAILY, #90 CAP 2 Refills 06/05/14 Gabapentin (Gabapentin) 300 Mg Cap, 1 CAP PO BID, #90 CAP 1 Refill 06/05/14 Discontinued Reported Medications Zolpidem Tartrate (Zolpidem Tartrate) 5 Mg Tab, 1 TAB PO QHSP PRN for FOR INSOMNIA 11/05/22 Insulin Glargine (Lantus) 100 Units/Ml Vial, 80 UNITS SC DAILY, INJ 12/28/14 Fluoxetine Hcl (Pmdd) (Fluoxetine) 20 Mg Cap, 4 CAP PO DAILY, #90 CAP 4 Refills 06/05/14 Plan/Recommendation The patient was discussed, seen, and examined with Iveth Gonzalez NP. I agree with her Assessment and Plan, which was formulated with me. Plan discussed with: Patient Date of Service: Oct 11, 2024 Billing Provider: BRANDON WARE DO Cardiology Common Codes: [id number] INP/OBS CARE (High) IVETH GONZALEZ OUTSOLE BEVELER Oct 11, 2024 13:29 BRANDON WARE DO Oct 11, 2024 23:25
[2024-10-11] MEDS: NIFEdipine ER 30 MG TAB PO ONE (13:46)
[2024-10-11] MEDS: CARVEDILOL 3.125 MG TAB PO ONE (13:47)
[2024-10-11] MEDS: hydrALAZINE HCL 25 MG TAB PO ONE (17:06)
[2024-10-11] MEDS: FUROSEMIDE 20 MG TAB PO SCH (17:22)
[2024-10-11] MEDS: HYDROcodone-ACET 5/325MG TAB PO PRN (18:00)
[2024-10-11] MEDS: amLODIPine BESYLATE 5 MG TAB PO ONE (19:13)
[2024-10-11] MEDS: ATORVASTATIN 20 MG TAB PO SCH (21:00)
[2024-10-11] MEDS: AMITRIPTYLINE HCL 25 MG TAB PO SCH (21:00)
[2024-10-11] MEDS: GABAPENTIN 300 MG CAP PO SCH (21:00)
[2024-10-11] MEDS: cloNIDine HCL 0.1 MG TAB PO SCH (21:01)
[2024-10-11] MEDS: hydrALAZINE HCL 25 MG TAB PO SCH (21:01)
[2024-10-11] MEDS ORDERED: CARVEDILOL 3.125 MG TAB PO SCH (22:00)
[2024-10-12] VITALS (9 sets, daily range): BP systolic 137–188; BP diastolic 61–80; PULSE 68–101; RESP 18–20; TEMP 98.1–98.9; O2SAT 94–98
[2024-10-12] MEDS: POTASSIUM CHL 20 Meq TABLET PO ONE (06:31)
[2024-10-12] MEDS: METOPROLOL SUCCINATE XL 50 MG TAB PO ONE ×2 (07:57→20:09)
[2024-10-12] MEDS: amLODIPine BESYLATE 5 MG TAB PO SCH (09:21)
[2024-10-12] MEDS: METOPROLOL SUCCINATE XL 50 MG TAB PO SCH (09:21)
[2024-10-12] MEDS ORDERED: ATENOLOL 25 MG TAB PO SCH (10:00)
[2024-10-12] MEDS ORDERED: NIFEdipine ER 30 MG TAB PO SCH (10:00)
[2024-10-12] MEDS ORDERED: amLODIPine BESYLATE 5 MG TAB PO SCH (10:00)
--- NOTE | 2024-10-12 11:55 | DVHPN2 ---
Consult Progress Note Subjective Other Systems: Patient in normal sinus rhythm on cardiac tech. Denies any cardiac symptoms at time of assessment Objective vital signs Vital Sign Date Time Temp Pulse Resp B/P (MAP) Pulse Ox O2 Delivery O2 Flow Rate FiO2 10/12/24 09:22 95 192/86 10/12/24 09:00 98.4 20 94 98.4 10/11/24 20:00 Room Air* 0 21 Total Intake and Output 10/11/24 10/11/24 10/12/24 15:00 23:00 07:00 Intake Total 500 ml 500 ml Output Total 500 ml 525 ml Balance 0 ml -25 ml medications Current Medications Medications Dose Ordered Sig/Sandy Route Start Time Stop Time Status Last Admin Dose Admin Labetalol HCl 10 mg Q4HPRN PRN IV 10/10/24 21:15 10/12/24 09:22 10 MG Diagnostic Test (Pha) 1 strip Q6HR 10/11/24 00:00 10/11/24 17:22 1 STRIP Insulin Human Regular Q6HR SC 10/11/24 00:00 10/11/24 18:29 3 UNITS Dextrose 50 ml UD PRN IV 10/10/24 21:15 Ondansetron HCl 4 mg Q4HP PRN IV 10/10/24 21:15 10/10/24 21:48 4 MG Morphine Sulfate 2 mg Q4HPRN PRN IV 10/10/24 21:15 10/11/24 15:53 2 MG Nitroglycerin 0.4 mg Q5MINP PRN SL 10/10/24 21:15 Morphine Sulfate 2 mg Q30M PRN IV 10/10/24 21:15 Amitriptyline HCl 25 mg HS PO 10/11/24 22:00 10/11/24 21:00 25 MG Clonazepam 0.25 mg Q12HP PRN PO 10/11/24 11:00 Furosemide 40 mg BIDD PO 10/11/24 18:00 10/12/24 05:19 40 MG Gabapentin 300 mg BID PO 10/11/24 22:00 10/12/24 09:20 300 MG Acetaminophen/ Hydrocodone Bitart 1 tab Q4HPRN PRN PO 10/11/24 11:45 10/12/24 04:33 1 TAB Hydralazine HCl 50 mg TID PO 10/11/24 22:00 10/12/24 05:18 50 MG Clonidine HCl 0.1 mg TID PO 10/11/24 22:00 10/12/24 05:20 0.1 MG Metoprolol Succinate 50 mg DAILY PO 10/12/24 10:00 10/12/24 09:21 50 MG Amlodipine Besylate 5 mg DAILY PO 10/12/24 10:00 10/12/24 09:21 5 MG Atorvastatin Calcium 40 mg HS PO 10/11/24 22:00 10/11/24 21:00 40 MG laboratory and microbiology Laboratory Tests 10/11/24 05:44 Test 10/11/24 05:44 Range/Units Serum Glucose 140 H 74-106 mg/dL Problem List/Assessment/Plan Problem List/Assessment/Plan Hypertensive emergency Rule out structural heart disease Rule out renal artery stenosis Hypertriglyceridemia Chronic kidney disease CVA x2 without residual deficit Type 2 diabetes mellitus Peripheral neuropathy Asthma Plan/Recommendation (Dr. Thurman): * Transthoracic echocardiogram to evaluate cardiac function * Aggressive BP control * Up-titrate as tolerated * Lipid-lowering agent * Renal Ultrasound * Close Cardiac surveillance Patient seen and examined at bedside with . Thank you for allowing us to care for this patient. Please call with any questions or concerns. This medical document was created using an electronic medical record system with voice recognition software and computerized dictation system. Although this document has been carefully reviewed, there might still be some phonetic and typographical errors. Occasional wrong-word or ``sound-alike substitutions may have occurred due to the inherent limitations of voice recognition software. These areas are purely typographical due to imperfections of the software programs and do not reflect any compromise in the patient's medical care. Please read the chart carefully and recognize, using context, where these substitutions have occurred. Plan discussed with: Patient Date of Service: Oct 12, 2024 Billing Provider: IVETH CASILLAS Common Visit Codes: [id number] INP/OBS CARE(HIGH) IVETH CASILLAS Oct 12, 2024 11:55
--- NOTE | 2024-10-12 17:09 | DVHSR ---
APPROVED REPORT EXAM: LIMITED Two-dimensional and M-mode echocardiogram with Doppler and color Doppler. Blood Pressure: 192/86 mmHg INDICATION Dyspnea eval RISK FACTORS Height: 5'3, Weight: 166 DIMENSIONS LVDd4.0 (3.8-5.7cm)LA (2D)4.0 (1.9-4.0cm)Aortic Root3.2 (2.0-3.7cm) LVDs2.6 (2.5-4.0cm)LA (MM) (1.9-4.0cm)Aortic Cusp Exc1.5 (1.5-2.0cm) EF (%) 64.0 (55-70%)Rt. Atrium3.7 (1.9-4.0cm)Asc. Aorta cm IVSd1.1 (0.7-1.1cm)RV (D)3.2 (1.8-2.4cm) PWd0.9 (0.7-1.1cm) Mitral Valve MitralMitral Stenosis E wave1.11m/sMV Mean GR.6mmHg A wave1.76m/sMV Peak GR.138mmHg E/A ratio0.62D MVAcm2 DECEL [id number] 1/2 Timems Aortic Valve Aortic ValveAortic Stenosis V11.29m/Marcy Mean GR.7mmHg V21.82m/Marcy Peak GR.13mmHg LVOT Diameter2.1 (1.8-2.4cm)Doppler AVA2.45cm2 Tricuspid Valve TR Velocity2.99m/s [id number] Other Information Quality : Technically LimitedRhythm : Technically limited study due to body habitus.patient position. Conclusion LVEF is normal at 60-65%, midl LVH, moderate diastolic dysfunction Right ventricle size and function normal Mild pulmonary hypertension RVSP 4-45mmgh Mild left atrial dilation Mitral annular calcification, mild mitral stenosis
--- NOTE | 2024-10-12 19:37 | DVH ---
INDICATION: Renal artery stenosis TECHNIQUE: Multiple real-time sonographic images of the kidneys and bladder were obtained. Duplex Doppler evaluation including color Doppler and spectral/pulsed waveform analysis of the bilate ral renal arteries was performed. COMPARISON: None FINDINGS: Right kidney is hypoechoic and has reduced cortical thickness cortex measures approximately 1.1 cm in the right kidney measures 9 cm in length Right kidney arcuate artery in the lower pole has a peak systolic velocity of 15 cm/sec and resistive index = 0.73. Right kidney upper pole arcuate artery has a peak systolic velocity is 17.1 cm/sec and resistive inde x = 0.66. Right kidney interpolar arcuate artery has a peak systolic velocity of 12.3 cm/sec and resistive inde x = 0.64. Peak systolic velocity in the distal right renal artery is 49 cm/sec resistive index = 0.72 . Peak systolic velocity in the mid right renal artery is 51.7 cm/sec resistive index = 0.76. Peak systolic velocity in the mid aorta is 52.3 cm/sec resistive index = none. Left kidney also has thin cortex measuring 8 mm in thickness. Left kidney measures 7.45 cm in length. Peak systolic velocity in the left inferior segmental renal artery is 41 cm/sec resistive index = 0.7 4. Peak systolic velocity in the superior pole segmental renal artery is 26.3 cm/sec and resistive index = 0.75. Peak systolic velocity in mid segmental renal artery is 54 cm/sec there is a Sky x = 0.77. IMPRESSION: 1. Bilateral renal atrophy and bilateral reduced perfusion
[2024-10-12] MEDS: amLODIPine BESYLATE 5 MG TAB PO ONE (20:10)
--- NOTE | 2024-10-12 21:35 | DVHPN2 ---
Consult Progress Note Subjective Other Systems: Patient was seen and evaluated in follow up. No overnight events. Patient in normal sinus rhythm on monitoring engineer. Denies any cardiac symptoms. Telemetry reviewed. Objective vital signs Vital Sign Date Time Temp Pulse Resp B/P (MAP) Pulse Ox O2 Delivery O2 Flow Rate FiO2 10/12/24 21:00 98.9 95 18 166/68 (100) 96 98.9 10/12/24 20:00 Room Air* 0 21 Total Intake and Output 10/11/24 10/11/24 10/12/24 15:00 23:00 07:00 Intake Total 500 ml 500 ml Output Total 500 ml 525 ml Balance 0 ml -25 ml medications Current Medications Medications Dose Ordered Sig/Sandy Route Start Time Stop Time Status Last Admin Dose Admin Labetalol HCl 10 mg Q4HPRN PRN IV 10/10/24 21:15 10/12/24 18:36 10 MG Diagnostic Test (Pha) 1 strip Q6HR 10/11/24 00:00 10/12/24 18:16 1 STRIP Insulin Human Regular Q6HR SC 10/11/24 00:00 10/12/24 18:41 2 UNITS Dextrose 50 ml UD PRN IV 10/10/24 21:15 Ondansetron HCl 4 mg Q4HP PRN IV 10/10/24 21:15 10/10/24 21:48 4 MG Morphine Sulfate 2 mg Q4HPRN PRN IV 10/10/24 21:15 10/12/24 15:58 2 MG Nitroglycerin 0.4 mg Q5MINP PRN SL 10/10/24 21:15 Morphine Sulfate 2 mg Q30M PRN IV 10/10/24 21:15 Amitriptyline HCl 25 mg HS PO 10/11/24 22:00 10/11/24 21:00 25 MG Clonazepam 0.25 mg Q12HP PRN PO 10/11/24 11:00 Furosemide 40 mg BIDD PO 10/11/24 18:00 10/12/24 18:16 40 MG Gabapentin 300 mg BID PO 10/11/24 22:00 10/12/24 09:20 300 MG Acetaminophen/ Hydrocodone Bitart 1 tab Q4HPRN PRN PO 10/11/24 11:45 10/12/24 20:10 1 TAB Hydralazine HCl 50 mg TID PO 10/11/24 22:00 10/12/24 14:13 50 MG Clonidine HCl 0.1 mg TID PO 10/11/24 22:00 10/12/24 14:13 0.1 MG Atorvastatin Calcium 40 mg HS PO 10/11/24 22:00 10/11/24 21:00 40 MG Amlodipine Besylate 10 mg DAILY PO 10/13/24 10:00 Metoprolol Succinate 100 mg DAILY PO 10/13/24 10:00 Examination: GENERAL:Normal, HEENT:Normal, NECK:Normal, LUNGS:Normal, CVS:Normal, ABDOMEN:Normal laboratory and microbiology Laboratory Tests 10/11/24 05:44 Test 10/11/24 05:44 Range/Units Serum Glucose 140 H 74-106 mg/dL Problem List/Assessment/Plan Problem List/Assessment/Plan Problem List/Assessment/Plan Hypertensive emergency. Rule out structural heart disease. Rule out renal artery stenosis. Hypertriglyceridemia. Chronic kidney disease. 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 Type 2 diabetes mellitus. Peripheral neuropathy. Asthma. Plan/Recommendation Continued all current supportive medical care. Patient has been seen by Ekaterina Gonzalez NP on my behalf, her and I discussed the plan with the patient. Transthoracic echocardiogram to evaluate cardiac function. Aggressive BP control. Up-titrate as tolerated. Lipid-lowering agent. Renal Ultrasound. Close Cardiac surveillance. Additional plan as per the hospital course. Plan discussed with: Patient Dietary Evaluation Review Comments: 1) CCHO 60 + cardiac diet 2) Refer Orchestrator on DC 3) Continue current plan of care Expected Outcomes/Goals: To meet >75% estimated needs Fu 3-5 days Date of Service: Oct 12, 2024 Billing Provider: KALEIGH ARAMBULA MD Cardiology Common Codes: [id number] [facility] KALEIGH ARAMBULA MD Oct 12, 2024 21:29
[2024-10-13] VITALS (8 sets, daily range): BP systolic 137–178; BP diastolic 57–77; PULSE 77–95; RESP 16–18; TEMP 97.6–99.1; O2SAT 94–99
[2024-10-13] MEDS: PANTOPRAZOLE 40 MG TAB PO SCH (01:08)
[2024-10-13] MEDS ORDERED: PANTOPRAZOLE 40 MG TAB PO SCH (06:00)
[2024-10-13] MEDS: METOPROLOL SUCCINATE XL 50 MG TAB PO SCH (08:40)
[2024-10-13] MEDS: amLODIPine BESYLATE 5 MG TAB PO SCH (08:41)
--- NOTE | 2024-10-13 11:13 | DVHPN2 ---
Reviewed: Care Plan, H&P, Labs, Medications, Previous Orders, Radiology Changes from previous H/P or p: No Changes Objective Vitals Vital Signs Date Time Temp Pulse Resp B/P (MAP) Pulse Ox O2 Delivery O2 Flow Rate FiO2 10/13/24 09:00 98.0 78 16 137/57 (83) 94 98.0 10/13/24 08:00 Room Air* 0 21 Intake/Output Intake and Output 10/13/24 07:00 Intake Total 1800 ml Output Total 2800 ml Balance -1000 ml Intake Oral 1800 ml Output Urine Total 2800 ml Medications Current Medications Medications Dose Ordered Sig/Sandy Route Start Time Stop Time Status Last Admin Dose Admin Labetalol HCl 10 mg Q4HPRN PRN IV 10/10/24 21:15 10/12/24 23:33 10 MG Diagnostic Test (Pha) 1 strip Q6HR 10/11/24 00:00 10/12/24 18:16 1 STRIP Insulin Human Regular Q6HR SC 10/11/24 00:00 10/12/24 18:41 2 UNITS Dextrose 50 ml UD PRN IV 10/10/24 21:15 Ondansetron HCl 4 mg Q4HP PRN IV 10/10/24 21:15 10/10/24 21:48 4 MG Morphine Sulfate 2 mg Q4HPRN PRN IV 10/10/24 21:15 10/13/24 05:52 2 MG Nitroglycerin 0.4 mg Q5MINP PRN SL 10/10/24 21:15 Morphine Sulfate 2 mg Q30M PRN IV 10/10/24 21:15 Amitriptyline HCl 25 mg HS PO 10/11/24 22:00 10/12/24 21:26 25 MG Clonazepam 0.25 mg Q12HP PRN PO 10/11/24 11:00 Furosemide 40 mg BIDD PO 10/11/24 18:00 10/13/24 04:59 40 MG Gabapentin 300 mg BID PO 10/11/24 22:00 10/13/24 08:41 300 MG Acetaminophen/ Hydrocodone Bitart 1 tab Q4HPRN PRN PO 10/11/24 11:45 10/13/24 08:42 1 TAB Hydralazine HCl 50 mg TID PO 10/11/24 22:00 10/13/24 05:00 50 MG Clonidine HCl 0.1 mg TID PO 10/11/24 22:00 10/13/24 05:00 0.1 MG Atorvastatin Calcium 40 mg HS PO 10/11/24 22:00 10/12/24 21:27 40 MG Amlodipine Besylate 10 mg DAILY PO 10/13/24 10:00 10/13/24 08:41 10 MG Metoprolol Succinate 100 mg DAILY PO 10/13/24 10:00 10/13/24 08:40 100 MG Pantoprazole Sodium 40 mg DAILY@0600 PO 10/13/24 01:15 10/13/24 04:59 40 MG Laboratory Results Laboratory Tests 10/11/24 05:44 Urinalysis Test 10/10/24 14:13 Urine Color Colorless (Yellow) Urine Clarity Clear (Clear) Urine pH 5.5 (5.0-9.0) Urine Specific [place] 1.007 (1.001-1.035) Urine Protein Negative (Negative) Urine Ketones Negative (Negative) Urine Blood Negative /uL (Negative) Urine Nitrite Negative (Negative) Urine Bilirubin Negative (Negative) Urine Urobilinogen Normal mg/dL (Negative) Urine Leukocyte Esterase 2+ /uL (Negative) Urine RBC <1 /hpf (0 - 4) Urine Microscopic WBC 6 /HPF (0-5) H Urine Squamous Epithelial Cells Few /hpf (<5) Urine Bacteria Few /hpf (None Seen) H Urine Glucose Normal mg/dL (Normal) Labs and/or images reviewed: Labs reviewed by me, Image(s) reviewed by me Assessment/Plan Assessment/Plan Acute right femoral neck fracture pain management morphine, [place], consult for Dr. 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
--- NOTE | 2024-10-13 21:22 | DVHPN2 ---
Progress Note - Dictate Date Seen: Oct 13, 2024 Medical Necessity Reason Pt with a Central, PICC or Fol: No Subjective Patient was seen and evaluated in follow up. No overnight events. Patient complains of acid reflux. BS are in the 150's. Telemetry reviewed. vital signs Vital Sign Date Time Temp Pulse Resp B/P (MAP) Pulse Ox O2 Delivery O2 Flow Rate FiO2 10/13/24 18:00 147/68 10/13/24 17:00 97.9 78 18 99 97.9 10/13/24 08:00 Room Air* 0 21 Total Intake and Output 10/12/24 10/12/24 10/13/24 15:00 23:00 07:00 Intake Total 1000 ml 800 ml Output Total 1700 ml 1100 ml Balance -700 ml -300 ml medications Current Medications Medications Dose Ordered Sig/Sandy Route Start Time Stop Time Status Last Admin Dose Admin Labetalol HCl 10 mg Q4HPRN PRN IV 10/10/24 21:15 10/12/24 23:33 10 MG Diagnostic Test (Pha) 1 strip Q6HR 10/11/24 00:00 10/13/24 18:13 1 STRIP Insulin Human Regular Q6HR SC 10/11/24 00:00 10/13/24 18:11 2 UNITS Dextrose 50 ml UD PRN IV 10/10/24 21:15 Ondansetron HCl 4 mg Q4HP PRN IV 10/10/24 21:15 10/10/24 21:48 4 MG Morphine Sulfate 2 mg Q4HPRN PRN IV 10/10/24 21:15 10/13/24 15:42 2 MG Nitroglycerin 0.4 mg Q5MINP PRN SL 10/10/24 21:15 Morphine Sulfate 2 mg Q30M PRN IV 10/10/24 21:15 Amitriptyline HCl 25 mg HS PO 10/11/24 22:00 10/12/24 21:26 25 MG Clonazepam 0.25 mg Q12HP PRN PO 10/11/24 11:00 Furosemide 40 mg BIDD PO 10/11/24 18:00 10/13/24 04:59 40 MG Gabapentin 300 mg BID PO 10/11/24 22:00 10/13/24 08:41 300 MG Acetaminophen/ Hydrocodone Bitart 1 tab Q4HPRN PRN PO 10/11/24 11:45 10/13/24 18:12 1 TAB Hydralazine HCl 50 mg TID PO 10/11/24 22:00 10/13/24 13:29 50 MG Clonidine HCl 0.1 mg TID PO 10/11/24 22:00 10/13/24 13:29 0.1 MG Atorvastatin Calcium 40 mg HS PO 10/11/24 22:00 10/12/24 21:27 40 MG Amlodipine Besylate 10 mg DAILY PO 10/13/24 10:00 10/13/24 08:41 10 MG Metoprolol Succinate 100 mg DAILY PO 10/13/24 10:00 10/13/24 08:40 100 MG Pantoprazole Sodium 40 mg DAILY@0600 PO 10/13/24 01:15 10/13/24 04:59 40 MG objective GENERAL: Alert and oriented x 3. No acute distress. EYES: PERRL, EOMI. Anicteric. HENT: Moist mucous membranes. LUNGS: Clear to auscultation bilaterally. CARDIOVASCULAR: Regular rate and rhythm. ABDOMEN: Soft, nontender and nondistended. EXTREMITIES: No edema. NEUROLOGIC: No focal neurological deficits. SKIN: Warm, dry. laboratory and microbiology Laboratory Tests 10/11/24 05:44 Test 10/11/24 05:44 Range/Units Serum Glucose 140 H 74-106 mg/dL Problem List Hypertensive emergency. Rule out structural heart disease. Rule out renal artery stenosis. Hypertriglyceridemia. Chronic kidney disease. 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 Type 2 diabetes mellitus. Peripheral neuropathy. Asthma. Assessment/Plan Continued all current supportive medical care. Morphine and [place] for pain management. Amlodipine, Clonidine. Lipitor, Metoprolol. Diuretics with Lasix. Hydralazine. GI prophylactics. Additional plan as per the hospital course. Dietary Evaluation Review Comments: 1) CCHO 60 + cardiac diet 2) Refer [facility] on DC 3) Continue current plan of care Expected Outcomes/Goals: To meet >75% estimated needs Fu 3-5 days Plan discussed with: Patient KALEIGH ARAMBULA MD Oct 13, 2024 20:56
[2024-10-14] VITALS (8 sets, daily range): BP systolic 120–163; BP diastolic 55–69; PULSE 78–88; RESP 16–18; TEMP 98.1–99.1; O2SAT 95–99
--- NOTE | 2024-10-14 14:12 | DVHPN2 ---
Reviewed: Care Plan, H&P, Labs, Medications, Previous Orders, Radiology Changes from previous H/P or p: No Changes Objective Vitals Vital Signs Date Time Temp Pulse Resp B/P (MAP) Pulse Ox O2 Delivery O2 Flow Rate FiO2 10/14/24 13:00 159/65 10/14/24 12:57 98.3 88 18 97 98.3 10/14/24 08:11 Room Air* 0 21 Intake/Output Intake and Output 10/14/24 07:00 Intake Total 940 ml Output Total 850 ml Balance 90 ml Intake Oral 940 ml Output Urine Total 850 ml Medications Current Medications Medications Dose Ordered Sig/Sandy Route Start Time Stop Time Status Last Admin Dose Admin Labetalol HCl 10 mg Q4HPRN PRN IV 10/10/24 21:15 10/12/24 23:33 10 MG Diagnostic Test (Pha) 1 strip Q6HR 10/11/24 00:00 10/14/24 11:15 1 STRIP Insulin Human Regular Q6HR SC 10/11/24 00:00 10/14/24 11:21 4 UNITS Dextrose 50 ml UD PRN IV 10/10/24 21:15 Ondansetron HCl 4 mg Q4HP PRN IV 10/10/24 21:15 10/10/24 21:48 4 MG Morphine Sulfate 2 mg Q4HPRN PRN IV 10/10/24 21:15 10/14/24 11:16 2 MG Nitroglycerin 0.4 mg Q5MINP PRN SL 10/10/24 21:15 Morphine Sulfate 2 mg Q30M PRN IV 10/10/24 21:15 Amitriptyline HCl 25 mg HS PO 10/11/24 22:00 10/13/24 21:39 25 MG Clonazepam 0.25 mg Q12HP PRN PO 10/11/24 11:00 Furosemide 40 mg BIDD PO 10/11/24 18:00 10/13/24 04:59 40 MG Gabapentin 300 mg BID PO 10/11/24 22:00 10/14/24 09:07 300 MG Acetaminophen/ Hydrocodone Bitart 1 tab Q4HPRN PRN PO 10/11/24 11:45 10/14/24 00:24 1 TAB Hydralazine HCl 50 mg TID PO 10/11/24 22:00 10/14/24 13:00 50 MG Clonidine HCl 0.1 mg TID PO 10/11/24 22:00 10/14/24 13:00 0.1 MG Atorvastatin Calcium 40 mg HS PO 10/11/24 22:00 10/13/24 21:39 40 MG Amlodipine Besylate 10 mg DAILY PO 10/13/24 10:00 10/14/24 09:07 10 MG Metoprolol Succinate 100 mg DAILY PO 10/13/24 10:00 10/14/24 09:08 100 MG Pantoprazole Sodium 40 mg DAILY@0600 PO 10/13/24 01:15 10/14/24 05:18 40 MG Laboratory Results Laboratory Tests 10/11/24 05:44 Urinalysis Test 10/10/24 14:13 Urine Color Colorless (Yellow) Urine Clarity Clear (Clear) Urine pH 5.5 (5.0-9.0) Urine Specific [place] 1.007 (1.001-1.035) Urine Protein Negative (Negative) Urine Ketones Negative (Negative) Urine Blood Negative /uL (Negative) Urine Nitrite Negative (Negative) Urine Bilirubin Negative (Negative) Urine Urobilinogen Normal mg/dL (Negative) Urine Leukocyte Esterase 2+ /uL (Negative) Urine RBC <1 /hpf (0 - 4) Urine Microscopic WBC 6 /HPF (0-5) H Urine Squamous Epithelial Cells Few /hpf (<5) Urine Bacteria Few /hpf (None Seen) H Urine Glucose Normal mg/dL (Normal) Labs and/or images reviewed: Labs reviewed by me, Image(s) reviewed by me Assessment/Plan Assessment/Plan Acute right femoral neck fracture pain management morphine, [place], orthopedic Dr. 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
[2024-10-14] MEDS ORDERED: DOCUSATE SOD 100 MG CAP PO PRN (17:45)
--- NOTE | 2024-10-14 23:54 | DVHPN2 ---
Progress Note - Dictate Date Seen: Oct 14, 2024 Medical Necessity Reason Pt with a Central, PICC or Fol: No Subjective Patient was seen and evaluated in follow up. No overnight events. Patient reports acid reflux has resolved. GLUC 212. Telemetry reviewed. vital signs Vital Sign Date Time Temp Pulse Resp B/P (MAP) Pulse Ox O2 Delivery O2 Flow Rate FiO2 10/14/24 14:00 159/64 10/14/24 12:57 98.3 88 18 97 98.3 10/14/24 08:11 Room Air* 0 21 Total Intake and Output 10/13/24 10/13/24 10/14/24 15:00 23:00 07:00 Intake Total 700 ml 240 ml Output Total 400 ml 450 ml Balance 300 ml -210 ml medications Current Medications Medications Dose Ordered Sig/Sandy Route Start Time Stop Time Status Last Admin Dose Admin Labetalol HCl 10 mg Q4HPRN PRN IV 10/10/24 21:15 10/12/24 23:33 10 MG Diagnostic Test (Pha) 1 strip Q6HR 10/11/24 00:00 10/14/24 11:15 1 STRIP Insulin Human Regular Q6HR SC 10/11/24 00:00 10/14/24 11:21 4 UNITS Dextrose 50 ml UD PRN IV 10/10/24 21:15 Ondansetron HCl 4 mg Q4HP PRN IV 10/10/24 21:15 10/10/24 21:48 4 MG Morphine Sulfate 2 mg Q4HPRN PRN IV 10/10/24 21:15 10/14/24 11:16 2 MG Nitroglycerin 0.4 mg Q5MINP PRN SL 10/10/24 21:15 Morphine Sulfate 2 mg Q30M PRN IV 10/10/24 21:15 Amitriptyline HCl 25 mg HS PO 10/11/24 22:00 10/13/24 21:39 25 MG Clonazepam 0.25 mg Q12HP PRN PO 10/11/24 11:00 Furosemide 40 mg BIDD PO 10/11/24 18:00 10/13/24 04:59 40 MG Gabapentin 300 mg BID PO 10/11/24 22:00 10/14/24 09:07 300 MG Acetaminophen/ Hydrocodone Bitart 1 tab Q4HPRN PRN PO 10/11/24 11:45 10/14/24 00:24 1 TAB Hydralazine HCl 50 mg TID PO 10/11/24 22:00 10/14/24 13:00 50 MG Clonidine HCl 0.1 mg TID PO 10/11/24 22:00 10/14/24 13:00 0.1 MG Atorvastatin Calcium 40 mg HS PO 10/11/24 22:00 10/13/24 21:39 40 MG Amlodipine Besylate 10 mg DAILY PO 10/13/24 10:00 10/14/24 09:07 10 MG Metoprolol Succinate 100 mg DAILY PO 10/13/24 10:00 10/14/24 09:08 100 MG Pantoprazole Sodium 40 mg DAILY@0600 PO 10/13/24 01:15 10/14/24 05:18 40 MG objective GENERAL: Alert and oriented x 3. No acute distress. EYES: PERRL, EOMI. Anicteric. HENT: Moist mucous membranes. LUNGS: Clear to auscultation bilaterally. CARDIOVASCULAR: Regular rate and rhythm. ABDOMEN: Soft, nontender and nondistended. EXTREMITIES: No edema. NEUROLOGIC: No focal neurological deficits. SKIN: Warm, dry. laboratory and microbiology Laboratory Tests 10/11/24 05:44 Test 10/11/24 05:44 Range/Units Serum Glucose 140 H 74-106 mg/dL Problem List Hypertensive emergency. Rule out structural heart disease. Rule out renal artery stenosis. Hypertriglyceridemia. Chronic kidney disease. 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 Type 2 diabetes mellitus. Peripheral neuropathy. Asthma. Assessment/Plan Continued all current supportive medical care. Morphine and [place] for pain management. Amlodipine, Clonidine. Lipitor, Metoprolol. Diuretics with Lasix. Hydralazine. GI prophylactics. Additional plan as per the hospital course. Dietary Evaluation Review Comments: 1) CCHO 60 + cardiac diet 2) Refer Ad Clerk on DC 3) Continue current plan of care Expected Outcomes/Goals: To meet >75% estimated needs Fu 3-5 days Plan discussed with: Patient KALEIGH ARAMBULA MD Oct 14, 2024 16:34
[2024-10-15] VITALS (7 sets, daily range): BP systolic 151–174; BP diastolic 60–76; PULSE 78–97; RESP 16–18; TEMP 36.9; O2SAT 20–100
--- NOTE | 2024-10-15 12:36 | DVHPN2 ---
Reviewed: Care Plan, H&P, Labs, Medications, Previous Orders, Radiology Changes from previous H/P or p: No Changes Objective Vitals Vital Signs Date Time Temp Pulse Resp B/P (MAP) Pulse Ox O2 Delivery O2 Flow Rate FiO2 10/15/24 11:22 87 16 111/91 10/15/24 09:00 99.0 20 99.0 10/15/24 08:15 Room Air* 0 21 Intake/Output Intake and Output 10/15/24 07:00 Intake Total 1080 ml Output Total 1250 ml Balance -170 ml Intake Oral 1080 ml Output Urine Total 1250 ml Stool Total 0 ml # Bowel Movements 1 Medications Current Medications Medications Dose Ordered Sig/Sandy Route Start Time Stop Time Status Last Admin Dose Admin Labetalol HCl 10 mg Q4HPRN PRN IV 10/10/24 21:15 10/15/24 06:21 10 MG Diagnostic Test (Pha) 1 strip Q6HR 10/11/24 00:00 10/15/24 11:53 1 STRIP Insulin Human Regular Q6HR SC 10/11/24 00:00 10/15/24 11:50 4 UNITS Dextrose 50 ml UD PRN IV 10/10/24 21:15 Ondansetron HCl 4 mg Q4HP PRN IV 10/10/24 21:15 10/10/24 21:48 4 MG Morphine Sulfate 2 mg Q4HPRN PRN IV 10/10/24 21:15 10/15/24 10:18 2 MG Nitroglycerin 0.4 mg Q5MINP PRN SL 10/10/24 21:15 Morphine Sulfate 2 mg Q30M PRN IV 10/10/24 21:15 Amitriptyline HCl 25 mg HS PO 10/11/24 22:00 10/14/24 21:06 25 MG Clonazepam 0.25 mg Q12HP PRN PO 10/11/24 11:00 Furosemide 40 mg BIDD PO 10/11/24 18:00 10/15/24 05:20 40 MG Gabapentin 300 mg BID PO 10/11/24 22:00 10/15/24 08:48 300 MG Acetaminophen/ Hydrocodone Bitart 1 tab Q4HPRN PRN PO 10/11/24 11:45 10/15/24 00:19 1 TAB Hydralazine HCl 50 mg TID PO 10/11/24 22:00 10/15/24 05:20 50 MG Clonidine HCl 0.1 mg TID PO 10/11/24 22:00 10/14/24 21:06 0.1 MG Atorvastatin Calcium 40 mg HS PO 10/11/24 22:00 10/14/24 21:05 40 MG Amlodipine Besylate 10 mg DAILY PO 10/13/24 10:00 10/15/24 08:48 10 MG Metoprolol Succinate 100 mg DAILY PO 10/13/24 10:00 10/15/24 08:48 100 MG Pantoprazole Sodium 40 mg DAILY@0600 PO 10/13/24 01:15 10/15/24 05:20 40 MG Docusate Sodium 100 mg BIDPRN PRN PO 10/14/24 17:45 Laboratory Results Laboratory Tests 10/11/24 05:44 Urinalysis Test 10/10/24 14:13 Urine Color Colorless (Yellow) Urine Clarity Clear (Clear) Urine pH 5.5 (5.0-9.0) Urine Specific [place] 1.007 (1.001-1.035) Urine Protein Negative (Negative) Urine Ketones Negative (Negative) Urine Blood Negative /uL (Negative) Urine Nitrite Negative (Negative) Urine Bilirubin Negative (Negative) Urine Urobilinogen Normal mg/dL (Negative) Urine Leukocyte Esterase 2+ /uL (Negative) Urine RBC <1 /hpf (0 - 4) Urine Microscopic WBC 6 /HPF (0-5) H Urine Squamous Epithelial Cells Few /hpf (<5) Urine Bacteria Few /hpf (None Seen) H Urine Glucose Normal mg/dL (Normal) Labs and/or images reviewed: Labs reviewed by me, Image(s) reviewed by me Assessment/Plan Assessment/Plan Acute right femoral neck fracture pain management morphine, [place], orthopedic Dr. 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
--- NOTE | 2024-10-15 14:19 | DVHDS2 ---
Discharge Summary Date of Admission Oct 10, 2024 at 21:06 Date of Discharge: Oct 15, 2024 Admitting Diagnosis Right femoral neck fracture Wounds: Right femoral neck fracture Labs/Diagnostic Data: Laboratory Results Test 10/15/24 11:31 10/11/24 05:44 10/10/24 21:31 10/10/24 14:13 POC Glucose 226 mg/dl (70-106) White Blood Count 8.7 10^3/uL (4.4-10.8) Red Blood Count 3.87 10^6/uL (4.0-5.20) Hemoglobin 11.1 g/dL (12.2-16.2) Hematocrit 32.8 % (36.0-46.0) Mean Corpuscular Volume 84.8 fL (80.0-100.0) Mean Corpuscular Hemoglobin 28.7 pg (28.0-32.0) Mean Corpuscular Hemoglobin Concent 33.8 g/dL (32.0-36.0) Red Cell Distribution Width 14.5 % (11.8-14.3) Platelet Count 343 10^3/uL (140-450) Mean Platelet Volume 7.7 fL (6.9-10.8) Neutrophils (%) (Auto) 76.2 % (37.0-80.0) Lymphocytes (%) (Auto) 15.6 % (10.0-50.0) Monocytes (%) (Auto) 7.8 % (0.0-12.0) Eosinophils (%) (Auto) 0.1 % (0.0-7.0) Basophils (%) (Auto) 0.3 % (0.0-2.0) Neutrophils # (Auto) 6.6 10 ^3/uL (1.6-8.6) Lymphocytes # (Auto) 1.4 10 ^3/uL (0.4-5.4) Monocytes # (Auto) 0.7 10 ^3/uL (0-1.3) Eosinophils # (Auto) 0 10 ^3/uL (0-0.8) Basophils # (Auto) 0 10 ^3/uL (0-0.2) Nucleated Red Blood Cells 0.0 % Sodium Level 137 mmol/L (136-145) Potassium Level 3.3 mmol/L (3.5-5.1) Chloride Level 107 mmol/L (98-107) Carbon Dioxide Level 20 mmol/L (20-31) Anion Gap 10 (5-15) Blood Urea Nitrogen 23 mg/dL (9-23) Creatinine 2.13 mg/dL (0.550-1.02) Glomerular Filtration Rate Calc 25 mL/min (>90) BUN/Creatinine Ratio 10.8 (10.0-20.0) Serum Glucose 140 mg/dL (74-106) Hemoglobin A1c 6.4 % A1C (<5.7) Calcium Level 9.6 mg/dL (8.7-10.4) Magnesium Level 2.0 mg/dL (1.6-2.6) Total Bilirubin 0.2 mg/dL (0.2-1.0) Aspartate Amino Transferase (AST) 9 U/L (13-40) Alanine Aminotransferase (ALT) 13 U/L (7-40) Alkaline Phosphatase 72 U/L (46-116) Total Protein 7.1 g/dL (5.7-8.2) Albumin 4.4 g/dL (3.2-4.8) Triglycerides Level 231 mg/dL (< 150) Cholesterol Level 130 mg/dL (< 200) LDL Cholesterol 51 mg/dL (< 100) HDL Cholesterol 42 mg/dL (40-59) Thyroid Stimulating Hormone (TSH) 1.69 uIU/mL (0.55-4.78) Prothrombin Time 10.3 sec (9.3-11.8) Prothrombin Time INR 0.97 (0.9-1.15) Activated Partial Thromboplast Time 26.6 SEC (24.5-34.5) Urine Color Colorless (Yellow) Urine Clarity Clear (Clear) Urine pH 5.5 (5.0-9.0) Urine Specific [place] 1.007 (1.001-1.035) Urine Protein Negative (Negative) Urine Ketones Negative (Negative) Urine Blood Negative /uL (Negative) Urine Nitrite Negative (Negative) Urine Bilirubin Negative (Negative) Urine Urobilinogen Normal mg/dL (Negative) Urine Leukocyte Esterase 2+ /uL (Negative) Urine RBC <1 /hpf (0 - 4) Urine Microscopic WBC 6 /HPF (0-5) Urine Squamous Epithelial Cells Few /hpf (<5) Urine Bacteria Few /hpf (None Seen) Urine Glucose Normal mg/dL (Normal) Other Laboratory Tests 10/11/24 05:44 Brief Hx & Hospital Course: 88-year-old female with a history of anxiety arthritis asthma CKD COPD CVA depression diabetes hypertension hyperlipidemia GERD history of to L-spine surgeries on chronic pain management had a mechanical fall and came to the hospital admitted for right femoral neck fracture seen by orthopedic Dr. Sanchez advised conservative management patient was given pain medications comorbid conditions appropriately managed. Ejection fraction 65 percent. Being discharged to half-way facility for rehab Consults/Reason for consult Dr. Jimenez orthopedic Operations or Procedures None Condition at Discharge: Fair Final Diagnosis/Problems List Acute right femoral neck fracture pain management morphine, [place], orthopedic Dr. Torres advised conservative management Mechanical fall Anxiety Arthritis Asthma CKD COPD History of CVA History of depression Diabetes UTI Hypertensive urgency Hyperlipidemia GERD History of two L spine surgeries and to C-spine surgeries Echo 65 % ejection fraction Discharge Disposition: Halfway Facility Discharge Instruct/Medications Diet: Cardiac 2g Na,low cholest Activity: Light activity Follow Up/Referral: Follow up with the half-way Medications: see list 35 (Time Taken for discharge summary 35 minutes) Discharge Statement: "Patient was advised to return to the ER or call 911 if any headaches, dizziness, shortness of breath, chest pain, abdominal pain, bleeding, fevers, or worsening of medical condition. Patient was counseled about treatment plan, medications, possible side effects, patientverbalized understanding. All questions were answered to the best of my ability. This discharge took greater then 30 minutes in planning, reviewing documentation, counseling the patient, and discussing with other team members." ASSESSMENT ASSESSMENT Hospital Course Improved Assessment Acute right femoral neck fracture pain management [place], orthopedic Dr. Torres advised conservative management Mechanical fall Anxiety Arthritis Asthma CKD COPD History of CVA History of depression Diabetes UTI Hypertensive urgency Hyperlipidemia GERD History of two L spine surgeries and to C-spine surgeries Echo 65 % ejection fraction Date of Service: Oct 15, 2024 Billing Provider: COTY TOWNSEND MD Common Visit Codes: [id number] DISCH DAY >30min COTY TOWNSEND MD Oct 15, 2024 14:19
--- NOTE | 2024-10-15 23:50 | DVHPN2 ---
Progress Note - Dictate Date Seen: Oct 15, 2024 Medical Necessity Reason Pt with a Central, PICC or Fol: No Subjective Patient was seen and evaluated in follow up. Patient has no new complaints at this time. Patient denies any cardiac symptoms. Patient is cardiac stable for discharge. Telemetry reviewed. vital signs Vital Sign Date Time Temp Pulse Resp B/P (MAP) Pulse Ox O2 Delivery O2 Flow Rate FiO2 10/15/24 17:50 151/76 10/15/24 17:00 98.9 87 18 100 98.9 10/15/24 08:15 Room Air* 0 21 Total Intake and Output 10/14/24 10/14/24 10/15/24 15:00 23:00 07:00 Intake Total 200 ml 640 ml 240 ml Output Total 550 ml 700 ml Balance 200 ml 90 ml -460 ml objective GENERAL: Alert and oriented x 3. No acute distress. EYES: PERRL, EOMI. Anicteric. HENT: Moist mucous membranes. LUNGS: Clear to auscultation bilaterally. CARDIOVASCULAR: Regular rate and rhythm. ABDOMEN: Soft, nontender and nondistended. EXTREMITIES: No edema. NEUROLOGIC: No focal neurological deficits. SKIN: Warm, dry. laboratory and microbiology Laboratory Tests 10/11/24 05:44 Test 10/11/24 05:44 Range/Units Serum Glucose 140 H 74-106 mg/dL Problem List Hypertensive emergency. Rule out structural heart disease. Rule out renal artery stenosis. Hypertriglyceridemia. Chronic kidney disease. 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 Type 2 diabetes mellitus. Peripheral neuropathy. Asthma. Assessment/Plan Continued all current supportive medical care. Morphine and [place] for pain management. Amlodipine, Clonidine. Lipitor, Metoprolol. Diuretics with Lasix. Hydralazine. GI prophylactics. Additional plan as per the hospital course. Dietary Evaluation Review Comments: 1) CCHO 60 + cardiac diet 2) Refer Nutrition Teacher on DC 3) Continue current plan of care Expected Outcomes/Goals: To meet >75% estimated needs Fu 3-5 days Plan discussed with: Patient KALEIGH ARAMBULA MD Oct 15, 2024 23:49
== END 2024-10-15 18:30 | DRG 536 ==
LOC: ER 11:53 → EDBD 11:53 → OVERFLOW 21:06 → TELE-WESTW 10-11 01:54
PROVIDERS: ADMIT Family Medicine; ATTEND Family Medicine
DX: S72.111A Displaced fracture of greater trochanter of right femur, initial encounter for closed fracture (principal); N39.0 Urinary tract infection, site not specified; I16.1 Hypertensive emergency; E11.22 Type 2 diabetes mellitus with diabetic chronic kidney disease; F41.9 Anxiety disorder, unspecified; K21.9 Gastro-esophageal reflux disease without esophagitis; E11.40 Type 2 diabetes mellitus with diabetic neuropathy, unspecified; I12.9 Hypertensive chronic kidney disease with stage 1 through stage 4 chronic kidney disease, or unspecified chronic kidney disease; N18.9 Chronic kidney disease, unspecified; J44.9 Chronic obstructive pulmonary disease, unspecified; F32.A Depression, unspecified; I44.0 Atrioventricular block, first degree; E78.1 Pure hyperglyceridemia; W01.0XXA Fall on same level from slipping, tripping and stumbling without subsequent striking against object, initial encounter; Z79.891 Long term (current) use of opiate analgesic; Z79.1 Long term (current) use of non-steroidal anti-inflammatories (NSAID); Z79.899 Other long term (current) drug therapy; Z79.4 Long term (current) use of insulin; Z85.828 Personal history of other malignant neoplasm of skin; Z82.49 Family history of ischemic heart disease and other diseases of the circulatory system; Z80.1 Family history of malignant neoplasm of trachea, bronchus and lung; Z87.891 Personal history of nicotine dependence; Z86.73 Personal history of transient ischemic attack (TIA), and cerebral infarction without residual deficits; Y93.89 Activity, other specified; Y92.89 Other specified places as the place of occurrence of the external cause; Y99.8 Other external cause status; Z90.710 Acquired absence of both cervix and uterus
CPT/HCPCS: 36415; 71045; 71101; 72131; 73700; 80048; 80053; 80061; 81001; 82962; 83036; 83735; 84443; 85025; 85610; 85730; 86850; 86900; 86901; 93005; 93306; 93975; 96365; 96375; 97110; 97116; 97163; 97530; 99291; G0378; J1815; J2003; J2405

== ENCOUNTER 2024-10-26 14:34 | Inpatient (IN) | payer MEDICARE, MEDICAID ==
[~2024-10-26] VITALS: Ht 160 cm; Wt 64.4 kg
[~2024-10-26 14:34] MED LIST changes: +AMIT25TA20 PO; -FLUO20CA19 PO; +GLIP5TAB21 PO; -INSLANTI SC; +LURA40TA2 PO; +TIZA4TAB9 PO; -ZOLP5TAB5 PO
--- NOTE | 2024-10-26 14:53 | ED.PDOC ---
History of Present Illness HPI Comments 68F BIBA w/ prior MHx of Anxiety, Arthritis, COPD, Depression, GERD, Asthma, Neuropathy w/ DM, HTN, High Lipids, CVAx2;SHx of Hysterectomy, Bilateral carpal Tunnels Sx, 2 Spine Sx, 1 neck Sx and the c/c of hip pain. Pt reports on falling 2 weeks ago and broke her right upper femur. Pt went to [facility] for rehab but signed herself out due from "improper care". Pt notes that today she heard a pop from her right hip and has been unable to bear weight to the right leg from the pain. Family Hx of Cancer. Denies chills, fever, N/V/D, SOB, CP or other associated symptom's, modifiers, or recent injuries or sick contact at this time. Time Seen by MD: 14:50 Primary Care Provider: TYESHA Reviewed Notes: Nurses Notes, Powerbuilder Notes, Medications, Allergies Allergies: Coded Allergies: NO KNOWN ALLERGIES (Unverified , 09/29/20) Home Meds Active Scripts Cefdinir (Cefdinir) 300 Mg Cap, 1 CAP PO BID, #14 CAP Prov:FILI CONTRERAS MD 10/10/23 Clonidine Hydrochloride (Clonidine Hcl) 0.3 Mg Tab, 1 TAB PO BID, #120 TAB Prov:FILI CONTRERAS MD 10/10/23 Hydralazine HCl (Hydralazine HCl) 25 Mg Tab, 50 MG PO TID, #120 TAB Prov:FILI CONTRERAS MD 10/10/23 Furosemide (Lasix) 40 Mg Tab, 40 MG PO BID, #30 TAB Prov:JAYDEN SHEIKH 11/04/22 Atenolol (Atenolol) 100 Mg Tab, 100 MG PO DAILY for 30 Days, #30 MG Prov:FRED STEPHEN MD 07/27/21 Amlodipine Besylate (Amlodipine Besylate) 10 Mg Tab, 1 TAB PO BID, #30 TAB 5 Refills Prov:FILI CONTRERAS MD 09/13/20 Reported Medications Lurasidone Hydrochloride (LATUDA) 40 Mg Tab, 1 TAB PO QPM, #30 TAB 1 Refill 10/11/24 Glipizide (Glipizide) 5 Mg Tab, 1 TAB PO BID, #60 TAB 3 Refills 10/11/24 Tizanidine Hydrochloride (Zanaflex) 4 Mg Tab, 1 TAB PO QPM, #30 TAB 10/11/24 Amitriptyline Hcl (Amitriptyline Hcl) 25 Mg Tab, 1 TAB PO QPM, #30 TAB 5 Refills 10/11/24 Hydrocodone-Acetaminophen (Hydrocodone Bitartrate/AC 10-325 mg) 1 Tab Tab, 1 TAB PO Q8HPRN PRN for PAIN SCALE 7 THRU 10, TAB 10/09/23 Clonazepam (Clonazepam) 1 Mg Tab, 0.25 TAB PO BID, #60 TAB 10/09/23 Cholecalciferol (VITAMIN D-3) 2,000 Unit Tab, 2000 UNIT PO DAILY, TAB 12/28/14 Omeprazole (PRILOSEC) 20 Mg Cap, 1 CAP PO DAILY, #90 CAP 2 Refills 06/05/14 Gabapentin (Gabapentin) 300 Mg Cap, 1 CAP PO BID, #90 CAP 1 Refill 06/05/14 Information Source: Patient, Emergency Med Personnel Mode of Arrival: EMS Severity: Moderate Timing: Minutes Duration: Since onset, Minutes Prehospital treatment: None Past Medical History PAST MEDICAL HISTORY: Anxiety, Arthritis, Asthma, CKF (stage 4), COPD, CVA (x2 ), Depression, DM (Neuropathy w/ DM), GERD, High Lipids, HTN Surgical History: Hysterectomy Surgical History (Other): 2 spine Sx, 1 neck Sx, bilat carpal tunnel BACK TUFTER History: No Pertinent BACK TUFTER History Family History Family History: Reviewed,noncontributory to illness, Family hx of Cancer Social History Smoker: Non-Smoker Alcohol: Denies ETOH Use Drugs: Denies Drug Use Lives In: Home Constitutional: denies: chills, diaphoresis, fatigue, fever, malaise, sweats, weakness, others EENTM: denies: blurred vision, double vision, ear bleeding, ear discharge, ear drainage, ear pain, ear ringing, eye pain, eye redness, hearing loss, mouth pain, mouth swelling, nasal discharge, nose bleeding, nose congestion, nose pain, photophobia, tearing, throat pain, throat swelling, voice changes, others Respiratory: denies: cough, hemoptysis, orthopnea, SOB at rest, shortness of breath, SOB with excertion, stridor, wheezing, others Cardiovascular: denies: chest pain, dizzy spells, diaphoresis, Dyspnea on exertion, edema, irregular heart beat, left arm pain, lightheadedness, palpitations, PND, syncope, others Gastrointestinal: denies: abdomen distended, abdominal pain, blood streaked bowels, constipated, diarrhea, dysphagia, difficulty swallowing, hematemesis, melena, nausea, poor appetite, poor fluid intake, rectal bleeding, rectal pain, vomiting, others Genitourinary: denies: abnormal vagina bleeding, burning, dyspareunia, dysuria, flank pain, frequency, hematuria, incontinence, pain, , vagina discharge, urgency, others Neurological: denies: dizziness, fainting, headache, left sided numbness, left sided weakness, numbness, paresthesia, pre-existing deficit, right sided numbness, right sided weakness, seizure, speech problems, tingling, tremors, weakness, others Musculoskeletal: reports: others (Hip Pain); denies: back pain, gout, joint pain, joint swelling, muscle pain, muscle stiffness, neck pain Integumetry: denies: bruises, change in color, change in hair/nails, dryness, laceration, lesions, lumps, rash, wounds, others Allergic/Immunocompromised: denies: Difficulty Healing, Frequent Infections, Hives, Itching, others Hematologic/Lymphatic: denies: anemia, blood clots, easy bleeding, easy bruising, swollen glands, others Endocrine: denies: excessive hunger, excessive sweating, excessive thirst, excessive urination, flushing, intolerance to cold, intolerance to heat, unexplained weight gain, unexplained weight loss, others Psychiatric: denies: anxiety, bipolar disorder, depression, hopeless, panic disorder, schizophrenia, sleepless, suicidal, others All Other Systems: Reviewed and Negative Physical Exam General Appearance: Moderate Distress HEENT: Normal ENT Inspection, Pharynx Normal, TMs Normal Neck: Full Range of Motion, Non-Tender, Normal, Normal Inspection Respiratory: Chest Non-Tender, Lungs Clear, No Accessory Muscle Use, No Respiratory Distress, Normal Breath Sounds Cardiovascular: No Edema, No JVD, No Murmur, No Gallop, Normal Peripheral Pulses, Regular Rate/Rhythm Breast Exam: Deferred Gastrointestinal: No Organomegaly, Non Tender, No Pulsatile Mass, Normal Bowel Sounds, Soft Genitalia: Deferred Pelvic: Deferred Rectal: Deferred Extremities: No calf tenderness, Normal capillary refill, Normal inspection, Normal range of motion, Non-tender, No pedal edema Musculoskeletal : Location: Right Extremity Location: Hip Apperance: Limited ROM, Tenderness: Moderate Neurologic: Alert, butadiene convertor operator II-XII nml as Tested, No Motor Deficits, Normal Affect, Normal Mood, No Sensory Deficits Cerebellar Function: Normal Reflexes: Normal Skin: Dry, Normal Color, Warm Lymphatic: No Adenopathy Was a procedure done? Was a procedure done?: No Differential Dx Considerations may include: Fracture, strain, contusion X-Ray, Labs, Meds, VS Vital Signs Date Time Temp Pulse Resp B/P (MAP) Pulse Ox O2 Delivery O2 Flow Rate FiO2 10/26/24 20:28 77 17 137/63 (87) 97 10/26/24 20:27 76 17 137/63 10/26/24 20:00 98.4 87 19 176/75 (108) 97 98.4 10/26/24 19:35 78 16 95 Room Air* 0 21 10/26/24 19:11 170/71 10/26/24 19:00 170/71 10/26/24 18:39 192/76 10/26/24 18:00 192/76 10/26/24 18:00 85 16 192/76 (114) 98 10/26/24 17:00 86 16 98 Room Air* 0 21 10/26/24 16:30 87 16 200/84 (122) 98 10/26/24 16:00 98.2 87 16 173/73 (106) 97 98.2 10/26/24 15:46 87 16 197/75 10/26/24 15:16 102 16 184/87 10/26/24 14:40 98.1 84 16 157/73 (101) 96 98.1 Current Medications Medications (Trade) Dose Ordered Sig/Sandy Route Start Time Stop Time Status Last Admin Ondansetron HCl (Zofran) 4 mg ONCE ONCE IV 10/26/24 15:00 10/26/24 15:01 DC 10/26/24 15:15 Morphine Sulfate 4 mg ONCE ONCE IV 10/26/24 15:00 10/26/24 15:01 DC 10/26/24 15:16 Clonidine HCl (Catapres Tablet) 0.2 mg ONCE ONCE PO 10/26/24 18:00 10/26/24 18:01 DC 10/26/24 18:00 Clonidine HCl (Catapres Tablet) 0.2 mg ONCE ONCE PO 10/26/24 18:15 10/26/24 18:16 DC 10/26/24 18:39 Morphine Sulfate 4 mg ONCE ONCE IV 10/26/24 19:45 10/26/24 20:13 DC 10/26/24 20:27 Ondansetron HCl (Zofran) 4 mg ONCE ONCE IV 10/26/24 19:45 10/26/24 20:13 DC 10/26/24 20:26 IMPRESSION: 1. Comminuted displaced intertrochanteric fracture proximal right femur with involvement of the greater and lesser trochanter. 2. Pedicle screws and rods in place at L4-L5 and S1. HS:Y All CT scans at this medical facility are performed using dose modulation techniques as appropriate to a performed exam including the following: Automated exposure control was utilized; adjustment of the MA and/or KV according to patient size; and use of iterative reconstruction technique. Hep-Lock was established The patient was given morphine 4 mg IV push for the pain The patient was given Zofran 4 mg IV push for the nausea The pain has been somewhat persistent so we did repeat the dose of the morphine and Zofran The patient was significantly hypertensive so was given clonidine 0.2 mg p.o. The patient is being admitted at this time. Images Reviewed?: Images reviewed and evaluated by me Time of 1ST Reevaluation: 15:20 Reevaluation 1ST: Unchanged Patient Education/Counseling: Diagnosis, Treatment, Prognosis Family Education/Counseling: No Family Present Departure 1 Departure Time of Disposition: 20:50 Impression: Primary Impression: Accelerated hypertension Additional Impression: Intertrochanteric fracture Qualified Codes: S72.141A - Displaced intertrochanteric fracture of right femur, initial encounter for closed fracture Disposition: ADMITTED INPATIENT Admit to: [facility] Condition: Fair Critical Care Note Critical Care Time?: No Stability Stability form required: Yes Unstable for transfer: Telemetry monitoring (Telemetry monitoring required), ED Physician Assesment (Clinical assesment) Heart Score Heart Score: Heart Score Response (Comments) Value History N/A 0 EKG N/A 0 Age N/A 0 Risk Factors N/A 0 Troponin N/A 0 Total 0 I personally scribed for DAMION ROWE MD ([employer]) on 10/26/24 at 14:53. Electronically submitted by Miguel Angel Knutson ([employer]). I personally scribed for DAMION ROWE MD ([employer]) on 10/26/24 at 15:34. Electronically submitted by Miguel Angel Knutson ([employer]). DAMION ROWE MD October 26, 2024 14:53
[2024-10-26] MEDS: ONDANSETRON HCL 4 MG/2 ML VIAL IV ONE ×2 (15:15→20:26)
[2024-10-26] MEDS: MORPHINE SULFATE 4 MG/ML SYR/VIAL IV ONE ×2 (15:16→20:27)
--- NOTE | 2024-10-26 15:28 | DVH ---
Exam: CT PELVIS WO CONTRAST History: right hip pain Comparison Study: None Technique: Multidetector CT of the pelvis was performed from iliac crests to pubic symphysis after th e administration of intravenous contrast was administered during this examination. Portal venous imag ing was obtained. Axial, coronal and sagittal multiplanar reformats were performed by the technologis t on a separate workstation. Radiation Dose : CT Dose: CTDI volume is 15.96 mGy. Dose-length product is 555.08 mGy*cm Findings: Visualized bowel: No bowel wall thickening or dilatation. Ascites: Absent Lymphadenopathy: No pelvic or mesenteric lymphadenopathy. Vasculature: The visualized abdominal aorta is normal in size and caliber. Abdominal and pelvic vesse ls demonstrate normal enhancement. Pelvic Organs: Unremarkable Musculoskeletal: No acute osseous abnormality. Pedicle screws and rods in place at L5-S1 with interve rtebral spacer. Displaced comminuted intertrochanteric fracture with involvement of the greater and l usha trochanter. Proximal right femur. Bladder: Unremarkable Soft tissues: Unremarkable. IMPRESSION: 1. Comminuted displaced intertrochanteric fracture proximal right femur with involvement of the great er and lesser trochanter. 2. Pedicle screws and rods in place at L4-L5 and S1. HS:Y All CT scans at this medical facility are performed using dose modulation techniques as appropriate t o a performed exam including the following: Automated exposure control was utilized; adjustment of th e MA and/or KV according to patient size; and use of iterative reconstruction technique.
[2024-10-26 17:00] VITALS: PULSE 86; RESP 16; O2SAT 98
[2024-10-26] MEDS: cloNIDine HCL 0.1 MG TAB PO ONE ×2 (18:00→18:39)
[2024-10-26 19:35] VITALS: PULSE 78; RESP 16; O2SAT 95
[2024-10-26 21:27] LABS: Urine Bacteria FEW /hpf (None Seen); Urine Blood Negative /uL (Negative); Urine Clarity Clear (Clear); Urine Color Light-Yellow (Yellow); Urine Protein, UAD Negative (Negative); Urine Specific Gravity 1.005 (1.001-1.035); Urine Squamous Epithelial Cell None Seen /hpf (<5); Urine Urobilinogen Normal (Negative); Urine WBC 4 /HPF (0-5); Urine pH 5.5 (5.0-9.0)
[2024-10-26] MEDS ORDERED: ACETAMINOPHEN 325 MG TAB PO PRN (21:30)
[2024-10-26] MEDS ORDERED: DEXTROSE (50%) 50ML SYRG IV PRN (21:30)
[2024-10-26] MEDS ORDERED: ONDANSETRON HCL 4 MG/2 ML VIAL IV PRN (21:30)
[2024-10-26] MEDS ORDERED: DOCUSATE SOD 100 MG CAP PO PRN (21:30)
[2024-10-26 21:44] LABS: Basophils # (auto) 0.1 10 ^3/uL (0-0.2); Eosinophils # (auto) 0.2 10 ^3/uL (0-0.8); Hemoglobin 9.1 g/dL (12.2-16.2); Monocytes # (auto) 0.7 10 ^3/uL (0-1.3); Monocytes % (auto) 11.2 % (0.0-12.0); Neutrophils # (auto) 3.5 10 ^3/uL (1.6-8.6)
[2024-10-26 21:46] LABS: Basophils % (auto) 1.1 % (0.0-2.0); Eosinophils % (auto) 3.4 % (0.0-7.0); Hematocrit 27.6 % (36.0-46.0); Lymphocytes # (auto) 1.6 10 ^3/uL (0.4-5.4); Lymphocytes % (auto) 26.2 % (10.0-50.0); Mean Corpuscular Hemoglobin 27.7 pg (28.0-32.0); Mean Corpuscular Hgb Conc. 32.9 g/dL (32.0-36.0); Mean Corpuscular Volume 84.3 fL (80.0-100.0); Neutrophils % (auto) 58.1 % (37.0-80.0); Nucleated Red Blood Cells % 0.2 %; Platelet Count (auto) 563 10^3/uL (140-450); Red Blood Cells 3.27 10^6/uL (4.0-5.20); Red Cell Distribution Width 13.7 % (11.8-14.3)
[2024-10-26 21:53] LABS: Alanine Aminotransferase 16 U/L (7-40); Anion Gap 8 (5-15); BUN/Creatinine Ratio 15.6 (10.0-20.0); Calcium 9.6 mg/dL (8.7-10.4); Carbon Dioxide 23 mmol/L (20-31); Potassium 3.6 mmol/L (3.5-5.1); Sodium 141 mmol/L (136-145); Total Protein 6.5 g/dL (5.7-8.2)
[2024-10-26 21:54] LABS: Albumin 3.9 g/dL (3.2-4.8)
[2024-10-26 22:00] LABS: Alkaline Phosphatase 166 U/L (46-116); Aspartate Aminotransferase 10 U/L (13-40); Bilirubin, Total 0.2 mg/dL (0.2-1.0); Blood Urea Nitrogen 28 mg/dL (9-23); Chloride 110 mmol/L (98-107); Glucose 111 mg/dL (74-106)
[2024-10-26] MEDS: SODIUM CHLORIDE 0.9% 1,000 ML IV SCH (22:15)
[2024-10-26] MEDS: ACCU-CHEK COMFORT CURVE STRIP VI SCH (22:45)
[2024-10-26] MEDS: InsuLIN REG 1unit/0.01ml Soln (100units/ml) SC SCH (22:45)
[2024-10-26] MEDS: GABAPENTIN 300 MG CAP PO SCH (22:52)
[2024-10-26] MEDS ORDERED: MORPHINE SULFATE INJ 2 MG/ml SYRG IV PRN (23:15)
[2024-10-26] MEDS ORDERED: NITROGLYCERIN 0.4 MG SL TAB SL PRN (23:15)
--- NOTE | 2024-10-26 23:15 | DVHHP2 ---
History of Present Illness Reason for Visit: Intertrochanteric fracture History of Present Illness The patient is a 68-year-old female with multiple past medical history including depression, diabetes mellitus, anxiety, and hypertension who presented to [facility] ED with complaint of right hip pain. Patient went to [facility] for rehab but signed herself out due from "improper care". notes that today she heard a pop from her right hip and has been unable to bear weight to the right leg due to the pain. Patient was seen and evaluated in the ED, laboratory data shows WBC 6.0, hemoglobin 9.1, hematocrit 27.6, platelets 563, sodium 141, potassium 3.6, BUN 28, creatinine 1.79, glucose 111, AST 10, ALT 16, blood pressure 200/84 trending down to 137/63, heart rate 76, temperature 98.4 F, O2 saturation 97% on room air. Urinalysis positive for urinary tract infection. Pelvis CT revealing comminuted displaced intratrochanteric fracture proximal rig ht femur with involvement of the greater and lesser trochanter. Patient was started on IV antibiotic regimen Rocephin, please see medication orders section in the computer. On my assessment, patient denied chest pain, no headache, no dizziness, no diaphoresis, no shortness of breath, no nausea, no vomiting, no fever, no chills. Patient was admitted for further evaluation and medical management. Past Medical History Anxiety, Arthritis, Asthma, CKF (stage 4), COPD, CVA (x2), Depression, DM (Neuropathy w/ DM), GERD, High Lipids, HTN Past Surgical History Hysterectomy, 2 spine Sx, 1 neck Sx, bilateral carpal tunnel surgery Family History Reviewed, noncontributory to the management of this case. Past Social History The patient lives at home, denies smoking, alcohol or illicit drugs abuse. Review of Systems Constitutional: No: Fever, Chills, Sweats, Weakness, Malaise, Other Eyes: No: Pain, Vision change, Conjunctivae inflammation, Eyelid inflammation, Other, Redness ENT: No: Ear pain, Ear discharge, Nose pain, Nose discharge, Nose congestion, Mouth pain, Mouth swelling, Throat pain, Throat swelling, Other Respiratory: No: Cough, Dry, Shortness of breath, SOB with excertion, Wheezing, Hemoptysis, Pleuritic Pain, Sputum, Wheezing, Other Cardiovascular: No: Chest Pain, Palpitations, Orthopnea, Paroxysmal Noc. Dyspnea, Edema, Lt Headedness, Other Gastrointestinal: No: Nausea, Vomiting, Abdominal Pain, Diarrhea, Constipation, Melena, Hematochezia, Other Genitourinary: No Dysuria, No Frequency, No Incontinence, No Hematuria, No Retention, No Other Musculoskeletal: other (Hip pain); No: neck pain, shoulder pain, arm pain, back pain, hand pain, leg pain, foot pain Skin: No: Rash, Lesions, Jaundice, Bruising, Other Neurological: No: Weakness, Numbness, Incoordination, Change in speech, Confusion, Seizures, Other Allergies: Coded Allergies: NO KNOWN ALLERGIES (Unverified , 09/29/20) Medications Current Medications Medications Dose Ordered Sig/Sandy Route Start Time Stop Time Status Last Admin Dose Admin Hydralazine HCl 10 mg Q6HP PRN IV 10/26/24 21:30 Gabapentin 300 mg BID PO 10/26/24 22:00 10/26/24 22:52 300 MG Amlodipine Besylate 10 mg DAILY PO 10/27/24 10:00 Atenolol 50 mg DAILY PO 10/27/24 10:00 Diagnostic Test (Pha) 1 strip ACHS 10/26/24 22:00 10/26/24 22:45 1 STRIP Insulin Human Regular ACHS SC 10/26/24 22:00 Dextrose 50 ml UD PRN IV 10/26/24 21:30 Sodium Chloride 1,000 ml @ 60 mls/hr [id number] IV 10/26/24 21:30 10/26/24 22:15 60 MLS/HR Acetaminophen/ Hydrocodone Bitart 1 tab Q4HP PRN PO 10/26/24 21:30 Ondansetron HCl 4 mg Q4HP PRN IV 10/26/24 21:30 Docusate Sodium 100 mg BIDPRN PRN PO 10/26/24 21:30 Acetaminophen 650 mg Q6HP PRN PO 10/26/24 21:30 Morphine Sulfate 2 mg Q4HPRN PRN IV 10/26/24 21:30 Exam Vital Signs Vital Signs Date Time Temp Pulse Resp B/P (MAP) Pulse Ox O2 Delivery O2 Flow Rate FiO2 10/26/24 20:57 75 17 160/54 10/26/24 20:28 97 10/26/24 20:00 98.4 98.4 10/26/24 19:35 Room Air* 0 21 General Appearance: Alert, Oriented X3, Cooperative, No acute distress HEENT: Atraumatic, PERRLA, EOMI, Mucous membr. moist/pink Respiratory: Clear to auscultation, Normal air movement Cardiovascular: Regular rate, Normal S1, Normal S2, No murmurs Abdominal: Normal bowel sounds, Soft, No tenderness, No hepatospenomegaly, No masses Extremities: No clubbing, No cyanosis, No edema, Normal pulses, Other (Hip tenderness) Skin: No rashes, No breakdown, No significant lesion Neuro: Normal speech, Normal tone, Sensation intact, Cranial nerves 3-12 NL, Reflexes 2+ Psych/Mental Status: Mental status NL, Mood NL Labs/Xrays Labs Test 10/26/24 22:47 10/26/24 21:29 10/26/24 20:45 Range/Units POC Glucose 117 H 70-106 mg/dl White Blood Count 6.0 4.4-10.8 10^3/uL Red Blood Count 3.27 L 4.0-5.20 10^6/uL Hemoglobin 9.1 L 12.2-16.2 g/dL Hematocrit 27.6 L 36.0-46.0 % Mean Corpuscular Volume 84.3 80.0-100.0 fL Mean Corpuscular Hemoglobin 27.7 L 28.0-32.0 pg Mean Corpuscular Hemoglobin Concent 32.9 32.0-36.0 g/dL Red Cell Distribution Width 13.7 11.8-14.3 % Platelet Count 563 H 140-450 10^3/uL Mean Platelet Volume 6.4 L 6.9-10.8 fL Neutrophils (%) (Auto) 58.1 37.0-80.0 % Lymphocytes (%) (Auto) 26.2 10.0-50.0 % Monocytes (%) (Auto) 11.2 0.0-12.0 % Eosinophils (%) (Auto) 3.4 0.0-7.0 % Basophils (%) (Auto) 1.1 0.0-2.0 % Neutrophils # (Auto) 3.5 1.6-8.6 10 ^3/uL Lymphocytes # (Auto) 1.6 0.4-5.4 10 ^3/uL Monocytes # (Auto) 0.7 0-1.3 10 ^3/uL Eosinophils # (Auto) 0.2 0-0.8 10 ^3/uL Basophils # (Auto) 0.1 0-0.2 10 ^3/uL Nucleated Red Blood Cells 0.2 % Sodium Level 141 136-145 mmol/L Potassium Level 3.6 3.5-5.1 mmol/L Chloride Level 110 H 98-107 mmol/L Carbon Dioxide Level 23 20-31 mmol/L Anion Gap 8 5-15 Blood Urea Nitrogen 28 H 9-23 mg/dL Creatinine 1.79 H 0.550-1.02 mg/dL Glomerular Filtration Rate Calc 31 >90 mL/min BUN/Creatinine Ratio 15.6 10.0-20.0 Serum Glucose 111 H 74-106 mg/dL Calcium Level 9.6 8.7-10.4 mg/dL Total Bilirubin 0.2 0.2-1.0 mg/dL Aspartate Amino Transferase (AST) 10 L 13-40 U/L Alanine Aminotransferase (ALT) 16 7-40 U/L Alkaline Phosphatase 166 H 46-116 U/L Total Protein 6.5 5.7-8.2 g/dL Albumin 3.9 3.2-4.8 g/dL Urine Color Light-yellow Yellow Urine Clarity Clear Clear Urine pH 5.5 5.0-9.0 Urine Specific [place] 1.005 1.001-1.035 Urine Protein Negative Negative Urine Ketones Negative Negative Urine Blood Negative Negative /uL Urine Nitrite Negative Negative Urine Bilirubin Negative Negative Urine Urobilinogen Normal Negative mg/dL Urine Leukocyte Esterase 2+ Negative /uL Urine RBC 2 0 - 4 /hpf Urine Microscopic WBC 4 0-5 /HPF Urine Squamous Epithelial Cells None seen <5 /hpf Urine Bacteria Few H None Seen /hpf Urine Glucose Normal Normal mg/dL PATIENT: RONEY STONE ACCT: [id number] UNIT: [id number] : 1955 LOC: ER ROOM / BED: / AGE / SEX: 68 / F ADM STATUS: REG ER SERVICE [id number] ORDERING PHYSICIAN: DAMION ROWE MD PROCEDURE(s): PL2CT - PELVIS WO CONTRAST REASON: right hip pain ORDER NUMBER(s): [id number], ACCESSION NUMBER(s): [id number] Exam: CT PELVIS WO CONTRAST History: right hip pain Comparison Study: None Technique: Multidetector CT of the pelvis was performed from iliac crests to pubic symphysis after the administration of intravenous contrast was administered during this examination. Portal venous imaging was obtained. Axial, coronal and sagittal multiplanar reformats were performed by the technologist on a separate workstation. Radiation Dose : CT Dose: CTDI volume is 15.96 mGy. Dose-length product is 555.08 mGy*cm Findings: Visualized bowel: No bowel wall thickening or dilatation. Ascites: Absent Lymphadenopathy: No pelvic or mesenteric lymphadenopathy. Vasculature: The visualized abdominal aorta is normal in size and caliber. Abdominal and pelvic vessels demonstrate normal enhancement. Pelvic Organs: Unremarkable Musculoskeletal: No acute osseous abnormality. Pedicle screws and rods in place at L5-S1 with intervertebral spacer. Displaced comminuted intertrochanteric fracture with involvement of the greater and lesser trochanter. Proximal right femur. Bladder: Unremarkable Soft tissues: Unremarkable. IMPRESSION: 1. Comminuted displaced intertrochanteric fracture proximal right femur with involvement of the greater and lesser trochanter. 2. Pedicle screws and rods in place at L4-L5 and S1. Assessment/Plan Assessment/Plan Intertrochanteric fracture Accelerated hypertension Urinary tract infection Acute on chronic renal failure Displaced intertrochanteric fracture of right femur, initial encounter for closed fracture Plan 1. Admit to telemetry unit 2. Breathing treatment 3. Pain control management 4. IV antibiotic management 5. Management of fluids and electrolytes 6. Consultation for orthopedic 7. Diagnostic test pelvic CT 8. DVT prophylaxis-on SCDs 9. Repeat labs CBC, CMP in a.m. 10. Home medication reviewed and reconciled 11. Continue with current medical management 12. Treatment plan discussed with patient and RN. Patient verbalized understanding. Plan discussed with: Patient, Other (RN) My Orders Orders - AMADOU ORTA DNP Procedure Category Date Status Time Hydralazine Injection PHA 10/26/24 In Process (Apresoline Inject 21:30 Gabapentin Capsule PHA 10/26/24 In Process (Neurontin Capsule) 22:00 Consistent DIET 10/27/24 Transmitted Carb(Ccho)Diabetes Breakfast Amlodipine Tablet PHA 10/27/24 In Process (Norvasc Tablet) 10:00 Atenolol Tablet PHA 10/27/24 In Process (Tenormin Tablet) 10:00 Glucose Blood PHA 10/26/24 In Process (Accu-Chek Comfort 22:00 Insulin R (Human) PHA 10/26/24 In Process (Insulin R) 22:00 Dextrose 50% Syringe PHA 10/26/24 In Process 21:30 Allergies MARIMAR 10/26/24 In Process 21:16 Code Status CODE 10/26/24 Transmitted 21:16 Sodium Chloride 0.9% PHA 10/26/24 In Process 21:30 Oxygen Per Hour RT 10/26/24 Transmitted 21:16 Hydrocodone-Acet PHA 10/26/24 In Process 5/325mg Tab ([place] 21:30 Ondansetron Hcl PHA 10/26/24 In Process (Zofran) 21:30 Docusate Sodium PHA 10/26/24 In Process Capsule (Colace 21:30 Fall Risk Precautions MARIMAR 10/26/[address] 21:16 Complete Blood Count LAB 10/27/24 Verified 04:00 Comprehensive LAB 10/27/24 Verified Metabolic Panel 04:00 Condition: Serious MARIMAR 10/26/24 In Process 21:16 Acetaminophen Tablet PHA 10/26/24 In Process (Tylenol Tablet) 21:30 Maintain Bed Rest MARIMAR 10/26/24 In Process 21:16 Morphine Sulfate PHA 10/26/24 In Process Injection 21:30 Sequential MARIMAR 10/26/24 In Process Compression Device * Orthopedic Consult CONS 10/26/24 Transmitted 21:24 Urine Bacterial MARY 10/26/24 Verified Culture 23:11 Ceftriaxone Ivpb PHA 10/27/24 Verified Rocephin 09:00 Ceftriaxone Ivpb PHA 10/26/24 Verified Rocephin 23:15 Type And Screen BBK 10/26/24 Verified 23:11 Admit ADMIT 10/26/24 Verified 23:11 Nitroglycerin PHA 10/26/24 Verified Sublingual (Ntrostat 23:15 Morphine Sulfate PHA 10/26/24 Verified Injection 23:15 Notify Of Changes MARIMAR 10/26/24 Verified From Base 23:11 Military Lawyer For [facility] 10/26/24 Verified 24 Hours 23:11 Emergency Dysrhythmia MARIMAR 10/26/24 Verified Protocol 23:11 Rhythm Strips Once MARIMAR 10/26/24 Verified Every Shift 23:11 Oxygen By Nasal RT 10/26/24 Verified Cannula 23:11 Problem List: (1) Intertrochanteric fracture (2) Accelerated hypertension (3) Acute on chronic renal failure (4) UTI (urinary tract infection) (5) Displaced intertrochanteric fracture of right femur, initial encounter for closed fracture Date of Service: October 26, 2024 Billing Provider: AMADOU ORTA DNP Common Visit Codes: [id number] INP/OBS CARE (HIGH) AMADOU ORTA DNP October 26, 2024 23:15
[2024-10-26] MEDS: cefTRIAXone 1GM/50ML D5W 50 ML IV ONE (23:23)
[2024-10-27] VITALS (7 sets, daily range): BP systolic 154–181; BP diastolic 63–72; PULSE 72–109; RESP 16–18; TEMP 97.6–98.6; O2SAT 97–100
[2024-10-27] MEDS: MORPHINE SULFATE INJ 2 MG/ml SYRG IV PRN (04:41)
[2024-10-27] MEDS: hydrALAZINE HCL 20 MG/ML VL IV PRN (06:40)
[2024-10-27] MEDS ORDERED: CLON-853 PO (07:36)
[2024-10-27] MEDS ORDERED: ATEN100T PO (07:36)
[2024-10-27] MEDS ORDERED: PANT40T PO (07:36)
[2024-10-27 07:38] LABS: Basophils # (auto) 0 10 ^3/uL (0-0.2); Basophils % (auto) 0.8 % (0.0-2.0); Eosinophils # (auto) 0.2 10 ^3/uL (0-0.8); Eosinophils % (auto) 3.7 % (0.0-7.0); Hemoglobin 9.4 g/dL (12.2-16.2); Lymphocytes # (auto) 1.2 10 ^3/uL (0.4-5.4); Mean Corpuscular Hemoglobin 28.8 pg (28.0-32.0); Mean Corpuscular Hgb Conc. 33.5 g/dL (32.0-36.0); Mean Corpuscular Volume 85.8 fL (80.0-100.0); Monocytes # (auto) 0.6 10 ^3/uL (0-1.3); Monocytes % (auto) 10.9 % (0.0-12.0); Neutrophils # (auto) 3.6 10 ^3/uL (1.6-8.6); Neutrophils % (auto) 63.6 % (37.0-80.0); Nucleated Red Blood Cells % 0.1 %; Platelet Count (auto) 534 10^3/uL (140-450); Red Blood Cells 3.26 10^6/uL (4.0-5.20); Red Cell Distribution Width 14.2 % (11.8-14.3); White Blood Cell 5.7 10^3/uL (4.4-10.8)
[2024-10-27 08:00] LABS: Alanine Aminotransferase 19 U/L (7-40); Albumin 4.1 g/dL (3.2-4.8); Anion Gap 10 (5-15); Aspartate Aminotransferase 14 U/L (13-40); BUN/Creatinine Ratio 14.4 (10.0-20.0); Calcium 9.9 mg/dL (8.7-10.4); Carbon Dioxide 23 mmol/L (20-31); Sodium 142 mmol/L (136-145); Total Protein 6.7 g/dL (5.7-8.2)
[2024-10-27 08:07] LABS: Chloride 109 mmol/L (98-107); Potassium 3.4 mmol/L (3.5-5.1)
[2024-10-27 08:08] LABS: Alkaline Phosphatase 166 U/L (46-116); Bilirubin, Total 0.2 mg/dL (0.2-1.0); Blood Urea Nitrogen 26 mg/dL (9-23); Glucose 126 mg/dL (74-106)
[2024-10-27] MEDS: ATENOLOL 25 MG TAB PO SCH (11:26)
[2024-10-27] MEDS: amLODIPine BESYLATE 5 MG TAB PO SCH (11:31)
--- NOTE | 2024-10-27 11:53 | DVHPN2 ---
Reviewed: Care Plan, H&P, Labs, Medications, Previous Orders, Radiology Changes from previous H/P or p: No Changes Eyes: No Pain, No Vision change, No Conjunctivae inflammation, No Eyelid inflammation, No Other, No Redness ENT: No Ear pain, No Ear discharge, No Nose pain, No Nose discharge, No Nose congestion, No Mouth pain, No Mouth swelling, No Throat pain, No Throat swelling, No Other Cardiovascular: No Chest Pain, No Palpitations, No Orthopnea, No Paroxysmal Noc. Dyspnea, No Edema, No Lt Headedness, No Other Respiratory: No Cough, No Dry, No Shortness of breath, No SOB with excertion, No Wheezing, No Hemoptysis, No Pleuritic Pain, No Sputum, No Other Gastrointestinal: No Nausea, No Vomiting, No Abdominal Pain, No Diarrhea, No Constipation, No Melena, No Hematochezia, No Other Genitourinary: No Dysuria, No Frequency, No Incontinence, No Hematuria, No Retention, No Other Musculoskeletal: other (Hip pain); No neck pain, No shoulder pain, No arm pain, No back pain, No hand pain, No leg pain, No foot pain Skin: No Rash, No Lesions, No Jaundice, No Bruising, No Other Objective Vitals Vital Signs Date Time Temp Pulse Resp B/P (MAP) Pulse Ox O2 Delivery O2 Flow Rate FiO2 10/27/24 11:31 177/72 10/27/24 11:26 98 10/27/24 09:21 97.8 18 100 97.8 10/27/24 04:20 Room Air* 0 21 Intake/Output Intake and Output 10/27/24 07:00 Intake Total 390 ml Output Total 650 ml Balance -260 ml Intake Oral 100 ml IV Total 290 ml Output Urine Total 650 ml Medications Current Medications Medications Dose Ordered Sig/Sandy Route Start Time Stop Time Status Last Admin Dose Admin Hydralazine HCl 10 mg Q6HP PRN IV 10/26/24 21:30 10/27/24 06:40 10 MG Gabapentin 300 mg BID PO 10/26/24 22:00 10/27/24 11:31 300 MG Amlodipine Besylate 10 mg DAILY PO 10/27/24 10:00 10/27/24 11:31 10 MG Atenolol 50 mg DAILY PO 10/27/24 10:00 10/27/24 11:26 50 MG Diagnostic Test (Pha) 1 strip ACHS 10/26/24 22:00 10/27/24 11:31 1 STRIP Insulin Human Regular ACHS SC 10/26/24 22:00 Dextrose 50 ml UD PRN IV 10/26/24 21:30 Sodium Chloride 1,000 ml @ 60 mls/hr [id number] IV 10/26/24 21:30 10/26/24 22:15 60 MLS/HR Acetaminophen/ Hydrocodone Bitart 1 tab Q4HP PRN PO 10/26/24 21:30 Ondansetron HCl 4 mg Q4HP PRN IV 10/26/24 21:30 Docusate Sodium 100 mg BIDPRN PRN PO 10/26/24 21:30 Acetaminophen 650 mg Q6HP PRN PO 10/26/24 21:30 Morphine Sulfate 2 mg Q4HPRN PRN IV 10/26/24 21:30 10/27/24 04:41 2 MG Ceftriaxone Sodium 50 ml @ 100 mls/hr DAILY@2100 IV 10/27/24 21:00 Nitroglycerin 0.4 mg Q5MINP PRN SL 10/26/24 23:15 Morphine Sulfate 2 mg Q30M PRN IV 10/26/24 23:15 Laboratory Results Laboratory Tests 10/27/24 06:24 Chemistry Test 10/26/24 21:29 10/27/24 06:24 Albumin 3.9 g/dL (3.2-4.8) 4.1 g/dL (3.2-4.8) Calcium Level 9.6 mg/dL (8.7-10.4) 9.9 mg/dL (8.7-10.4) Total Protein 6.5 g/dL (5.7-8.2) 6.7 g/dL (5.7-8.2) LFT Test 10/26/24 21:29 10/27/24 06:24 Alanine Aminotransferase (ALT) 16 U/L (7-40) 19 U/L (7-40) Alkaline Phosphatase 166 U/L (46-116) H 166 U/L (46-116) H Aspartate Amino Transferase (AST) 10 U/L (13-40) L 14 U/L (13-40) Total Bilirubin 0.2 mg/dL (0.2-1.0) 0.2 mg/dL (0.2-1.0) Urinalysis Test 10/26/24 20:45 Urine Color Light-yellow (Yellow) Urine Clarity Clear (Clear) Urine pH 5.5 (5.0-9.0) Urine Specific [place] 1.005 (1.001-1.035) Urine Protein Negative (Negative) Urine Ketones Negative (Negative) Urine Blood Negative /uL (Negative) Urine Nitrite Negative (Negative) Urine Bilirubin Negative (Negative) Urine Urobilinogen Normal mg/dL (Negative) Urine Leukocyte Esterase 2+ /uL (Negative) Urine RBC 2 /hpf (0 - 4) Urine Microscopic WBC 4 /HPF (0-5) Urine Squamous Epithelial Cells None seen /hpf (<5) Urine Bacteria Few /hpf (None Seen) H Urine Glucose Normal mg/dL (Normal) Labs and/or images reviewed: Labs reviewed by me, Image(s) reviewed by me Assessment/Plan Assessment/Plan Acute Comminuted displaced intertrochanteric fracture proximal right femur with involvement of the greater and lesser trochanter. Mechanical fall Anxiety Arthritis Asthma CKD COPD History of CVA History of depression Diabetes UTI Hypertensive urgency Hyperlipidemia GERD Possible Decubitus ulcer on the back: Wound care nurse consult History of two L spine surgeries and to C-spine surgeries Echo 65 % ejection fraction Patient Left AMA from [facility] post-acute Patient has caregiver Cassie Time Spent 70 minutes Patient is full code Advanced care planning time 20 minutes Plan discussed with: Patient Date of Service: October 27, 2024 Billing Provider: COTY TOWNSEND MD Common Visit Codes: [id number] CARE 30-74 MIN COTY TOWNSEND MD October 27, 2024 11:53
[2024-10-27 13:29] LABS: Prothrombin Time 10.6 sec (9.3-11.8)
--- NOTE | 2024-10-27 13:58 | DVHINCON2 ---
Date Seen: October 27, 2024 Referring Physician Chris Reason for Consultation Pre-op Cardiac Assessment History of Present Illness 68-year-old female with PMH for diabetes, HTN, CVA x2, COPD, CKD stage 4, HLD, recent right femur fracture 2 weeks ago presents to the hospital with right hip pain. Patient was discharged to [facility] with sniff 2 weeks prior after right hip fracture no surgical intervention. Patient ended up checking out herself due to improper care. Patient states she was laying in bed turned and heard a snap and had extreme pain to her right hip, was unable to bear weight. Upon presentation to the ER patient found to have comminuted displacement of intratrochanteric fracture proximal right femur. Denies any chest pain, palpitation, shortness of breath. Continues to use tobacco approximately half a pack a day. Denies any pulmonary problems not on home O2. Denies previous cardiac history/cardiac workup. Patient noted to have significantly elevated blood pressure on arrival up to 200/84. Endorses BP medication compliance. Past Medical History As stated above Past Surgical History Denies previous cardiac surgeries Family History: Cancer (Lung cancer) G8 MOTHER G8 FATHER (Lung cancer) Cardiovascular disease Diabetes mellitus G8 BROTHER FH: lung cancer G8 MOTHER G8 FATHER FH: lupus G8 SISTER Family history: Cardiovascular disease G8 BROTHER Hypertension G8 FATHER G8 MOTHER G8 FATHER Social History Denies alcohol, illicit drug use. Half a pack smoker with previous 1 pack a day smoker for many years. Allergies: Coded Allergies: NO KNOWN ALLERGIES (Unverified , 09/29/20) Home Meds Active Scripts Cefdinir (Cefdinir) 300 Mg Cap, 1 CAP PO BID, #14 CAP Prov:FILI CONTRERAS MD 10/10/23 Clonidine Hydrochloride (Clonidine Hcl) 0.3 Mg Tab, 1 TAB PO BID, #120 TAB Prov:FILI CONTRERAS MD 10/10/23 Hydralazine HCl (Hydralazine HCl) 25 Mg Tab, 50 MG PO TID, #120 TAB Prov:FILI CONTRERAS MD 10/10/23 Furosemide (Lasix) 40 Mg Tab, 40 MG PO BID, #30 TAB Prov:JAYDEN SHEIKH 11/04/22 Atenolol (Atenolol) 100 Mg Tab, 100 MG PO DAILY for 30 Days, #30 MG Prov:FRED STEPHEN MD 07/27/21 Amlodipine Besylate (Amlodipine Besylate) 10 Mg Tab, 1 TAB PO BID, #30 TAB 5 Refills Prov:FILI CONTRERAS MD 09/13/20 Reported Medications Clonazepam (Clonazepam) 1 Mg Tab, 0.25 TAB PO TID, #30 TAB 10/27/24 Atenolol (Atenolol) 100 Mg Tab, 100 MG PO QID for 30 Days, MG 10/27/24 Pantoprazole Sodium Sesquihydr (Pantoprazole Sodium) 40 Mg Tab, PO DAILY, TAB 10/27/24 Lurasidone Hydrochloride (LATUDA) 40 Mg Tab, 1 TAB PO QPM, #30 TAB 1 Refill 10/11/24 Glipizide (Glipizide) 5 Mg Tab, 1 TAB PO BID, #60 TAB 3 Refills 10/11/24 Tizanidine Hydrochloride (Zanaflex) 4 Mg Tab, 1 TAB PO QPM, #30 TAB 10/11/24 Amitriptyline Hcl (Amitriptyline Hcl) 25 Mg Tab, 1 TAB PO QPM, #30 TAB 5 Refills 10/11/24 Hydrocodone-Acetaminophen (Hydrocodone Bitartrate/AC 10-325 mg) 1 Tab Tab, 1 TAB PO Q8HPRN PRN for PAIN SCALE 7 THRU 10, TAB 10/09/23 Cholecalciferol (VITAMIN D-3) 2,000 Unit Tab, 2000 UNIT PO DAILY, TAB 12/28/14 Gabapentin (Gabapentin) 300 Mg Cap, 1 CAP PO BID, #90 CAP 1 Refill 06/05/14 Discontinued Reported Medications Clonazepam (Clonazepam) 1 Mg Tab, 0.25 TAB PO BID, #60 TAB 10/09/23 Omeprazole (PRILOSEC) 20 Mg Cap, 1 CAP PO DAILY, #90 CAP 2 Refills 06/05/14 Current Medications Current Medications Medications (Trade) Dose Ordered Sig/Sandy Route PRN Reason Start Time Stop Time Status Last Admin Hydralazine HCl (Apresoline Injection) 10 mg Q6HP PRN IV SBP>150 10/26/24 21:30 10/27/24 06:40 Gabapentin (Neurontin Capsule) 300 mg BID PO 10/26/24 22:00 10/27/24 11:31 Amlodipine Besylate (Norvasc Tablet) 10 mg DAILY PO 10/27/24 10:00 10/27/24 11:31 Atenolol (Tenormin Tablet) 50 mg DAILY PO 10/27/24 10:00 10/27/24 11:26 Diagnostic Test (Pha) (Accu-Chek Comfort Curve T) 1 strip ACHS 10/26/24 22:00 10/27/24 11:31 Insulin Human Regular (InsuLIN R) ACHS SC 10/26/24 22:00 Dextrose 50 ml UD PRN IV Blood Sugar LESS THAN 60 10/26/24 21:30 Sodium Chloride 1,000 ml @ 60 mls/hr [id number] IV 10/26/24 21:30 10/26/24 22:15 Acetaminophen/ Hydrocodone Bitart ([place] 5/325MG Tab) 1 tab Q4HP PRN PO MODERATE PAIN (4-6 PAIN SCALE) 10/26/24 21:30 Ondansetron HCl (Zofran) 4 mg Q4HP PRN IV NAUSEA / VOMITING 10/26/24 21:30 Docusate Sodium (Colace Capsule) 100 mg BIDPRN PRN PO FOR CONSTIPATION 10/26/24 21:30 Acetaminophen (Tylenol Tablet) 650 mg Q6HP PRN PO PAIN SCALE 1-3 OR TEMP>100.4 10/26/24 21:30 Morphine Sulfate 2 mg Q4HPRN PRN IV SEVERE PAIN (7-10 PAIN SCALE) 10/26/24 21:30 10/27/24 04:41 Ceftriaxone Sodium 50 ml @ 100 mls/hr DAILY@2100 IV 10/27/24 21:00 Nitroglycerin (Ntrostat Sublingual) 0.4 mg Q5MINP PRN SL FOR CHEST PAIN 10/26/24 23:15 Morphine Sulfate 2 mg Q30M PRN IV FOR CHEST PAIN 10/26/24 23:15 Review of Systems Constitutional: No: Fever, Chills, Sweats, Weakness, Malaise, Other Eyes: No: Pain, Vision change, Conjunctivae inflammation, Eyelid inflammation, Other, Redness ENT: No: Ear pain, Ear discharge, Nose pain, Nose discharge, Nose congestion, Mouth pain, Mouth swelling, Throat pain, Throat swelling, Other Respiratory: No: Cough, Dry, Shortness of breath, SOB with exertion, Wheezing, Hemoptysis, Pleuritic Pain, Sputum, Wheezing, Other Cardiovascular: ; No: Chest Pain Palpitations, Orthopnea, Paroxysmal Noc. Dyspnea, Edema, Lt Headedness, Other Gastrointestinal: No: Nausea, Vomiting, Abdominal Pain, Diarrhea, Constipation, Melena, Hematochezia, Other Genitourinary: No Dysuria, No Frequency, No Incontinence, No Hematuria, No Retention, No Other Musculoskeletal: neck pain; No: other, shoulder pain, arm pain, back pain, hand pain, foot pain positive: leg pain, Skin: No: Rash, Lesions, Jaundice, Bruising, Other Neurological: Other (Dizziness, headache.); No: Weakness, Numbness, Incoordination, Change in speech, Confusion, Seizures Vital Signs Vital Signs Date Time Temp Pulse Resp B/P (MAP) Pulse Ox O2 Delivery O2 Flow Rate FiO2 10/27/24 12:06 98.0 109 16 177/72 (107) 98 98.0 10/27/24 08:00 Room Air* 0 21 Physical Exam General appearance: Patient is well-developed, well-nourished, in no acute distress. HEENT: Exam shows: Normocephalic, atraumatic, PERRLA, EOMI Neck: Supple, no bruits Chest: Equal chest excursion bilaterally. Breath sounds normal-no rales or wheezes. Heart: Rhythm: Regular rate; no murmur or gallop Abdomen: Exam shows: Soft, nontender, nondistended Musculoskeletal: No clubbing, no cyanosis, no lower extremity edema Dermatology: Skin warm, moist. Neurological: Exam shows: Alert and oriented x4, normal speech Available prior records, labs, EKG, rhythm strips reviewed and interpreted Labs/Diagnostic Data Labs Test 10/27/24 12:50 10/27/24 11:33 10/27/24 06:24 10/26/24 20:45 Range/Units Prothrombin Time 10.6 9.3-11.8 sec Prothrombin Time INR 1.00 0.9-1.15 POC Glucose 127 H 70-106 mg/dl White Blood Count 5.7 4.4-10.8 10^3/uL Red Blood Count 3.26 L 4.0-5.20 10^6/uL Hemoglobin 9.4 L 12.2-16.2 g/dL Hematocrit 28.0 L 36.0-46.0 % Mean Corpuscular Volume 85.8 80.0-100.0 fL Mean Corpuscular Hemoglobin 28.8 28.0-32.0 pg Mean Corpuscular Hemoglobin Concent 33.5 32.0-36.0 g/dL Red Cell Distribution Width 14.2 11.8-14.3 % Platelet Count 534 H 140-450 10^3/uL Mean Platelet Volume 6.8 L 6.9-10.8 fL Neutrophils (%) (Auto) 63.6 37.0-80.0 % Lymphocytes (%) (Auto) 21.0 10.0-50.0 % Monocytes (%) (Auto) 10.9 0.0-12.0 % Eosinophils (%) (Auto) 3.7 0.0-7.0 % Basophils (%) (Auto) 0.8 0.0-2.0 % Neutrophils # (Auto) 3.6 1.6-8.6 10 ^3/uL Lymphocytes # (Auto) 1.2 0.4-5.4 10 ^3/uL Monocytes # (Auto) 0.6 0-1.3 10 ^3/uL Eosinophils # (Auto) 0.2 0-0.8 10 ^3/uL Basophils # (Auto) 0 0-0.2 10 ^3/uL Nucleated Red Blood Cells 0.1 % Sodium Level 142 136-145 mmol/L Potassium Level 3.4 L 3.5-5.1 mmol/L Chloride Level 109 H 98-107 mmol/L Carbon Dioxide Level 23 20-31 mmol/L Anion Gap 10 5-15 Blood Urea Nitrogen 26 H 9-23 mg/dL Creatinine 1.80 H 0.550-1.02 mg/dL Glomerular Filtration Rate Calc 31 >90 mL/min BUN/Creatinine Ratio 14.4 10.0-20.0 Serum Glucose 126 H 74-106 mg/dL Calcium Level 9.9 8.7-10.4 mg/dL Total Bilirubin 0.2 0.2-1.0 mg/dL Aspartate Amino Transferase (AST) 14 13-40 U/L Alanine Aminotransferase (ALT) 19 7-40 U/L Alkaline Phosphatase 166 H 46-116 U/L Total Protein 6.7 5.7-8.2 g/dL Albumin 4.1 3.2-4.8 g/dL Urine Color Light-yellow Yellow Urine Clarity Clear Clear Urine pH 5.5 5.0-9.0 Urine Specific [place] 1.005 1.001-1.035 Urine Protein Negative Negative Urine Ketones Negative Negative Urine Blood Negative Negative /uL Urine Nitrite Negative Negative Urine Bilirubin Negative Negative Urine Urobilinogen Normal Negative mg/dL Urine Leukocyte Esterase 2+ Negative /uL Urine RBC 2 0 - 4 /hpf Urine Microscopic WBC 4 0-5 /HPF Urine Squamous Epithelial Cells None seen <5 /hpf Urine Bacteria Few H None Seen /hpf Urine Glucose Normal Normal mg/dL Assessment * Pre-op Cardiac Assessment - Patient is requiring right hip surgery due to fracture. Denies active cardiac symptoms. Recent echo 10/12/2024 showing normal EF, mild LVH, moderate CHF with RVSP of 40-45 mmHg. Follow up EKG. Patient is intermediate risk for intermediate risk surgery. May proceed. Avoid fluid overload. * Right intertrochanteric fracture - ortho on board. * Uncontrolled HTN - continue on atenolol and amlodipine. Titrate as tolerated. Hydralazine added. IV p.r.n. as needed. * HX CVA - resume aspirin and statin once cleared by ortho. * CKD - creatinine seems to be at baseline. Continue monitoring. Avoid nephrotoxic agents. * Tobacco use - advised against. Case Discussed with Dr Thurman. Critical care, time spent: minutes This medical document was created using an electronic medical record system with voice recognition software and computerized dictation system. Although this d ocument has been carefully reviewed, there might still be some phonetic and typographical errors. Occasional wrong-word or ``sound-alike substitutions may have occurred due to the inherent limitations of voice recognition software. These areas are purely typographical due to imperfections of the software programs and do not reflect any compromise in the patient's medical care. Please read the chart carefully and recognize, using context, where these substitutions have occurred. Thank you for allowing me to participate in the management of this patient. The treatment plan was discussed with and agreed upon by patient/family in cluding requesting consultants and ordering of imaging/procedures. Plan discussed with: Patient NYHA Physical activity limitations: NA Date of Service: October 27, 2024 Billing Provider: ELLIOT GRIER [facility] Cardiology Common Codes: 58173-JAVMLXQ INP/OBS CARE (High), [id number] CARE 30-74 MIN ELLIOT GRIER [facility] October 27, 2024 13:58
[2024-10-27] MEDS: hydrALAZINE HCL 25 MG TAB PO SCH (14:00)
[2024-10-27] MEDS: cefTRIAXone 1GM/50ML D5W 50 ML IV SCH (21:02)
--- NOTE | 2024-10-27 23:39 | DVHINCON2 ---
Date Seen: October 27, 2024 Referring Physician Chris Reason for Consultation Pre-op Cardiac Assessment History of Present Illness This is a 68-year-old female with PMH of diabetes, HTN, CVA x2, COPD, CKD stage 4, HLD, recent right femur fracture 2 weeks ago presents to the ED with complaints of right hip pain. Patient was discharged to [facility] 2 weeks prior after right hip fracture no surgical intervention. Patient ended up checking herself out of [facility] due to feeling like she received improper care. Patient states she was laying in bed and turned herself and heard a snap and had extreme pain to her right hip, was unable to bear weight. Upon presentation to the ED patient was found to have comminuted displacement of intratrochanteric fracture proximal right femur. Patient denies any chest pain, palpitation, shortness of breath. Patient continues to use tobacco approximately half a pack a day. Denies any pulmonary problems not on home O2. Denies previous cardiac history/cardiac workup. Patient noted to have significantly elevated blood pressure on arrival up to 200/84. Patient endorses BP medication compliance. Pelvic CT revealed comminuted displaced intertrochanteric fracture proximal right femur with involvement of the greater and lesser trochanter. Pedicle screws and rods in place at L4-L5 and S1. Patient was admitted to the hospital. I am asked to consult on this patient. Past Medical History As stated above Past Surgical History Denies previous cardiac surgeries Family History: Cancer (Lung cancer) G8 MOTHER G8 FATHER (Lung cancer) Cardiovascular disease Diabetes mellitus G8 BROTHER FH: lung cancer G8 MOTHER G8 FATHER FH: lupus G8 SISTER Family history: Cardiovascular disease G8 BROTHER Hypertension G8 FATHER G8 MOTHER G8 FATHER Allergies: Coded Allergies: NO KNOWN ALLERGIES (Unverified , 09/29/20) Home Meds Active Scripts Cefdinir (Cefdinir) 300 Mg Cap, 1 CAP PO BID, #14 CAP Prov:FILI CONTRERAS MD 10/10/23 Clonidine Hydrochloride (Clonidine Hcl) 0.3 Mg Tab, 1 TAB PO BID, #120 TAB Prov:FILI CONTRERAS MD 10/10/23 Hydralazine HCl (Hydralazine HCl) 25 Mg Tab, 50 MG PO TID, #120 TAB Prov:FILI CONTRERAS MD 10/10/23 Furosemide (Lasix) 40 Mg Tab, 40 MG PO BID, #30 TAB Prov:JAYDEN SHEIKH [employer] 11/04/22 Atenolol (Atenolol) 100 Mg Tab, 100 MG PO DAILY for 30 Days, #30 MG Prov:FRED STEPHEN MD 07/27/21 Amlodipine Besylate (Amlodipine Besylate) 10 Mg Tab, 1 TAB PO BID, #30 TAB 5 Refills Prov:FILI CONTRERAS MD 09/13/20 Reported Medications Clonazepam (Clonazepam) 1 Mg Tab, 0.25 TAB PO TID, #30 TAB 10/27/24 Atenolol (Atenolol) 100 Mg Tab, 100 MG PO QID for 30 Days, MG 10/27/24 Pantoprazole Sodium Sesquihydr (Pantoprazole Sodium) 40 Mg Tab, PO DAILY, TAB 10/27/24 Lurasidone Hydrochloride (LATUDA) 40 Mg Tab, 1 TAB PO QPM, #30 TAB 1 Refill 10/11/24 Glipizide (Glipizide) 5 Mg Tab, 1 TAB PO BID, #60 TAB 3 Refills 10/11/24 Tizanidine Hydrochloride (Zanaflex) 4 Mg Tab, 1 TAB PO QPM, #30 TAB 10/11/24 Amitriptyline Hcl (Amitriptyline Hcl) 25 Mg Tab, 1 TAB PO QPM, #30 TAB 5 Refills 10/11/24 Hydrocodone-Acetaminophen (Hydrocodone Bitartrate/AC 10-325 mg) 1 Tab Tab, 1 TAB PO Q8HPRN PRN for PAIN SCALE 7 THRU 10, TAB 10/09/23 Cholecalciferol (VITAMIN D-3) 2,000 Unit Tab, 2000 UNIT PO DAILY, TAB 12/28/14 Gabapentin (Gabapentin) 300 Mg Cap, 1 CAP PO BID, #90 CAP 1 Refill 06/05/14 Discontinued Reported Medications Clonazepam (Clonazepam) 1 Mg Tab, 0.25 TAB PO BID, #60 TAB 10/09/23 Omeprazole (PRILOSEC) 20 Mg Cap, 1 CAP PO DAILY, #90 CAP 2 Refills 06/05/14 Current Medications Current Medications Medications (Trade) Dose Ordered Sig/Sandy Route PRN Reason Start Time Stop Time Status Last Admin Hydralazine HCl (Apresoline Injection) 10 mg Q6HP PRN IV SBP>150 10/26/24 21:30 10/27/24 06:40 Gabapentin (Neurontin Capsule) 300 mg BID PO 10/26/24 22:00 10/27/24 11:31 Amlodipine Besylate (Norvasc Tablet) 10 mg DAILY PO 10/27/24 10:00 10/27/24 11:31 Atenolol (Tenormin Tablet) 50 mg DAILY PO 10/27/24 10:00 10/27/24 13:57 DC 10/27/24 11:26 Diagnostic Test (Pha) (Accu-Chek Comfort Curve T) 1 strip ACHS 10/26/24 22:00 10/27/24 11:31 Insulin Human Regular (InsuLIN R) ACHS SC 10/26/24 22:00 Dextrose 50 ml UD PRN IV Blood Sugar LESS THAN 60 10/26/24 21:30 Sodium Chloride 1,000 ml @ 60 mls/hr [id number] IV 10/26/24 21:30 10/26/24 22:15 Acetaminophen/ Hydrocodone Bitart ([place] 5/325MG Tab) 1 tab Q4HP PRN PO MODERATE PAIN (4-6 PAIN SCALE) 10/26/24 21:30 Ondansetron HCl (Zofran) 4 mg Q4HP PRN IV NAUSEA / VOMITING 10/26/24 21:30 Docusate Sodium (Colace Capsule) 100 mg BIDPRN PRN PO FOR CONSTIPATION 10/26/24 21:30 Acetaminophen (Tylenol Tablet) 650 mg Q6HP PRN PO PAIN SCALE 1-3 OR TEMP>100.4 10/26/24 21:30 Morphine Sulfate 2 mg Q4HPRN PRN IV SEVERE PAIN (7-10 PAIN SCALE) 10/26/24 21:30 10/27/24 04:41 Ceftriaxone Sodium 50 ml @ 100 mls/hr DAILY@2100 IV 10/27/24 21:00 Nitroglycerin (Ntrostat Sublingual) 0.4 mg Q5MINP PRN SL FOR CHEST PAIN 10/26/24 23:15 Morphine Sulfate 2 mg Q30M PRN IV FOR CHEST PAIN 10/26/24 23:15 Labetalol HCl (Labetalol HCl) 10 mg Q4HPRN PRN IV SBP>170 10/27/24 14:00 UNV Atenolol (Tenormin Tablet) 100 mg DAILY PO 10/28/24 10:00 UNV Hydralazine HCl (Apresoline Tablet) 25 mg Q8HR PO 10/27/24 14:00 UNV Review of Systems Constitutional: No: Fever, Chills, Sweats, Weakness, Malaise, Other Eyes: No: Pain, Vision change, Conjunctivae inflammation, Eyelid inflammation, Other, Redness ENT: No: Ear pain, Ear discharge, Nose pain, Nose discharge, Nose congestion, Mouth pain, Mouth swelling, Throat pain, Throat swelling, Other Respiratory: No: Cough, Dry, Shortness of breath, SOB with exertion, Wheezing, Hemoptysis, Pleuritic Pain, Sputum, Wheezing, Other Cardiovascular: ; No: Chest Pain Palpitations, Orthopnea, Paroxysmal Noc. Dyspnea, Edema, Lt Headedness, Other Gastrointestinal: No: Nausea, Vomiting, Abdominal Pain, Diarrhea, Constipation, Melena, Hematochezia, Other Genitourinary: No Dysuria, No Frequency, No Incontinence, No Hematuria, No Re tention, No Other Musculoskeletal: neck pain; No: other, shoulder pain, arm pain, back pain, hand pain, foot pain positive: leg pain, Skin: No: Rash, Lesions, Jaundice, Bruising, Other Neurological: Other (Dizziness, headache.); No: Weakness, Numbness, Incoordination, Change in speech, Confusion, Seizures Vital Signs Vital Signs Date Time Temp Pulse Resp B/P (MAP) Pulse Ox O2 Delivery O2 Flow Rate FiO2 10/27/24 12:06 98.0 109 16 177/72 (107) 98 98.0 10/27/24 08:00 Room Air* 0 21 Physical Exam GENERAL: Alert and oriented x 3. No acute distress. EYES: PERRL, EOMI. Anicteric. HENT: Moist mucous membranes. LUNGS: Clear to auscultation bilaterally. CARDIOVASCULAR: Regular rate and rhythm. ABDOMEN: Soft, nontender and nondistended. EXTREMITIES: No edema. NEUROLOGIC: No focal neurological deficits. SKIN: Warm, dry. Labs/Diagnostic Data Labs Test 10/27/24 12:50 10/27/24 11:33 10/27/24 06:24 5/9/25 20:45 Range/Units Prothrombin Time 10.6 9.3-11.8 sec Prothrombin Time INR 1.00 0.9-1.15 POC Glucose 127 H 70-106 mg/dl White Blood Count 5.7 4.4-10.8 10^3/uL Red Blood Count 3.26 L 4.0-5.20 10^6/uL Hemoglobin 9.4 L 12.2-16.2 g/dL Hematocrit 28.0 L 36.0-46.0 % Mean Corpuscular Volume 85.8 80.0-100.0 fL Mean Corpuscular Hemoglobin 28.8 28.0-32.0 pg Mean Corpuscular Hemoglobin Concent 33.5 32.0-36.0 g/dL Red Cell Distribution Width 14.2 11.8-14.3 % Platelet Count 534 H 140-450 10^3/uL Mean Platelet Volume 6.8 L 6.9-10.8 fL Neutrophils (%) (Auto) 63.6 37.0-80.0 % Lymphocytes (%) (Auto) 21.0 10.0-50.0 % Monocytes (%) (Auto) 10.9 0.0-12.0 % Eosinophils (%) (Auto) 3.7 0.0-7.0 % Basophils (%) (Auto) 0.8 0.0-2.0 % Neutrophils # (Auto) 3.6 1.6-8.6 10 ^3/uL Lymphocytes # (Auto) 1.2 0.4-5.4 10 ^3/uL Monocytes # (Auto) 0.6 0-1.3 10 ^3/uL Eosinophils # (Auto) 0.2 0-0.8 10 ^3/uL Basophils # (Auto) 0 0-0.2 10 ^3/uL Nucleated Red Blood Cells 0.1 % Sodium Level 142 136-145 mmol/L Potassium Level 3.4 L 3.5-5.1 mmol/L Chloride Level 109 H 98-107 mmol/L Carbon Dioxide Level 23 20-31 mmol/L Anion Gap 10 5-15 Blood Urea Nitrogen 26 H 9-23 mg/dL Creatinine 1.80 H 0.550-1.02 mg/dL Glomerular Filtration Rate Calc 31 >90 mL/min BUN/Creatinine Ratio 14.4 10.0-20.0 Serum Glucose 126 H 74-106 mg/dL Calcium Level 9.9 8.7-10.4 mg/dL Total Bilirubin 0.2 0.2-1.0 mg/dL Aspartate Amino Transferase (AST) 14 13-40 U/L Alanine Aminotransferase (ALT) 19 7-40 U/L Alkaline Phosphatase 166 H 46-116 U/L Total Protein 6.7 5.7-8.2 g/dL Albumin 4.1 3.2-4.8 g/dL Urine Color Light-yellow Yellow Urine Clarity Clear Clear Urine pH 5.5 5.0-9.0 Urine Specific [place] 1.005 1.001-1.035 Urine Protein Negative Negative Urine Ketones Negative Negative Urine Blood Negative Negative /uL Urine Nitrite Negative Negative Urine Bilirubin Negative Negative Urine Urobilinogen Normal Negative mg/dL Urine Leukocyte Esterase 2+ Negative /uL Urine RBC 2 0 - 4 /hpf Urine Microscopic WBC 4 0-5 /HPF Urine Squamous Epithelial Cells None seen <5 /hpf Urine Bacteria Few H None Seen /hpf Urine Glucose Normal Normal mg/dL Assessment Pre-op Cardiac Assessment. Right intertrochanteric fracture. Uncontrolled HTN. History of CVA. CKD. Tobacco use. Plan/Recommendation I agree with your ongoing assessment and care of plan. Patient has been seen by Andrew Estrada NP on my behalf, him and I discussed the plan with the patient. Patient is requiring right hip surgery due to fracture. Denies active cardiac symptoms. Recent echo 10/12/2024 showing normal EF, mild LVH, moderate CHF with RVSP of 40-45 mmHg. Patient is intermediate risk for intermediate risk surgery. May proceed. Avoid fluid overload. Continue on atenolol and amlodipine. Titrate as tolerated. Hydralazine added. IV p.r.n. as needed. Resume aspirin and statin once cleared by ortho. Avoid nephrotoxic agents. Advised against tobacco use. Additional plan as per the hospital course. Plan discussed with: Patient NYHA Physical activity limitations: NA Date of Service: October 27, 2024 Billing Provider: KALEIGH ARAMBULA MD Cardiology Common Codes: 16063-[id number] INP/OBS CARE (High) KALEIGH ARAMBULA MD October 27, 2024 14:01
[2024-10-28] VITALS (10 sets, daily range): BP systolic 131–174; BP diastolic 60–77; PULSE 74–83; RESP 17–20; TEMP 97.7–98.3; O2SAT 97–100
[2024-10-28 07:14] LABS: Basophils # (auto) 0.1 10 ^3/uL (0-0.2); Basophils % (auto) 0.7 % (0.0-2.0); Eosinophils # (auto) 0.2 10 ^3/uL (0-0.8); Eosinophils % (auto) 2.5 % (0.0-7.0); Hematocrit 32.4 % (36.0-46.0); Lymphocytes # (auto) 1.7 10 ^3/uL (0.4-5.4); Lymphocytes % (auto) 17.5 % (10.0-50.0); Mean Corpuscular Hemoglobin 28.7 pg (28.0-32.0); Mean Corpuscular Hgb Conc. 33.9 g/dL (32.0-36.0); Mean Corpuscular Volume 84.7 fL (80.0-100.0); Monocytes # (auto) 0.8 10 ^3/uL (0-1.3); Monocytes % (auto) 8.7 % (0.0-12.0); Neutrophils # (auto) 6.7 10 ^3/uL (1.6-8.6); Neutrophils % (auto) 70.6 % (37.0-80.0); Platelet Count (auto) 616 10^3/uL (140-450); Red Blood Cells 3.82 10^6/uL (4.0-5.20); White Blood Cell 9.5 10^3/uL (4.4-10.8)
[2024-10-28 07:28] LABS: INR 1.01 (0.9-1.15); Partial Thromboplastin Time 27.7 SEC (24.5-34.5); Prothrombin Time 10.7 sec (9.3-11.8)
[2024-10-28 07:38] LABS: Alanine Aminotransferase 14 U/L (7-40); Albumin 4.2 g/dL (3.2-4.8); Anion Gap 8 (5-15); Blood Urea Nitrogen 17 mg/dL (9-23); Carbon Dioxide 25 mmol/L (20-31); Potassium 4.2 mmol/L (3.5-5.1); Sodium 141 mmol/L (136-145)
[2024-10-28 07:39] LABS: Alkaline Phosphatase 178 U/L (46-116); Aspartate Aminotransferase 11 U/L (13-40); Bilirubin, Total 0.2 mg/dL (0.2-1.0); Calcium 10.6 mg/dL (8.7-10.4); Chloride 108 mmol/L (98-107); Glucose 142 mg/dL (74-106)
[2024-10-28] MEDS: ATENOLOL 25 MG TAB PO SCH (09:21)
--- NOTE | 2024-10-28 11:27 | DVHPN2 ---
Reviewed: Care Plan, H&P, Labs, Medications, Previous Orders, Radiology Changes from previous H/P or p: No Changes Eyes: No Pain, No Vision change, No Conjunctivae inflammation, No Eyelid inflammation, No Other, No Redness ENT: No Ear pain, No Ear discharge, No Nose pain, No Nose discharge, No Nose congestion, No Mouth pain, No Mouth swelling, No Throat pain, No Throat swelling, No Other Cardiovascular: No Chest Pain, No Palpitations, No Orthopnea, No Paroxysmal Noc. Dyspnea, No Edema, No Lt Headedness, No Other Respiratory: No Cough, No Dry, No Shortness of breath, No SOB with excertion, No Wheezing, No Hemoptysis, No Pleuritic Pain, No Sputum, No Other Gastrointestinal: No Nausea, No Vomiting, No Abdominal Pain, No Diarrhea, No Constipation, No Melena, No Hematochezia, No Other Genitourinary: No Dysuria, No Frequency, No Incontinence, No Hematuria, No Retention, No Other Musculoskeletal: other (Hip pain); No neck pain, No shoulder pain, No arm pain, No back pain, No hand pain, No leg pain, No foot pain Skin: No Rash, No Lesions, No Jaundice, No Bruising, No Other Objective Vitals Vital Signs Date Time Temp Pulse Resp B/P (MAP) Pulse Ox O2 Delivery O2 Flow Rate FiO2 10/28/24 11:18 78 18 131/77 10/28/24 10:57 98.1 98 98.1 10/27/24 20:00 Room Air* 0 21 Intake/Output Intake and Output 10/28/24 07:00 Intake Total 1450 ml Output Total 1950 ml Balance -500 ml Intake Oral 600 ml IV Total 50 ml Tube Feeding 800 ml Output Urine Total 1950 ml Medications Current Medications Medications Dose Ordered Sig/Sandy Route Start Time Stop Time Status Last Admin Dose Admin Hydralazine HCl 10 mg Q6HP PRN IV 10/26/24 21:30 10/28/24 01:09 10 MG Gabapentin 300 mg BID PO 10/26/24 22:00 10/28/24 09:21 300 MG Amlodipine Besylate 10 mg DAILY PO 10/27/24 10:00 10/28/24 09:20 10 MG Diagnostic Test (Pha) 1 strip ACHS 10/26/24 22:00 10/28/24 10:57 1 STRIP Insulin Human Regular ACHS SC 10/26/24 22:00 10/28/24 11:12 2 UNITS Dextrose 50 ml UD PRN IV 10/26/24 21:30 Sodium Chloride 1,000 ml @ 60 mls/hr [id number] IV 10/26/24 21:30 10/26/24 22:15 60 MLS/HR Acetaminophen/ Hydrocodone Bitart 1 tab Q4HP PRN PO 10/26/24 21:30 Ondansetron HCl 4 mg Q4HP PRN IV 10/26/24 21:30 Docusate Sodium 100 mg BIDPRN PRN PO 10/26/24 21:30 Acetaminophen 650 mg Q6HP PRN PO 10/26/24 21:30 Morphine Sulfate 2 mg Q4HPRN PRN IV 10/26/24 21:30 10/28/24 11:18 2 MG Ceftriaxone Sodium 50 ml @ 100 mls/hr DAILY@2100 IV 10/27/24 21:00 10/27/24 21:02 100 MLS/HR Nitroglycerin 0.4 mg Q5MINP PRN SL 10/26/24 23:15 Morphine Sulfate 2 mg Q30M PRN IV 10/26/24 23:15 Labetalol HCl 10 mg Q4HPRN PRN IV 10/27/24 14:00 Atenolol 100 mg DAILY PO 10/28/24 10:00 10/28/24 09:21 100 MG Hydralazine HCl 25 mg Q8HR PO 10/27/24 14:00 10/28/24 05:03 25 MG Laboratory Results Laboratory Tests 10/28/24 06:56 Chemistry Test 10/28/24 06:56 Albumin 4.2 g/dL (3.2-4.8) Calcium Level 10.6 mg/dL (8.7-10.4) H Total Protein 7.0 g/dL (5.7-8.2) Coagulation Test 10/27/24 12:50 10/28/24 06:56 Prothrombin Time 10.6 sec (9.3-11.8) 10.7 sec (9.3-11.8) Prothrombin Time INR 1.00 (0.9-1.15) 1.01 (0.9-1.15) Activated Partial Thromboplast Time 27.7 SEC (24.5-34.5) LFT Test 10/28/24 06:56 Alanine Aminotransferase (ALT) 14 U/L (7-40) Alkaline Phosphatase 178 U/L (46-116) H Aspartate Amino Transferase (AST) 11 U/L (13-40) L Total Bilirubin 0.2 mg/dL (0.2-1.0) Urinalysis Test 10/26/24 20:45 Urine Color Light-yellow (Yellow) Urine Clarity Clear (Clear) Urine pH 5.5 (5.0-9.0) Urine Specific [place] 1.005 (1.001-1.035) Urine Protein Negative (Negative) Urine Ketones Negative (Negative) Urine Blood Negative /uL (Negative) Urine Nitrite Negative (Negative) Urine Bilirubin Negative (Negative) Urine Urobilinogen Normal mg/dL (Negative) Urine Leukocyte Esterase 2+ /uL (Negative) Urine RBC 2 /hpf (0 - 4) Urine Microscopic WBC 4 /HPF (0-5) Urine Squamous Epithelial Cells None seen /hpf (<5) Urine Bacteria Few /hpf (None Seen) H Urine Glucose Normal mg/dL (Normal) Microbiology Microbiology Date/Time Source Procedure Growth Status 10/26/24 20:45 Voided Urine Urine Culture - Preliminary Resulted Labs and/or images reviewed: Labs reviewed by me, Image(s) reviewed by me Assessment/Plan Assessment/Plan Acute Comminuted displaced intertrochanteric fracture proximal right femur with involvement of the greater and lesser trochanter. Dr. Pagan planning for surgery Tuesday Mechanical fall Anxiety Arthritis Asthma CKD COPD History of CVA History of depression Diabetes UTI Hypertensive urgency Hyperlipidemia GERD Possible Decubitus ulcer on the back: Wound care nurse consult History of two L spine surgeries and to C-spine surgeries Echo 65 % ejection fraction Patient Left AMA from [facility] post-acute Caregiver Cassie [phone] at bedside Per patient she was never on hospice Plan discussed with: Patient My Orders Orders - COTY TOWNSEND MD Procedure Category Date Status Time * Orthopedic Consult CONS 10/27/24 Transmitted 11:53 * Cardiology Consult CONS 10/27/24 Transmitted 12:02 Apply Barrier Cream MARIMAR 10/27/24 In Process 13:40 * Dietary Consult CONS 10/27/24 Transmitted 18:45 Date of Service: October 28, 2024 Billing Provider: COTY TOWNSEND MD Common Visit Codes: [id number] INP/OBS CARE(HIGH) COTY TOWNSEND MD October 28, 2024 11:27
--- NOTE | 2024-10-28 11:43 | DVH ---
XY CHEST XRAY 1 VIEW, HISTORY: Procedure COMPARISON: XY CHEST XRAY 1 VIEW on DOS: 10/10/24, XY CHEST PORTABLE on DOS: 10/07/23, XY CHEST PORTABL E on DOS: 03/18/23 XY CHEST XRAY 1 VIEW on DOS: 10/10/24, XY CHEST PORTABLE on DOS: 10/07/23, XY CHEST PORTABLE on DOS: TECHNICAL DATA: 1 view of the chest was obtained. FINDINGS: Lines and tubes: None Cardiomediastinal silhouette: normal Pulmonary vasculature: normal Lung expansion: normal Lung airspace: normal Lung interstitium: normal Pleura: normal Pneumothorax: no Bones: Unremarkable Other: no IMPRESSION: No acute intrathoracic abnormality.
--- NOTE | 2024-10-28 15:45 | DVHINCON2 ---
Date of service: October 28, 2024 Reason for Consultation Right hip intertrochanteric fracture History of Present Illness 68-year-old female with multiple medical condition status post mechanical fall yesterday. Patient had immediate pain/swelling/inability to bear weight on her right lower extremity. Patient complains of severe pain in right hip. Patient denies any other extremity new onset pain. Patient denies any current chest pain shortness of breath abdominal pain nausea vomiting or diarrhea. Past Medical History Past Medical History Anxiety, Arthritis, Asthma, CKF (stage 4), COPD, CVA (x2), Depression, DM (Neuropathy w/ DM), GERD, High Lipids, HTN Past Surgical History Hysterectomy, 2 spine Sx, 1 neck Sx, bilateral carpal tunnel surgery Family History: Cancer (Lung cancer) G8 MOTHER G8 FATHER (Lung cancer) Cardiovascular disease Diabetes mellitus G8 BROTHER FH: lung cancer G8 MOTHER G8 FATHER FH: lupus G8 SISTER Family history: Cardiovascular disease G8 BROTHER Hypertension G8 FATHER G8 MOTHER G8 FATHER Allergies: Coded Allergies: NO KNOWN ALLERGIES (Unverified , 09/29/20) Home Meds Active Scripts Cefdinir (Cefdinir) 300 Mg Cap, 1 CAP PO BID, #14 CAP Prov:FILI CONTRERAS MD 10/10/23 Clonidine Hydrochloride (Clonidine Hcl) 0.3 Mg Tab, 1 TAB PO BID, #120 TAB Prov:FILI CONTRERAS MD 10/10/23 Hydralazine HCl (Hydralazine HCl) 25 Mg Tab, 50 MG PO TID, #120 TAB Prov:FILI CONTRERAS MD 10/10/23 Furosemide (Lasix) 40 Mg Tab, 40 MG PO BID, #30 TAB Prov:JAYDEN SHEIKH 11/04/22 Atenolol (Atenolol) 100 Mg Tab, 100 MG PO DAILY for 30 Days, #30 MG Prov:FRED STEPHEN MD 07/27/21 Amlodipine Besylate (Amlodipine Besylate) 10 Mg Tab, 1 TAB PO BID, #30 TAB 5 Refills Prov:FILI CONTRERAS MD 09/13/20 Reported Medications Clonazepam (Clonazepam) 1 Mg Tab, 0.25 TAB PO TID, #30 TAB 10/27/24 Atenolol (Atenolol) 100 Mg Tab, 100 MG PO QID for 30 Days, MG 10/27/24 Pantoprazole Sodium Sesquihydr (Pantoprazole Sodium) 40 Mg Tab, PO DAILY, TAB 10/27/24 Lurasidone Hydrochloride (LATUDA) 40 Mg Tab, 1 TAB PO QPM, #30 TAB 1 Refill 10/11/24 Glipizide (Glipizide) 5 Mg Tab, 1 TAB PO BID, #60 TAB 3 Refills 10/11/24 Tizanidine Hydrochloride (Zanaflex) 4 Mg Tab, 1 TAB PO QPM, #30 TAB 10/11/24 Amitriptyline Hcl (Amitriptyline Hcl) 25 Mg Tab, 1 TAB PO QPM, #30 TAB 5 Refills 10/11/24 Hydrocodone-Acetaminophen (Hydrocodone Bitartrate/AC 10-325 mg) 1 Tab Tab, 1 TAB PO Q8HPRN PRN for PAIN SCALE 7 THRU 10, TAB 10/09/23 Cholecalciferol (VITAMIN D-3) 2,000 Unit Tab, 2000 UNIT PO DAILY, TAB 12/28/14 Gabapentin (Gabapentin) 300 Mg Cap, 1 CAP PO BID, #90 CAP 1 Refill 06/05/14 Discontinued Reported Medications Clonazepam (Clonazepam) 1 Mg Tab, 0.25 TAB PO BID, #60 TAB 10/09/23 Omeprazole (PRILOSEC) 20 Mg Cap, 1 CAP PO DAILY, #90 CAP 2 Refills 06/05/14 Current Medications Current Medications Medications (Trade) Dose Ordered Sig/Sandy Route PRN Reason Start Time Stop Time Status Last Admin Ceftriaxone Sodium 50 ml @ 100 mls/hr DAILY@2100 IV 10/27/24 21:00 10/27/24 21:02 Atenolol (Tenormin Tablet) 100 mg DAILY PO 10/28/24 10:00 10/28/24 09:21 Review of Systems Ten point review of systems is negative except for HPI Vital Signs Vital Signs Date Time Temp Pulse Resp B/P (MAP) Pulse Ox O2 Delivery O2 Flow Rate FiO2 10/28/24 13:49 160/65 10/28/24 12:51 98.2 82 18 98 98.2 10/28/24 08:00 Room Air* 0 21 Physical Exam No apparent distress Alert and oriented x3 Verbal well-nourished well-developed Right lower extremity: Short/externally rotated Positive TA/GS/EHL/FHL Foot warm well perfused Labs/Diagnostic Data Labs Test 10/28/24 10:55 10/28/24 06:56 10/26/24 20:45 Range/Units POC Glucose 142 H 70-106 mg/dl White Blood Count 9.5 # 4.4-10.8 10^3/uL Red Blood Count 3.82 L 4.0-5.20 10^6/uL Hemoglobin 11.0 #L 12.2-16.2 g/dL Hematocrit 32.4 #L 36.0-46.0 % Mean Corpuscular Volume 84.7 80.0-100.0 fL Mean Corpuscular Hemoglobin 28.7 28.0-32.0 pg Mean Corpuscular Hemoglobin Concent 33.9 32.0-36.0 g/dL Red Cell Distribution Width 14.0 11.8-14.3 % Platelet Count 616 H 140-450 10^3/uL Mean Platelet Volume 6.2 L 6.9-10.8 fL Neutrophils (%) (Auto) 70.6 37.0-80.0 % Lymphocytes (%) (Auto) 17.5 10.0-50.0 % Monocytes (%) (Auto) 8.7 0.0-12.0 % Eosinophils (%) (Auto) 2.5 0.0-7.0 % Basophils (%) (Auto) 0.7 0.0-2.0 % Neutrophils # (Auto) 6.7 1.6-8.6 10 ^3/uL Lymphocytes # (Auto) 1.7 0.4-5.4 10 ^3/uL Monocytes # (Auto) 0.8 0-1.3 10 ^3/uL Eosinophils # (Auto) 0.2 0-0.8 10 ^3/uL Basophils # (Auto) 0.1 0-0.2 10 ^3/uL Nucleated Red Blood Cells 0.0 % Prothrombin Time 10.7 9.3-11.8 sec Prothrombin Time INR 1.01 0.9-1.15 Activated Partial Thromboplast Time 27.7 24.5-34.5 SEC Sodium Level 141 136-145 mmol/L Potassium Level 4.2 3.5-5.1 mmol/L Chloride Level 108 H 98-107 mmol/L Carbon Dioxide Level 25 20-31 mmol/L Anion Gap 8 5-15 Blood Urea Nitrogen 17 9-23 mg/dL Creatinine 1.55 H 0.550-1.02 mg/dL Glomerular Filtration Rate Calc 36 >90 mL/min BUN/Creatinine Ratio 11.0 10.0-20.0 Serum Glucose 142 H 74-106 mg/dL Calcium Level 10.6 H 8.7-10.4 mg/dL Total Bilirubin 0.2 0.2-1.0 mg/dL Aspartate Amino Transferase (AST) 11 L 13-40 U/L Alanine Aminotransferase (ALT) 14 7-40 U/L Alkaline Phosphatase 178 H 46-116 U/L Total Protein 7.0 5.7-8.2 g/dL Albumin 4.2 3.2-4.8 g/dL Urine Color Light-yellow Yellow Urine Clarity Clear Clear Urine pH 5.5 5.0-9.0 Urine Specific [place] 1.005 1.001-1.035 Urine Protein Negative Negative Urine Ketones Negative Negative Urine Blood Negative Negative /uL Urine Nitrite Negative Negative Urine Bilirubin Negative Negative Urine Urobilinogen Normal Negative mg/dL Urine Leukocyte Esterase 2+ Negative /uL Urine RBC 2 0 - 4 /hpf Urine Microscopic WBC 4 0-5 /HPF Urine Squamous Epithelial Cells None seen <5 /hpf Urine Bacteria Few H None Seen /hpf Urine Glucose Normal Normal mg/dL Microbiology Date/Time Source Procedure Growth Status 10/27/24 06:16 Nose MRSA Screen - Final Complete 10/26/24 20:45 Voided Urine Urine Culture - Preliminary Resulted Plan/Recommendation 68-year-old female status post mechanical fall with a comminuted right hip intertrochanteric fracture 1. I had a long and thorough discussion with the patient regarding the condition. Nonoperative and operative management were discussed in depth. Risks benefits alternatives reviewed were reviewed. Risks include but not exclusive to bleeding infection nerve injury chronic pain nonunion malunion need for further surgery blood clots cardiac and pulmonary complications amputation . I had a long discussion regarding the morbidity and mortality of hip fracture in the elderly. Patient understands and wishes to proceed with surgical intervention 2. Plan for open reduction internal fixation of right hip fracture on 10/29/2024 3. NPO/IV fluids 4. Pain control Plan discussed with: Patient ABRAM MICHELE . October 28, 2024 15:45
[2024-10-28] MEDS: LABETALOL HCL 20 MG/4 ML VL IV PRN (21:27)
--- NOTE | 2024-10-28 23:12 | DVHPN2 ---
Progress Note - Dictate Date Seen: October 28, 2024 Medical Necessity Reason Pt with a Central, PICC or Fol: No Subjective Patient was seen and evaluated in follow up. Patient is c/o hip pain. She is currently refusing to sign consent forms for open reduction internal fixation of right hip fracture. 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 Telemetry reviewed. vital signs Vital Sign Date Time Temp Pulse Resp B/P (MAP) Pulse Ox O2 Delivery O2 Flow Rate FiO2 10/28/24 15:56 77 20 165/60 10/28/24 12:51 98.2 98 98.2 10/28/24 08:00 Room Air* 0 21 Total Intake and Output 10/27/24 10/27/24 10/28/24 15:00 23:00 07:00 Intake Total 850 ml 600 ml Output Total 1150 ml 800 ml Balance -300 ml -200 ml medications Current Medications Medications Dose Ordered Sig/Sandy Route Start Time Stop Time Status Last Admin Dose Admin Hydralazine HCl 10 mg Q6HP PRN IV 10/26/24 21:30 10/28/24 15:56 10 MG Gabapentin 300 mg BID PO 10/26/24 22:00 10/28/24 09:21 300 MG Amlodipine Besylate 10 mg DAILY PO 10/27/24 10:00 10/28/24 09:20 10 MG Diagnostic Test (Pha) 1 strip ACHS 10/26/24 22:00 10/28/24 16:41 1 STRIP Insulin Human Regular ACHS SC 10/26/24 22:00 10/28/24 16:45 2 UNITS Dextrose 50 ml UD PRN IV 10/26/24 21:30 Acetaminophen/ Hydrocodone Bitart 1 tab Q4HP PRN PO 10/26/24 21:30 Ondansetron HCl 4 mg Q4HP PRN IV 10/26/24 21:30 Docusate Sodium 100 mg BIDPRN PRN PO 10/26/24 21:30 Acetaminophen 650 mg Q6HP PRN PO 10/26/24 21:30 Morphine Sulfate 2 mg Q4HPRN PRN IV 10/26/24 21:30 10/28/24 15:56 2 MG Ceftriaxone Sodium 50 ml @ 100 mls/hr DAILY@2100 IV 10/27/24 21:00 10/27/24 21:02 100 MLS/HR Nitroglycerin 0.4 mg Q5MINP PRN SL 10/26/24 23:15 Morphine Sulfate 2 mg Q30M PRN IV 10/26/24 23:15 Labetalol HCl 10 mg Q4HPRN PRN IV 10/27/24 14:00 Atenolol 100 mg DAILY PO 10/28/24 10:00 10/28/24 09:21 100 MG Hydralazine HCl 25 mg Q8HR PO 10/27/24 14:00 10/28/24 13:49 25 MG objective GENERAL: Alert and oriented x 3. No acute distress. EYES: PERRL, EOMI. Anicteric. HENT: Moist mucous membranes. LUNGS: Clear to auscultation bilaterally. CARDIOVASCULAR: Regular rate and rhythm. ABDOMEN: Soft, nontender and nondistended. EXTREMITIES: No edema. NEUROLOGIC: No focal neurological deficits. SKIN: Warm, dry. laboratory and microbiology Laboratory Tests 10/28/24 06:56 Test 10/28/24 06:56 Range/Units Serum Glucose 142 H 74-106 mg/dL Problem List Pre-op Cardiac Assessment. Right intertrochanteric fracture. Uncontrolled HTN. History of CVA. CKD. Tobacco use. Assessment/Plan Continued all current supportive medical care. Morphine and [place] for pain management. Amlodipine, Atenolol, Hydralzine, Labetalol. IV antibiotics as ordered. IV Hydralazine for SBP > 150. Additional plan as per the hospital course. Dietary Evaluation Review Comments: 1) Initiate Glucerna bid. Encourage optimal PO intake 2) Initiate vitamin C @ 500 mg bid and zinc sulfate @ 220 mg qd for 7-10 days 3) Collect HbA1c 4) Follow-up with physical therapy 5) Follow-up with nephrology and cardiology 6) Continue to monitor I&O, labs, and skin integrity Expected Outcomes/Goals: 1) appetite and labs to improve 2) wound to improve 3) follow-up in 3-5 days Plan discussed with: Patient KALEIGH ARAMBULA MD October 28, 2024 17:21
[2024-10-29] VITALS (20 sets, daily range): BP systolic 143–182; BP diastolic 61–78; PULSE 75–91; RESP 14–18; TEMP 97.8–98.2; O2SAT 97–100
[2024-10-29] MEDS ORDERED: ceFAZolin 2 GM/D5W50ml 50 ML IV ONE (08:32)
--- NOTE | 2024-10-29 08:39 | ECG ---
[facility] Test Date: 2024-10-28 Test Time: 23:45:45 Pat Name: RONEY STONE Department: Room: 0298T B Gender: F Radiologist Physician: MONROE : 1955 Requested By: AMADOU ORTA Order Number: [id number] Reading MD: Neil Ruiz Measurements Intervals [place] Rate: 80 P: 38 [place]: 171 QRS: 25 QRSD: 91 T: 30 QT: 378 QTc: 436 Interpretive Statements Sinus rhythm Probable left atrial enlargement Abnormal R-wave progression, early transition Left ventricular hypertrophy Electronically Signed On 10-31-2024 11:57:41 PDT by Neil Ruiz Please click the below link to view image of tracing.
[2024-10-29] MEDS ORDERED: fentaNYL CITRATE 100 MCG/2 ML VL ONE (08:52)
[2024-10-29] MEDS ORDERED: PROPOFOL 10 MG/ML 20 ML IV ONE (08:53)
[2024-10-29] MEDS ORDERED: MIDAZOLAM HCL 2MG/2ML 2ml VIAL (1mg/ml) ONE (08:53)
[2024-10-29] MEDS ORDERED: MORPHINE SULF PF 5 MG/10 ML VIAL ONE (08:53)
[2024-10-29] MEDS ORDERED: LIDOCAINE 2% (LOCAL ANESTH.) PF 5ml SDV ONE (09:00)
[2024-10-29] MEDS ORDERED: ONDANSETRON HCL 4 MG/2 ML VIAL ONE (09:14)
[2024-10-29] MEDS ORDERED: METOCLOPRAMIDE HCL 5MG/ml INJ 2ml VIAL ONE (09:14)
[2024-10-29] MEDS ORDERED: ePHEDrine SULFATE 50 MG/ML AMP ONE (09:23)
[2024-10-29] MEDS ORDERED: ONDANSETRON HCL 4 MG/2 ML VIAL IV PRN (10:15)
[2024-10-29] MEDS ORDERED: diphenhdrAMINE HCL 50 MG/1 ML VL IV PRN (10:15)
[2024-10-29] MEDS ORDERED: NALOXONE HCL 0.4 MG/ML VIAL IV PRN (10:15)
[2024-10-29] MEDS: HYDROcodone-ACET 5/325MG TAB PO PRN (12:30)
--- NOTE | 2024-10-29 13:45 | DVHPN2 ---
Reviewed: Care Plan, H&P, Labs, Medications, Previous Orders, Radiology Changes from previous H/P or p: No Changes, Changes Eyes: No Pain, No Vision change, No Conjunctivae inflammation, No Eyelid inflammation, No Other, No Redness ENT: No Ear pain, No Ear discharge, No Nose pain, No Nose discharge, No Nose congestion, No Mouth pain, No Mouth swelling, No Throat pain, No Throat swelling, No Other Cardiovascular: No Chest Pain, No Palpitations, No Orthopnea, No Paroxysmal Noc. Dyspnea, No Edema, No Lt Headedness, No Other Respiratory: No Cough, No Dry, No Shortness of breath, No SOB with excertion, No Wheezing, No Hemoptysis, No Pleuritic Pain, No Sputum, No Other Gastrointestinal: No Nausea, No Vomiting, No Abdominal Pain, No Diarrhea, No Constipation, No Melena, No Hematochezia, No Other Genitourinary: No Dysuria, No Frequency, No Incontinence, No Hematuria, No Retention, No Other Musculoskeletal: other (Hip pain); No neck pain, No shoulder pain, No arm pain, No back pain, No hand pain, No leg pain, No foot pain Skin: No Rash, No Lesions, No Jaundice, No Bruising, No Other Objective Vitals Vital Signs Date Time Temp Pulse Resp B/P (MAP) Pulse Ox O2 Delivery O2 Flow Rate FiO2 10/29/24 12:56 83 18 98 10/29/24 12:31 196/84 10/29/24 09:56 Room Air 0 10/29/24 09:56 98 10/29/24 09:56 97.1 97.1 Intake/Output Intake and Output 10/29/24 07:00 Intake Total 700 ml Output Total 1600 ml Balance -900 ml Intake Oral 650 ml IV Total 50 ml Output Urine Total 1600 ml Medications Current Medications Medications Dose Ordered Sig/Sandy Route Start Time Stop Time Status Last Admin Dose Admin Hydralazine HCl 10 mg Q6HP PRN IV 10/26/24 21:30 10/29/24 12:31 10 MG Gabapentin 300 mg BID PO 10/26/24 22:00 10/29/24 11:53 300 MG Amlodipine Besylate 10 mg DAILY PO 10/27/24 10:00 10/29/24 11:51 10 MG Diagnostic Test (Pha) 1 strip ACHS 10/26/24 22:00 10/29/24 12:06 1 STRIP Insulin Human Regular ACHS SC 10/26/24 22:00 10/29/24 12:16 3 UNITS Dextrose 50 ml UD PRN IV 10/26/24 21:30 Acetaminophen/ Hydrocodone Bitart 1 tab Q4HP PRN PO 10/26/24 21:30 10/29/24 12:30 1 TAB Ondansetron HCl 4 mg Q4HP PRN IV 10/26/24 21:30 Docusate Sodium 100 mg BIDPRN PRN PO 10/26/24 21:30 Acetaminophen 650 mg Q6HP PRN PO 10/26/24 21:30 Morphine Sulfate 2 mg Q4HPRN PRN IV 10/26/24 21:30 10/29/24 02:38 2 MG Ceftriaxone Sodium 50 ml @ 100 mls/hr DAILY@2100 IV 10/27/24 21:00 10/28/24 21:27 100 MLS/HR Nitroglycerin 0.4 mg Q5MINP PRN SL 10/26/24 23:15 Morphine Sulfate 2 mg Q30M PRN IV 10/26/24 23:15 Labetalol HCl 10 mg Q4HPRN PRN IV 10/27/24 14:00 10/28/24 21:27 10 MG Atenolol 100 mg DAILY PO 10/28/24 10:00 10/29/24 11:53 100 MG Hydralazine HCl 25 mg Q8HR PO 10/27/24 14:00 10/29/24 05:30 25 MG Enoxaparin Sodium 40 mg DAILY SC 10/30/24 10:00 UNV Cefazolin Sodium 50 ml @ 100 mls/hr Q8HR IV 10/29/24 14:00 10/30/24 06:29 UNV Diphenhydramine HCl 25 mg Q4HP PRN IV 10/29/24 10:15 UNV Ondansetron HCl 4 mg Q4HP PRN IV 10/29/24 10:15 UNV Naloxone HCl 0.2 mg Q5M PRN IV 10/29/24 10:15 10/29/24 10:21 UNV Ketorolac Tromethamine 30 mg Q6HP PRN IV 10/29/24 10:15 11/03/24 10:14 UNV Laboratory Results Laboratory Tests 10/28/24 06:56 Urinalysis Test 10/26/24 20:45 Urine Color Light-yellow (Yellow) Urine Clarity Clear (Clear) Urine pH 5.5 (5.0-9.0) Urine Specific [place] 1.005 (1.001-1.035) Urine Protein Negative (Negative) Urine Ketones Negative (Negative) Urine Blood Negative /uL (Negative) Urine Nitrite Negative (Negative) Urine Bilirubin Negative (Negative) Urine Urobilinogen Normal mg/dL (Negative) Urine Leukocyte Esterase 2+ /uL (Negative) Urine RBC 2 /hpf (0 - 4) Urine Microscopic WBC 4 /HPF (0-5) Urine Squamous Epithelial Cells None seen /hpf (<5) Urine Bacteria Few /hpf (None Seen) H Urine Glucose Normal mg/dL (Normal) Microbiology Microbiology Date/Time Source Procedure Growth Status 10/27/24 06:16 Nose MRSA Screen - Final Complete 10/26/24 20:45 Voided Urine Urine Culture - Final Escherichia coli Complete Labs and/or images reviewed: Labs reviewed by me, Image(s) reviewed by me Assessment/Plan Assessment/Plan Acute Comminuted displaced intertrochanteric fracture proximal right femur with involvement of the greater and lesser trochanter. Cardiology Dr. Reyes cleared for surgery, patient getting surgery today by Mechanical fall Anxiety Arthritis Asthma CKD COPD History of CVA History of depression Diabetes UTI Hypertensive urgency Hyperlipidemia GERD Possible Decubitus ulcer on the back: Wound care nurse consult History of two L spine surgeries and to C-spine surgeries Echo 65 % ejection fraction Patient Left AMA from [facility] post-acute Caregiver Cassie [phone] at bedside Per patient she was never on hospice Plan discussed with: Patient Date of Service: October 29, 2024 Billing Provider: COTY TOWNSEND MD Common Visit Codes: [id number] INP/OBS CARE(HIGH) COTY TOWNSEND MD October 29, 2024 13:45
[2024-10-29] MEDS: ceFAZolin 1GM/50ML 50 ML IV SCH (14:52)
--- NOTE | 2024-10-29 14:55 | ECG ---
[facility] Test Date: 2024-10-27 Test Time: 17:41:26 Pat Name: RONEY STONE Department: Room: 0298T B Gender: F Arc Cutter Plasma Arc: patricio : 1955 Requested By: AMADOU ORTA Order Number: [id number] Reading MD: Neil Ruiz Measurements Intervals [place] Rate: 79 P: 39 [place]: 172 QRS: 27 QRSD: 95 T: 35 QT: 376 QTc: 432 Interpretive Statements Sinus rhythm Electronically Signed On 10-31-2024 11:57:06 PDT by Neil Ruiz Please click the below link to view image of tracing.
--- NOTE | 2024-10-29 14:56 | ECG ---
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
[2024-10-29] MEDS: KETOROLAC TROMETH 30 MG/ML 1ML VIAL IV PRN (16:42)
[2024-10-29] MEDS: PANTOPRAZOLE 40 MG TAB PO ONE (20:56)
[2024-10-29] MEDS: AMITRIPTYLINE HCL 25 MG TAB PO SCH (20:57)
--- NOTE | 2024-10-29 22:32 | DVHPN2 ---
Progress Note - Dictate Date Seen: October 29, 2024 Medical Necessity Reason Pt with a Central, PICC or Fol: No Subjective Patient was seen and evaluated in follow up. Patient underwent ORIF of right hip and tolerated procedure well. BS are in the 180s. Telemetry reviewed. vital signs Vital Sign Date Time Temp Pulse Resp B/P (MAP) Pulse Ox O2 Delivery O2 Flow Rate FiO2 10/29/24 20:57 165/73 10/29/24 18:56 82 17 97 10/29/24 17:00 97.9 97.9 10/29/24 09:56 Room Air 0 10/29/24 09:56 98 Total Intake and Output 10/28/24 10/28/24 10/29/24 15:00 23:00 07:00 Intake Total 400 ml 300 ml Output Total 450 ml 1150 ml Balance -50 ml -850 ml medications Current Medications Medications Dose Ordered Sig/Sandy Route Start Time Stop Time Status Last Admin Dose Admin Hydralazine HCl 10 mg Q6HP PRN IV 10/26/24 21:30 10/29/24 18:29 10 MG Gabapentin 300 mg BID PO 10/26/24 22:00 10/29/24 20:57 300 MG Amlodipine Besylate 10 mg DAILY PO 10/27/24 10:00 10/29/24 11:51 10 MG Diagnostic Test (Pha) 1 strip ACHS 10/26/24 22:00 10/29/24 22:02 1 STRIP Insulin Human Regular ACHS SC 10/26/24 22:00 10/29/24 21:53 3 UNITS Dextrose 50 ml UD PRN IV 10/26/24 21:30 Acetaminophen/ Hydrocodone Bitart 1 tab Q4HP PRN PO 10/26/24 21:30 10/29/24 12:30 1 TAB Docusate Sodium 100 mg BIDPRN PRN PO 10/26/24 21:30 Acetaminophen 650 mg Q6HP PRN PO 10/26/24 21:30 Morphine Sulfate 2 mg Q4HPRN PRN IV 10/26/24 21:30 10/29/24 14:58 2 MG Nitroglycerin 0.4 mg Q5MINP PRN SL 10/26/24 23:15 Morphine Sulfate 2 mg Q30M PRN IV 10/26/24 23:15 Labetalol HCl 10 mg Q4HPRN PRN IV 10/27/24 14:00 10/29/24 16:43 10 MG Atenolol 100 mg DAILY PO 10/28/24 10:00 10/29/24 11:53 100 MG Hydralazine HCl 25 mg Q8HR PO 10/27/24 14:00 10/29/24 20:57 25 MG Enoxaparin Sodium 40 mg DAILY SC 10/30/24 10:00 Cefazolin Sodium 50 ml @ 100 mls/hr Q8HR IV 10/29/24 14:00 10/30/24 06:29 10/29/24 20:56 100 MLS/HR Diphenhydramine HCl 25 mg Q4HP PRN IV 10/29/24 10:15 Ondansetron HCl 4 mg Q4HP PRN IV 10/29/24 10:15 Ketorolac Tromethamine 30 mg Q6HP PRN IV 10/29/24 10:15 11/03/24 10:14 10/29/24 16:42 30 MG Amitriptyline HCl 25 mg HS PO 10/29/24 22:00 10/29/24 20:57 25 MG Pantoprazole Sodium 40 mg DAILY PO 10/30/24 10:00 objective GENERAL: Alert and oriented x 3. No acute distress. EYES: PERRL, EOMI. Anicteric. HENT: Moist mucous membranes. LUNGS: Clear to auscultation bilaterally. CARDIOVASCULAR: Regular rate and rhythm. ABDOMEN: Soft, nontender and nondistended. EXTREMITIES: No edema. NEUROLOGIC: No focal neurological deficits. SKIN: Warm, dry. laboratory and microbiology Laboratory Tests 10/28/24 06:56 Test 10/28/24 06:56 Range/Units Serum Glucose 142 H 74-106 mg/dL Problem List Pre-op Cardiac Assessment. Right intertrochanteric fracture. Uncontrolled HTN. History of CVA. CKD. Tobacco use. Assessment/Plan Continued all current supportive medical care. Morphine and [place] for pain management. Amlodipine, Atenolol, Hydralazine, Labetalol. IV antibiotics as ordered. IV Hydralazine for SBP > 150. Additional plan as per the hospital course. Dietary Evaluation Review Comments: 1) Initiate Glucerna bid. Encourage optimal PO intake 2) Initiate vitamin C @ 500 mg bid and zinc sulfate @ 220 mg qd for 7-10 days 3) Collect HbA1c 4) Follow-up with physical therapy 5) Follow-up with nephrology and cardiology 6) Continue to monitor I&O, labs, and skin integrity Expected Outcomes/Goals: 1) appetite and labs to improve 2) wound to improve 3) follow-up in 3-5 days Plan discussed with: Patient KALEIGH ARAMBULA MD October 29, 2024 22:32
[2024-10-30] VITALS (23 sets, daily range): BP systolic 149–173; BP diastolic 64–78; PULSE 81–90; RESP 16–18; TEMP 98–98.4; O2SAT 94–100
--- NOTE | 2024-10-30 07:05 | DVHOP2 ---
Operative Report - 2 Report Details Date: 10/29/24 Preop Diagnosis: Right hip intertrochanteric fracture Postop Diagnosis: as above Surgeon: Ivan Pagan MD Corporate Ethics Officer: Neo RANGEL Anesthesiologist: RAFFY Anesthesia: Regional Implant: ITS Short nail with lag screw, set screw, distal locking screw Consent: The patient was informed of the risks and benefits of the procedure. These include but are not limited to complications of anesthesia, postoperative infection, incomplete relief of symptoms, recurrence of symptoms, damage to blood vessels, nerves and tendons, deep venous thrombosis, pulmonary embolism and possible need for repeat surgery in the future. Estimated Blood Loss: 50 cc Name of Procedure Performed Open reduction internal fixation of right hip fracture, intraop fluoro Procedure Details Procedure Details: FINDINGS: IT fracture, reduced on the fracture table. DESCRIPTION OF PROCEDURE: In the preoperative holding area, the consent was reviewed and the appropriate extremity was verified by the patient and marked with my initials. The patient was then transferred to the operating theatre. Patient was placed on a fracture table. Appropriate anesthetia was induced. All bony prominences were well padded. A time out was performed verifying the side and site of surgery according to standard protocol. Preoperative antibiotics were given. The extremity was then prepped and draped in the usual sterile fashion. Using c-arm, the fracture was reduced using the fracture table and a combination of maneuvers including traction, internal rotation, and flexion. An incision was made over the greater trochanter confirming correct position with c-arm. A guide wire was drilled into the tip of the greater trochanter, centered A to P. We used the starting reamer to gain entry to the femoral canal. A short nail was then placed. A guide pin was then drilled in the center of the femoral head confirmed using fluoroscopy. We measured the screw lengths. Using a cannulated drill, we drilled the lateral cortex. The screws were then introduced. Once positioned, we once again confirmed that the screws were with the femoral head. Cerament placed into fracture site. Attention was turned distally. We used the targeting device to drill through the nail and the femur. This was measured using the device, and the screw was placed with good purchase. Final xrays were taken showing the hardware in perfect position. The wound was copiously irrigated. No fractures were seen on the rest of the femur. The fascia was closed with #1 Vicryl, the skin closed #2-0 Vicryl, and rito. A dry sterile dressing was placed on the patient. The patient was transferred to the recovery room in stable condition. Specimen: Postop Plan: WBAT with walker PT pain control DVT ppx follow up in [facility] ortho clinic in 2 weeks Condition Good Disposition Still a Patient IVAN PAGAN MD October 30, 2024 07:05
--- NOTE | 2024-10-30 07:58 | DVHPN2 ---
Progress Note Date Seen: October 30, 2024 Medical Necessity Reason Pt with a Central, PICC or Fol: Yes The following are medically ne: Tinsley Catheter Subjective Patient reports: No new complaints Objective vital signs Vital Sign Date Time Temp Pulse Resp B/P (MAP) Pulse Ox O2 Delivery O2 Flow Rate FiO2 10/30/24 06:56 86 18 96 10/30/24 06:36 165/77 10/30/24 05:00 98.1 98.1 10/29/24 20:00 Room Air* 0 21 Total Intake and Output 10/29/24 10/29/24 10/30/24 15:00 23:00 07:00 Intake Total 100 ml 350 ml 550 ml Output Total 450 ml Balance 100 ml 350 ml 100 ml medications Current Medications Medications Dose Ordered Sig/Sandy Route Start Time Stop Time Status Last Admin Dose Admin Hydralazine HCl 10 mg Q6HP PRN IV 10/26/24 21:30 10/30/24 06:04 10 MG Gabapentin 300 mg BID PO 10/26/24 22:00 10/29/24 20:57 300 MG Amlodipine Besylate 10 mg DAILY PO 10/27/24 10:00 10/29/24 11:51 10 MG Diagnostic Test (Pha) 1 strip ACHS 10/26/24 22:00 10/30/24 06:05 1 STRIP Insulin Human Regular ACHS SC 10/26/24 22:00 10/30/24 06:05 2 UNITS Dextrose 50 ml UD PRN IV 10/26/24 21:30 Acetaminophen/ Hydrocodone Bitart 1 tab Q4HP PRN PO 10/26/24 21:30 10/29/24 12:30 1 TAB Docusate Sodium 100 mg BIDPRN PRN PO 10/26/24 21:30 Acetaminophen 650 mg Q6HP PRN PO 10/26/24 21:30 Morphine Sulfate 2 mg Q4HPRN PRN IV 10/26/24 21:30 10/30/24 06:36 2 MG Nitroglycerin 0.4 mg Q5MINP PRN SL 10/26/24 23:15 Morphine Sulfate 2 mg Q30M PRN IV 10/26/24 23:15 Labetalol HCl 10 mg Q4HPRN PRN IV 10/27/24 14:00 10/30/24 00:17 10 MG Atenolol 100 mg DAILY PO 10/28/24 10:00 10/29/24 11:53 100 MG Hydralazine HCl 25 mg Q8HR PO 10/27/24 14:00 10/30/24 05:10 25 MG Enoxaparin Sodium 40 mg DAILY SC 10/30/24 10:00 Diphenhydramine HCl 25 mg Q4HP PRN IV 10/29/24 10:15 Ondansetron HCl 4 mg Q4HP PRN IV 10/29/24 10:15 Ketorolac Tromethamine 30 mg Q6HP PRN IV 10/29/24 10:15 11/03/24 10:14 10/30/24 05:21 30 MG Amitriptyline HCl 25 mg HS PO 10/29/24 22:00 10/29/24 20:57 25 MG Pantoprazole Sodium 40 mg DAILY PO 10/30/24 10:00 Examination: GENERAL:Normal, MSK:Abnormal laboratory and microbiology Laboratory Tests 10/28/24 06:56 Test 10/28/24 06:56 Range/Units Serum Glucose 142 H 74-106 mg/dL Microbiology Date/Time Source Procedure Growth Status 10/27/24 06:16 Nose MRSA Screen - Final Complete 10/26/24 20:45 Voided Urine Urine Culture - Final Escherichia coli Complete Problem List/Assessment/Plan Problem List/Assessment/Plan 68 year old female who is s/p ORIF right hip POD 1 1. Pain control 2. WBAT RLE with use of walker 3. Aquacel dressing to remain in place for 2 weeks 4. clear for discharge from orthopedic standpoint 5. follow up in 2 weeks at [facility] ortho clinic for staple removal Plan discussed with: Patient Dietary Evaluation Review Comments: 1) Initiate Glucerna bid. Encourage optimal PO intake 2) Initiate vitamin C @ 500 mg bid and zinc sulfate @ 220 mg qd for 7-10 days 3) Collect HbA1c 4) Follow-up with physical therapy 5) Follow-up with nephrology and cardiology 6) Continue to monitor I&O, labs, and skin integrity Expected Outcomes/Goals: 1) appetite and labs to improve 2) wound to improve 3) follow-up in 3-5 days Date of Service: October 30, 2024 Billing Provider: ABRAM MICHELE MD Common Visit Codes: NOT BILLABLE HUSSAIN OMER NP October 30, 2024 07:58
[2024-10-30] MEDS: PANTOPRAZOLE 40 MG TAB PO SCH (10:35)
[2024-10-30] MEDS: ENOXAPARIN SOD 40 MG/0.4 ML SYRINGE SC SCH (10:36)
--- NOTE | 2024-10-30 13:47 | DVHPN2 ---
Reviewed: Care Plan, H&P, Labs, Medications, Previous Orders, Radiology Changes from previous H/P or p: No Changes Eyes: No Pain, No Vision change, No Conjunctivae inflammation, No Eyelid inflammation, No Other, No Redness ENT: No Ear pain, No Ear discharge, No Nose pain, No Nose discharge, No Nose congestion, No Mouth pain, No Mouth swelling, No Throat pain, No Throat swelling, No Other Cardiovascular: No Chest Pain, No Palpitations, No Orthopnea, No Paroxysmal Noc. Dyspnea, No Edema, No Lt Headedness, No Other Respiratory: No Cough, No Dry, No Shortness of breath, No SOB with excertion, No Wheezing, No Hemoptysis, No Pleuritic Pain, No Sputum, No Other Gastrointestinal: No Nausea, No Vomiting, No Abdominal Pain, No Diarrhea, No Constipation, No Melena, No Hematochezia, No Other Genitourinary: No Dysuria, No Frequency, No Incontinence, No Hematuria, No Retention, No Other Musculoskeletal: other (Hip pain); No neck pain, No shoulder pain, No arm pain, No back pain, No hand pain, No leg pain, No foot pain Skin: No Rash, No Lesions, No Jaundice, No Bruising, No Other Objective Vitals Vital Signs Date Time Temp Pulse Resp B/P (MAP) Pulse Ox O2 Delivery O2 Flow Rate FiO2 10/30/24 12:56 85 18 97 10/30/24 10:36 158/66 10/30/24 09:00 98.4 98.4 10/30/24 08:00 Room Air* 0 21 Intake/Output Intake and Output 10/30/24 07:00 Intake Total 1000 ml Output Total 450 ml Balance 550 ml Intake Oral 800 ml IV Total 200 ml Output Urine Total 450 ml Medications Current Medications Medications Dose Ordered Sig/Sandy Route Start Time Stop Time Status Last Admin Dose Admin Hydralazine HCl 10 mg Q6HP PRN IV 10/26/24 21:30 10/30/24 06:04 10 MG Gabapentin 300 mg BID PO 10/26/24 22:00 10/30/24 10:34 300 MG Amlodipine Besylate 10 mg DAILY PO 10/27/24 10:00 10/30/24 10:35 10 MG Diagnostic Test (Pha) 1 strip ACHS 10/26/24 22:00 10/30/24 11:30 1 STRIP Insulin Human Regular ACHS SC 10/26/24 22:00 10/30/24 12:18 4 UNITS Dextrose 50 ml UD PRN IV 10/26/24 21:30 Acetaminophen/ Hydrocodone Bitart 1 tab Q4HP PRN PO 10/26/24 21:30 10/29/24 12:30 1 TAB Docusate Sodium 100 mg BIDPRN PRN PO 10/26/24 21:30 Acetaminophen 650 mg Q6HP PRN PO 10/26/24 21:30 Morphine Sulfate 2 mg Q4HPRN PRN IV 10/26/24 21:30 10/30/24 06:36 2 MG Nitroglycerin 0.4 mg Q5MINP PRN SL 10/26/24 23:15 Morphine Sulfate 2 mg Q30M PRN IV 10/26/24 23:15 Labetalol HCl 10 mg Q4HPRN PRN IV 10/27/24 14:00 10/30/24 00:17 10 MG Atenolol 100 mg DAILY PO 10/28/24 10:00 10/30/24 10:36 100 MG Hydralazine HCl 25 mg Q8HR PO 10/27/24 14:00 10/30/24 05:10 25 MG Enoxaparin Sodium 40 mg DAILY SC 10/30/24 10:00 10/30/24 10:36 40 MG Diphenhydramine HCl 25 mg Q4HP PRN IV 10/29/24 10:15 Ondansetron HCl 4 mg Q4HP PRN IV 10/29/24 10:15 Ketorolac Tromethamine 30 mg Q6HP PRN IV 10/29/24 10:15 11/03/24 10:14 10/30/24 11:35 30 MG Amitriptyline HCl 25 mg HS PO 10/29/24 22:00 10/29/24 20:57 25 MG Pantoprazole Sodium 40 mg DAILY PO 10/30/24 10:00 10/30/24 10:35 40 MG Laboratory Results Laboratory Tests 10/28/24 06:56 Urinalysis Test 10/26/24 20:45 Urine Color Light-yellow (Yellow) Urine Clarity Clear (Clear) Urine pH 5.5 (5.0-9.0) Urine Specific [place] 1.005 (1.001-1.035) Urine Protein Negative (Negative) Urine Ketones Negative (Negative) Urine Blood Negative /uL (Negative) Urine Nitrite Negative (Negative) Urine Bilirubin Negative (Negative) Urine Urobilinogen Normal mg/dL (Negative) Urine Leukocyte Esterase 2+ /uL (Negative) Urine RBC 2 /hpf (0 - 4) Urine Microscopic WBC 4 /HPF (0-5) Urine Squamous Epithelial Cells None seen /hpf (<5) Urine Bacteria Few /hpf (None Seen) H Urine Glucose Normal mg/dL (Normal) Microbiology Microbiology Date/Time Source Procedure Growth Status 10/27/24 06:16 Nose MRSA Screen - Final Complete 10/26/24 20:45 Voided Urine Urine Culture - Final Escherichia coli Complete Labs and/or images reviewed: Labs reviewed by me, Image(s) reviewed by me Assessment/Plan Assessment/Plan Acute Comminuted displaced intertrochanteric fracture proximal right femur with involvement of the greater and lesser trochanter. Cardiology Dr. Reyes cleared for surgery, Status post Open reduction internal fixation of right hip fracture, by Dr Pagan on 10-29-24 Mechanical fall Anxiety Arthritis Asthma CKD COPD History of CVA History of depression Diabetes UTI Hypertensive urgency Hyperlipidemia GERD Possible Decubitus ulcer on the back: Wound care nurse consult History of two L spine surgeries and to C-spine surgeries Echo 65 % ejection fraction Patient Left AMA from [facility] post-acute Caregiver Cassie [phone] at bedside Per patient she was never on hospice Physical Therapy ordered Plan discussed with: Patient Date of Service: October 30, 2024 Billing Provider: COTY TOWNSEND MD Common Visit Codes: [id number] INP/OBS CARE(HIGH) COTY TOWNSEND MD October 30, 2024 13:47
--- NOTE | 2024-10-30 15:50 | DVH ---
C-ARM FLUOROSCOPY: PROCEDURE: Right hip ORIF FLUOROSCOPY TIME: 54.5 seconds DAP: 3.06 mgy FINDINGS: Spot intraoperative C arm radiographs demonstrating right hip ORIF. IMPRESSION: Please refer to surgical report for detailed findings.
--- NOTE | 2024-10-30 21:57 | DVHPN2 ---
Progress Note - Dictate Date Seen: October 30, 2024 Medical Necessity Reason Pt with a Central, PICC or Fol: Yes The following are medically ne: Tinsley Catheter Subjective Patient was seen and evaluated in follow up. Patient is complaining of right hip pain at incision site. Patient is pending PT eval. BS in the 150s. Telemetry reviewed. vital signs Vital Sign Date Time Temp Pulse Resp B/P (MAP) Pulse Ox O2 Delivery O2 Flow Rate FiO2 10/30/24 17:00 98.3 83 16 151/64 (93) 99 98.3 10/30/24 08:00 Room Air* 0 21 Total Intake and Output 10/29/24 10/29/24 10/30/24 15:00 23:00 07:00 Intake Total 100 ml 350 ml 550 ml Output Total 450 ml Balance 100 ml 350 ml 100 ml medications Current Medications Medications Dose Ordered Sig/Sandy Route Start Time Stop Time Status Last Admin Dose Admin Hydralazine HCl 10 mg Q6HP PRN IV 10/26/24 21:30 10/30/24 15:59 10 MG Gabapentin 300 mg BID PO 10/26/24 22:00 10/30/24 10:34 300 MG Amlodipine Besylate 10 mg DAILY PO 10/27/24 10:00 10/30/24 10:35 10 MG Diagnostic Test (Pha) 1 strip ACHS 10/26/24 22:00 10/30/24 16:47 1 STRIP Insulin Human Regular ACHS SC 10/26/24 22:00 10/30/24 16:54 2 UNITS Dextrose 50 ml UD PRN IV 10/26/24 21:30 Acetaminophen/ Hydrocodone Bitart 1 tab Q4HP PRN PO 10/26/24 21:30 10/29/24 12:30 1 TAB Docusate Sodium 100 mg BIDPRN PRN PO 10/26/24 21:30 Acetaminophen 650 mg Q6HP PRN PO 10/26/24 21:30 Morphine Sulfate 2 mg Q4HPRN PRN IV 10/26/24 21:30 10/30/24 14:23 2 MG Nitroglycerin 0.4 mg Q5MINP PRN SL 10/26/24 23:15 Morphine Sulfate 2 mg Q30M PRN IV 10/26/24 23:15 Labetalol HCl 10 mg Q4HPRN PRN IV 10/27/24 14:00 10/30/24 00:17 10 MG Atenolol 100 mg DAILY PO 10/28/24 10:00 10/30/24 10:36 100 MG Hydralazine HCl 25 mg Q8HR PO 10/27/24 14:00 10/30/24 14:21 25 MG Enoxaparin Sodium 40 mg DAILY SC 10/30/24 10:00 10/30/24 10:36 40 MG Diphenhydramine HCl 25 mg Q4HP PRN IV 10/29/24 10:15 Ondansetron HCl 4 mg Q4HP PRN IV 10/29/24 10:15 Ketorolac Tromethamine 30 mg Q6HP PRN IV 10/29/24 10:15 11/03/24 10:14 10/30/24 18:55 30 MG Amitriptyline HCl 25 mg HS PO 10/29/24 22:00 10/29/24 20:57 25 MG Pantoprazole Sodium 40 mg DAILY PO 10/30/24 10:00 10/30/24 10:35 40 MG objective GENERAL: Alert and oriented x 3. No acute distress. EYES: PERRL, EOMI. Anicteric. HENT: Moist mucous membranes. LUNGS: Clear to auscultation bilaterally. CARDIOVASCULAR: Regular rate and rhythm. ABDOMEN: Soft, nontender and nondistended. EXTREMITIES: No edema. NEUROLOGIC: No focal neurological deficits. SKIN: Warm, dry. laboratory and microbiology Laboratory Tests 10/28/24 06:56 Test 10/28/24 06:56 Range/Units Serum Glucose 142 H 74-106 mg/dL Problem List Pre-op Cardiac Assessment. Right intertrochanteric fracture. Uncontrolled HTN. History of CVA. CKD. Tobacco use. Assessment/Plan Continued all current supportive medical care. Morphine and [place] for pain management. Amlodipine, Atenolol, Hydralazine, Labetalol. IV antibiotics as ordered. DVT and GI prophylactics. IV Hydralazine for SBP > 150. Additional plan as per the hospital course. Dietary Evaluation Review Comments: 1) Initiate Glucerna bid. Encourage optimal PO intake 2) Initiate vitamin C @ 500 mg bid and zinc sulfate @ 220 mg qd for 7-10 days 3) Collect HbA1c 4) Follow-up with physical therapy 5) Follow-up with nephrology and cardiology 6) Continue to monitor I&O, labs, and skin integrity Expected Outcomes/Goals: 1) appetite and labs to improve 2) wound to improve 3) follow-up in 3-5 days Plan discussed with: Patient KALEIGH ARAMBULA MD October 30, 2024 21:57
[2024-10-31] VITALS (8 sets, daily range): BP systolic 158–164; BP diastolic 67–77; PULSE 76–82; RESP 17–18; TEMP 97.9–98.7; O2SAT 96–100
[2024-10-31] MEDS ORDERED: RIVA10TA PO (09:38)
[2024-10-31] MEDS ORDERED: CEPH500C PO (09:38)
--- NOTE | 2024-10-31 09:39 | DVHPN2 ---
Reviewed: Care Plan, H&P, Labs, Medications, Previous Orders, Radiology Changes from previous H/P or p: No Changes Eyes: No Pain, No Vision change, No Conjunctivae inflammation, No Eyelid inflammation, No Other, No Redness ENT: No Ear pain, No Ear discharge, No Nose pain, No Nose discharge, No Nose congestion, No Mouth pain, No Mouth swelling, No Throat pain, No Throat swelling, No Other Cardiovascular: No Chest Pain, No Palpitations, No Orthopnea, No Paroxysmal Noc. Dyspnea, No Edema, No Lt Headedness, No Other Respiratory: No Cough, No Dry, No Shortness of breath, No SOB with excertion, No Wheezing, No Hemoptysis, No Pleuritic Pain, No Sputum, No Other Gastrointestinal: No Nausea, No Vomiting, No Abdominal Pain, No Diarrhea, No Constipation, No Melena, No Hematochezia, No Other Genitourinary: No Dysuria, No Frequency, No Incontinence, No Hematuria, No Retention, No Other Musculoskeletal: other (Hip pain); No neck pain, No shoulder pain, No arm pain, No back pain, No hand pain, No leg pain, No foot pain Skin: No Rash, No Lesions, No Jaundice, No Bruising, No Other Objective Vitals Vital Signs Date Time Temp Pulse Resp B/P (MAP) Pulse Ox O2 Delivery O2 Flow Rate FiO2 10/31/24 05:40 161/68 10/31/24 05:00 98.6 79 18 99 98.6 10/30/24 20:00 Room Air* 0 21 Intake/Output Intake and Output 10/31/24 07:00 Intake Total 1280 ml Output Total 1050 ml Balance 230 ml Intake Oral 1280 ml Output Urine Total 1050 ml Medications Current Medications Medications Dose Ordered Sig/Sandy Route Start Time Stop Time Status Last Admin Dose Admin Hydralazine HCl 10 mg Q6HP PRN IV 10/26/24 21:30 10/30/24 15:59 10 MG Gabapentin 300 mg BID PO 10/26/24 22:00 10/30/24 22:23 300 MG Amlodipine Besylate 10 mg DAILY PO 10/27/24 10:00 10/30/24 10:35 10 MG Diagnostic Test (Pha) 1 strip ACHS 10/26/24 22:00 10/30/24 22:00 1 STRIP Insulin Human Regular ACHS SC 10/26/24 22:00 10/30/24 22:42 6 UNITS Dextrose 50 ml UD PRN IV 10/26/24 21:30 Acetaminophen/ Hydrocodone Bitart 1 tab Q4HP PRN PO 10/26/24 21:30 10/29/24 12:30 1 TAB Docusate Sodium 100 mg BIDPRN PRN PO 10/26/24 21:30 Acetaminophen 650 mg Q6HP PRN PO 10/26/24 21:30 Morphine Sulfate 2 mg Q4HPRN PRN IV 10/26/24 21:30 10/30/24 22:24 2 MG Nitroglycerin 0.4 mg Q5MINP PRN SL 10/26/24 23:15 Morphine Sulfate 2 mg Q30M PRN IV 10/26/24 23:15 Labetalol HCl 10 mg Q4HPRN PRN IV 10/27/24 14:00 10/30/24 00:17 10 MG Atenolol 100 mg DAILY PO 10/28/24 10:00 10/30/24 10:36 100 MG Hydralazine HCl 25 mg Q8HR PO 10/27/24 14:00 10/31/24 05:40 25 MG Enoxaparin Sodium 40 mg DAILY SC 10/30/24 10:00 10/30/24 10:36 40 MG Diphenhydramine HCl 25 mg Q4HP PRN IV 10/29/24 10:15 Ondansetron HCl 4 mg Q4HP PRN IV 10/29/24 10:15 Ketorolac Tromethamine 30 mg Q6HP PRN IV 10/29/24 10:15 11/03/24 10:14 10/31/24 09:17 30 MG Amitriptyline HCl 25 mg HS PO 10/29/24 22:00 10/30/24 22:23 25 MG Pantoprazole Sodium 40 mg DAILY PO 10/30/24 10:00 10/30/24 10:35 40 MG Laboratory Results Laboratory Tests 10/28/24 06:56 Urinalysis Test 10/26/24 20:45 Urine Color Light-yellow (Yellow) Urine Clarity Clear (Clear) Urine pH 5.5 (5.0-9.0) Urine Specific [place] 1.005 (1.001-1.035) Urine Protein Negative (Negative) Urine Ketones Negative (Negative) Urine Blood Negative /uL (Negative) Urine Nitrite Negative (Negative) Urine Bilirubin Negative (Negative) Urine Urobilinogen Normal mg/dL (Negative) Urine Leukocyte Esterase 2+ /uL (Negative) Urine RBC 2 /hpf (0 - 4) Urine Microscopic WBC 4 /HPF (0-5) Urine Squamous Epithelial Cells None seen /hpf (<5) Urine Bacteria Few /hpf (None Seen) H Urine Glucose Normal mg/dL (Normal) Microbiology Microbiology Date/Time Source Procedure Growth Status 10/27/24 06:16 Nose MRSA Screen - Final Complete 10/26/24 20:45 Voided Urine Urine Culture - Final Escherichia coli Complete Labs and/or images reviewed: Labs reviewed by me, Image(s) reviewed by me Assessment/Plan Assessment/Plan Acute Comminuted displaced intertrochanteric fracture proximal right femur with involvement of the greater and lesser trochanter. Cardiology Dr. Reyes cleared for surgery, Status post Open reduction internal fixation of right hip fracture, by Dr Pagan on 10-29-24 Mechanical fall Anxiety Arthritis Asthma CKD COPD History of CVA History of depression Diabetes UTI Hypertensive urgency Hyperlipidemia GERD Possible Decubitus ulcer on the back: Wound care nurse consult History of two L spine surgeries and to C-spine surgeries Echo 65 % ejection fraction Cleared for discharge by orthopedics Discharged home on home health for physical therapy Plan discussed with: Patient My Orders Orders - COTY TOWNSEND MD Procedure Category Date Status Time * [facility] [employer] CONS 10/31/24 Transmitted Consult Refer To Home Health MARIMAR 10/31/24 In Process 09:31 Date of Service: October 31, 2024 Billing Provider: COTY TOWNSEND MD Common Visit Codes: [id number] INP/OBS CARE(HIGH) COTY TOWNSEND MD October 31, 2024 09:39
--- NOTE | 2024-10-31 10:06 | DVHDS2 ---
Discharge Summary Date of Admission October 26, 2024 at 23:11 Date of Discharge: October 31, 2024 Admitting Diagnosis Fracture right femur Wounds: Fracture right femur Labs/Diagnostic Data: Laboratory Results Test 10/31/24 05:49 10/28/24 06:56 10/26/24 20:45 POC Glucose 112 mg/dl (70-106) White Blood Count 9.5 10^3/uL (4.4-10.8) Red Blood Count 3.82 10^6/uL (4.0-5.20) Hemoglobin 11.0 g/dL (12.2-16.2) Hematocrit 32.4 % (36.0-46.0) Mean Corpuscular Volume 84.7 fL (80.0-100.0) Mean Corpuscular Hemoglobin 28.7 pg (28.0-32.0) Mean Corpuscular Hemoglobin Concent 33.9 g/dL (32.0-36.0) Red Cell Distribution Width 14.0 % (11.8-14.3) Platelet Count 616 10^3/uL (140-450) Mean Platelet Volume 6.2 fL (6.9-10.8) Neutrophils (%) (Auto) 70.6 % (37.0-80.0) Lymphocytes (%) (Auto) 17.5 % (10.0-50.0) Monocytes (%) (Auto) 8.7 % (0.0-12.0) Eosinophils (%) (Auto) 2.5 % (0.0-7.0) Basophils (%) (Auto) 0.7 % (0.0-2.0) Neutrophils # (Auto) 6.7 10 ^3/uL (1.6-8.6) Lymphocytes # (Auto) 1.7 10 ^3/uL (0.4-5.4) Monocytes # (Auto) 0.8 10 ^3/uL (0-1.3) Eosinophils # (Auto) 0.2 10 ^3/uL (0-0.8) Basophils # (Auto) 0.1 10 ^3/uL (0-0.2) Nucleated Red Blood Cells 0.0 % Prothrombin Time 10.7 sec (9.3-11.8) Prothrombin Time INR 1.01 (0.9-1.15) Activated Partial Thromboplast Time 27.7 SEC (24.5-34.5) Sodium Level 141 mmol/L (136-145) Potassium Level 4.2 mmol/L (3.5-5.1) Chloride Level 108 mmol/L (98-107) Carbon Dioxide Level 25 mmol/L (20-31) Anion Gap 8 (5-15) Blood Urea Nitrogen 17 mg/dL (9-23) Creatinine 1.55 mg/dL (0.550-1.02) Glomerular Filtration Rate Calc 36 mL/min (>90) BUN/Creatinine Ratio 11.0 (10.0-20.0) Serum Glucose 142 mg/dL (74-106) Calcium Level 10.6 mg/dL (8.7-10.4) Total Bilirubin 0.2 mg/dL (0.2-1.0) Aspartate Amino Transferase (AST) 11 U/L (13-40) Alanine Aminotransferase (ALT) 14 U/L (7-40) Alkaline Phosphatase 178 U/L (46-116) Total Protein 7.0 g/dL (5.7-8.2) Albumin 4.2 g/dL (3.2-4.8) Urine Color Light-yellow (Yellow) Urine Clarity Clear (Clear) Urine pH 5.5 (5.0-9.0) Urine Specific [place] 1.005 (1.001-1.035) Urine Protein Negative (Negative) Urine Ketones Negative (Negative) Urine Blood Negative /uL (Negative) Urine Nitrite Negative (Negative) Urine Bilirubin Negative (Negative) Urine Urobilinogen Normal mg/dL (Negative) Urine Leukocyte Esterase 2+ /uL (Negative) Urine RBC 2 /hpf (0 - 4) Urine Microscopic WBC 4 /HPF (0-5) Urine Squamous Epithelial Cells None seen /hpf (<5) Urine Bacteria Few /hpf (None Seen) Urine Glucose Normal mg/dL (Normal) Other Laboratory Tests 10/28/24 06:56 Brief Hx & Hospital Course: Patient had a mechanical fall at home and sustained right femur fracture underwent ORIF by Dr Pagan on 10-29-24 . patient was started on Ancef postop prophylactically. Cleared for discharge by orthopedic patient received physical therapy history of anxiety arthritis asthma CKD COPD CVA depression diabetes hypertension hyperlipidemia GERD. Comorbid conditions managed appropriately cardiology Dr. Reyes cleared for surgery patient being discharged home on home health for physical therapy safety evaluation medication management. Prescription for Keflex and prophylactic Xarelto transmitted to the pharmacy. Patient refused senior living facility placement \\ Consults/Reason for consult Orthopedic Dr Pagan Operations or Procedures ORIF right femur fracture Condition at Discharge: Good Final Diagnosis/Problems List Acute Comminuted displaced intertrochanteric fracture proximal right femur with involvement of the greater and lesser trochanter. Cardiology Dr. Reyes cleared for surgery, Status post Open reduction internal fixation of right hip fracture, by Dr Pagan on 10-29-24 Mechanical fall Anxiety Arthritis Asthma CKD COPD History of CVA History of depression Diabetes UTI Hypertensive urgency Hyperlipidemia GERD Possible Decubitus ulcer on the back: Wound care nurse consult History of two L spine surgeries and to C-spine surgeries Echo 65 % ejection fraction Discharge Disposition: Home with Health Services Discharge Instruct/Medications Diet: Cardiac 2g Na,low cholest Activity: See Comment Activity comment: Weight-bearing as tolerated right lower extremity Follow Up/Referral: Follow up with the primary Dr in one week Follow up with the orthopedic Dr Pagan in two weeks Follow up with the pain management Dr Continue all your previous home meds Medications: Keflex Xarelto 10 mg p.o. daily for 14 days for DVT prophylax Transmitted to [facility] (Time taken for discharge summary 35 minutes) Discharge Statement: "Patient was advised to return to the ER or call 911 if any headaches, dizziness, shortness of breath, chest pain, abdominal pain, bleeding, fevers, or worsening of medical condition. Patient was counseled about treatment plan, medications, possible side effects, patientverbalized understanding. All questions were answered to the best of my ability. This discharge took greater then 30 minutes in planning, reviewing documentation, counseling the patient, and discussing with other team members." ASSESSMENT ASSESSMENT Hospital Course Uneventful Postop course Assessment Acute Comminuted displaced intertrochanteric fracture proximal right femur with involvement of the greater and lesser trochanter. Cardiology Dr. Reyes cleared for surgery, Status post Open reduction internal fixation of right hip fracture, by Dr Pagan on 10-29-24 Mechanical fall Anxiety Arthritis Asthma CKD COPD History of CVA History of depression Diabetes UTI Hypertensive urgency Hyperlipidemia GERD Possible Decubitus ulcer on the back: Wound care nurse consult History of two L spine surgeries and to C-spine surgeries Echo 65 % ejection fraction Date of Service: October 31, 2024 Billing Provider: COTY TOWNSEND MD Visit Codes: 41482-BUY/OBS DISCH DAY >30min COTY TOWNSEND MD October 31, 2024 10:06
--- NOTE | 2024-10-31 21:03 | DVHPN2 ---
Progress Note - Dictate Date Seen: October 31, 2024 Medical Necessity Reason Pt with a Central, PICC or Fol: Yes The following are medically ne: [place] Catheter Subjective Patient was seen and evaluated in follow up. Patient complains of right hip discomfort. Patient is being planned for discharge with services. BS are in the low 100's. Telemetry reviewed. vital signs Vital Sign Date Time Temp Pulse Resp B/P (MAP) Pulse Ox O2 Delivery O2 Flow Rate FiO2 10/31/24 14:17 161/73 10/31/24 09:33 81 10/31/24 09:00 98.7 17 97 98.7 10/31/24 07:30 Room Air* 0 21 Total Intake and Output 10/30/24 10/30/24 10/31/24 15:00 23:00 07:00 Intake Total 780 ml 500 ml Output Total 300 ml 750 ml Balance 480 ml -250 ml medications Current Medications Medications Dose Ordered Sig/Sandy Route Start Time Stop Time Status Last Admin Dose Admin Hydralazine HCl 10 mg Q6HP PRN IV 10/26/24 21:30 10/30/24 15:59 10 MG Gabapentin 300 mg BID PO 10/26/24 22:00 10/31/24 09:40 300 MG Amlodipine Besylate 10 mg DAILY PO 10/27/24 10:00 10/31/24 09:33 10 MG Diagnostic Test (Pha) 1 strip ACHS 10/26/24 22:00 10/30/24 22:00 1 STRIP Insulin Human Regular ACHS SC 10/26/24 22:00 10/30/24 22:42 6 UNITS Dextrose 50 ml UD PRN IV 10/26/24 21:30 Acetaminophen/ Hydrocodone Bitart 1 tab Q4HP PRN PO 10/26/24 21:30 10/31/24 14:17 1 TAB Docusate Sodium 100 mg BIDPRN PRN PO 10/26/24 21:30 Acetaminophen 650 mg Q6HP PRN PO 10/26/24 21:30 Morphine Sulfate 2 mg Q4HPRN PRN IV 10/26/24 21:30 10/30/24 22:24 2 MG Nitroglycerin 0.4 mg Q5MINP PRN SL 10/26/24 23:15 Morphine Sulfate 2 mg Q30M PRN IV 10/26/24 23:15 Labetalol HCl 10 mg Q4HPRN PRN IV 10/27/24 14:00 10/30/24 00:17 10 MG Atenolol 100 mg DAILY PO 10/28/24 10:00 10/31/24 09:33 100 MG Hydralazine HCl 25 mg Q8HR PO 10/27/24 14:00 10/31/24 14:17 25 MG Enoxaparin Sodium 40 mg DAILY SC 10/30/24 10:00 10/31/24 09:37 40 MG Diphenhydramine HCl 25 mg Q4HP PRN IV 10/29/24 10:15 Ondansetron HCl 4 mg Q4HP PRN IV 10/29/24 10:15 Ketorolac Tromethamine 30 mg Q6HP PRN IV 10/29/24 10:15 11/03/24 10:14 10/31/24 09:17 30 MG Amitriptyline HCl 25 mg HS PO 10/29/24 22:00 10/30/24 22:23 25 MG Pantoprazole Sodium 40 mg DAILY PO 10/30/24 10:00 10/31/24 09:33 40 MG objective GENERAL: Alert and oriented x 3. No acute distress. EYES: PERRL, EOMI. Anicteric. HENT: Moist mucous membranes. LUNGS: Clear to auscultation bilaterally. CARDIOVASCULAR: Regular rate and rhythm. ABDOMEN: Soft, nontender and nondistended. EXTREMITIES: No edema. NEUROLOGIC: No focal neurological deficits. SKIN: Warm, dry. laboratory and microbiology Laboratory Tests 10/28/24 06:56 Test 10/28/24 06:56 Range/Units Serum Glucose 142 H 74-106 mg/dL Problem List Pre-op Cardiac Assessment. Right intertrochanteric fracture. Uncontrolled HTN. History of CVA. CKD. Tobacco use. Assessment/Plan Continued all current supportive medical care. Morphine and Walker for pain management. Amlodipine, Atenolol, Hydralazine, Labetalol. DVT and GI prophylactics. IV Hydralazine for SBP > 150. Additional plan as per the hospital course. Dietary Evaluation Review Comments: 1) Initiate Glucerna bid. Encourage optimal PO intake 2) Initiate vitamin C @ 500 mg bid and zinc sulfate @ 220 mg qd for 7-10 days 3) Collect HbA1c 4) Follow-up with physical therapy 5) Follow-up with nephrology and cardiology 6) Continue to monitor I&O, labs, and skin integrity Expected Outcomes/Goals: 1) appetite and labs to improve 2) wound to improve 3) follow-up in 3-5 days Plan discussed with: Patient KALEIGH ARAMBULA MD October 31, 2024 14:50
== END 2024-10-31 18:40 | disposition home health service (06) | DRG 481 ==
LOC: ER 14:34 → EDBD 14:34 → OVERFLOW 23:11 → TELE-WESTW 10-27 04:09
PROVIDERS: ADMIT Family Medicine; ATTEND Family Medicine
PROC: 0QS604Z Reposition Right Upper Femur with Internal Fixation Device, Open Approach (ICD-10-PCS; principal; 2024-10-29 08:53)
DX: S72.141A Displaced intertrochanteric fracture of right femur, initial encounter for closed fracture (principal); I13.0 Hypertensive heart and chronic kidney disease with heart failure and stage 1 through stage 4 chronic kidney disease, or unspecified chronic kidney disease; N17.9 Acute kidney failure, unspecified; N39.0 Urinary tract infection, site not specified; N18.4 Chronic kidney disease, stage 4 (severe); L89.109 Pressure ulcer of unspecified part of back, unspecified stage; I16.0 Hypertensive urgency; I50.9 Heart failure, unspecified; E11.22 Type 2 diabetes mellitus with diabetic chronic kidney disease; L89.322 Pressure ulcer of left buttock, stage 2; L89.151 Pressure ulcer of sacral region, stage 1; E11.40 Type 2 diabetes mellitus with diabetic neuropathy, unspecified; J44.89 Other specified chronic obstructive pulmonary disease; K21.9 Gastro-esophageal reflux disease without esophagitis; F41.9 Anxiety disorder, unspecified; E78.5 Hyperlipidemia, unspecified; Z90.710 Acquired absence of both cervix and uterus; Z86.73 Personal history of transient ischemic attack (TIA), and cerebral infarction without residual deficits; Z83.3 Family history of diabetes mellitus; Z82.49 Family history of ischemic heart disease and other diseases of the circulatory system; Z80.1 Family history of malignant neoplasm of trachea, bronchus and lung; Z72.0 Tobacco use; W18.39XA Other fall on same level, initial encounter; Y93.89 Activity, other specified; Y92.098 Other place in other non-institutional residence as the place of occurrence of the external cause; Y99.8 Other external cause status
CPT/HCPCS: 36415; 71045; 72192; 73501; 76000; 80053; 81001; 82962; 85025; 85610; 85730; 86850; 86900; 86901; 87081; 87086; 87088; 87186; 93005; 96374; 96375; 97110; 97116; 97163; 97530; A4565; G0378; J1815; J1885; J2003; J2250; J2405; J2704

== ENCOUNTER 2025-04-26 08:58 | Outpatient (CLI) | payer OTHER, MEDICAID ==
[~2025-04-26] VITALS: Ht 160 cm; Wt 64.9 kg
[~2025-04-26 08:58] MED LIST changes: +CEPH500C PO; -OMEP20CA74 PO; +PANT40T PO; +RIVA10TA PO
[2025-04-26] MEDS: REGADENOSON 0.4 MG/5 ML SYRG IV ONE ×2 (11:06→11:14)
--- NOTE | 2025-04-29 08:27 | DVHSR ---
APPROVED REPORT Exam: Nuclear Stress Test BMI: 0 Stress Test Details Stress Test: Pharmacologic stress testing performed using 0.4 mg of regadenoson per 5 mL given IV over 10 seconds. HR Resting HR: 71 bpm Max Heart Rate (APMHR): 152.984722 bpm Max HR Achieved: 81 bpm Target HR (85% APMHR): 129.836326 bpm % of APMHR: 53.29 Recovery HR: 74 bpm BP Resting BP: 183/75 mmHg Recovery BP: 166/70 mmHg ECG Resting ECG: Sinus Rhythm Clinical Reason for Termination: Completed protocol Nurse Comments Recieved pt. from [facility]. A/Ox4 on RA. Connected to heater planer operator, VS stable. PIV flushes well. Reviewed POC. Pt. verbalized understanding of procedure including risks and side effects, agrees for stress testing. Lexiscan stress test performed per protocol. [facility] tech administered Cardiolite. Pt. tolerated well. Pt. stable, no change on exam. VS returned to baseline. Transferred to [facility] via wheelchair w/ tech. Stress ECG Conclusion lvef 58% inferior wall ischemia NM EXAM: Myocardial Perfusion REST/STRESS Imaging Protocol: Rest Tc-99m/Stress Tc-99m 1 day Resting Data Rest SPECT myocardial perfusion imaging was performed in supine position 60 minutes following the intravenous injection of 8.0 mCi of Tc-99m Sestamibi. Time of rest injection: 09:44 Date: 04/26/2025 Time of rest imagin:44 Date: 04/26/2025 Administration Route: IV Administration Site: Right Hand Pharmacologic Stress Pharmacologic stress test was performed by injecting Regadenoson 0.4 mg IV push followed by the intravenous injection of 30.6 mCi of Tc-99m Sestamibi. Time of stress injection: 11:15 Date: 04/26/2025 Time of stress imagin:15 Date: 04/26/2025 Administration Route: IV Administration Site: Right Hand Gated Stress SPECT was performed 60 minutes after stress injection. The images were gated to evaluate regional wall motion and calculate left ventricular ejection fraction. Stress only was performed in the Supine position. Nuclear Conclusion Nuclear Findings: positive for ischemia lvef 58% inferior wall ischemia
== END 2025-04-26 17:00 | disposition home or self-care (01) ==
LOC: XYW 08:58
PROVIDERS: ATTEND Internal Medicine
DX: I25.9 Chronic ischemic heart disease, unspecified (principal); R07.9 Chest pain, unspecified
CPT/HCPCS: 78452; 93017; A9500; J2785